=== PATIENT | male | born 1955 | race Caucasian/White ===

== ENCOUNTER 2017-07-23 15:53 | Inpatient (IN) ==
--- NOTE | 2017-07-23 16:07 | Emergency Department Note ---
Disposition Clinical Impression: Acute kidney injury, Cholecystitis Anemia Qualifiers: Anemia type: unspecified type Qualified Code(s): D64.9 - Anemia, unspecified [place] toxicity Qualifiers: Encounter type: initial encounter Injury intent: accidental or unintentional Qualified Code(s): T56.891A - Toxic effect of other metals, accidental ( unintentional), initial encounter Cholelithiasis Qualifiers: Cholelithiasis location: gallbladder Cholecystitis presence: with cholecystitis Cholecystitis acuity: acute Biliary obstruction: without biliary obstruction Qualified Code(s): K80.00 - Calculus of gallbladder with acute cholecystitis without obstruction Ascites Qualifiers: Ascites type: other type Qualified Code(s): R18.8 - Other ascites Disposition: Admitted As Inpatient Condition: Fair Time of Disposition: 20:27 General Adult HPI - General Chief complaint: ED Urogenital-Male Stated complaint: dialysis referral Time Seen by Provider: 07/23/17 15:59 Source: patient, EMS Nursing Notes Reviewed: Yes Vital Signs Reviewed: Yes - History of Present Illness HPI Narrative: Mr. Durand, a 62-year-old male, [facility] need [facility]. Patient appears confused and is not sure why he is here. States he has a history of cardiac problems but is otherwise unable to provide additional detail. He is alert to self, location, and here. He is not allergic to situation or month. Pain Scale: 0 - Related Data Home Medications Medication Instructions Recorded Confirmed Aspirin 81 mg PO DAILY 05/17/15 07/23/17 Doxepin [[place]] 25 mg PO BID 05/17/15 07/23/17 Albuterol Sulfate [Ventolin Hfa] 2 puff IH Q4H PRN 07/23/17 07/23/17 Atorvastatin Calcium [Lipitor] 20 mg PO HS 07/23/17 07/23/17 Buspirone HCl [Buspar] 10 mg PO BID 07/23/17 07/23/17 Carvedilol [Carvedilol] 12.5 mg PO BID 07/23/17 07/23/17 Citalopram Hydrobromide 40 mg PO QPM 07/23/17 07/23/17 [Citalopram HBr] Lansoprazole [Prevacid] 30 mg PO DAILY 07/23/17 07/23/17 [place] Carbonate [[place] 600 mg PO BID 07/23/17 07/23/17 Carbonate] Ropinirole HCl [Requip] 0.5 mg PO DAILY 07/23/17 07/23/17 Allergies Allergy/AdvReac Type Severity Reaction Status Date / Time No Known Allergies Allergy Verified 05/17/15 16:41 All systems ED: reviewed and negative except as stated. Review of Systems: As Per HPI Past Medical History - Past Medical History Medical history: Reports: asthma, COPD, hepatitis, myocardial infarction, peripheral artery disease Psychiatric history: Reports: anxiety, bipolar, depression, panic disorder, PTSD , schizophrenia - Social History Smoking Status: Current every day smoker Alcohol use: Reports: recent Drug use: Reports: other Physical Exam Vital Signs Reviewed General: Patient is alert, oriented, and in moderate distress-he is shaking, somnolent but otherwise stable and complains of no symptoms. HEENT: No facial asymmetry. Head is normocephalic and atraumatic. PERRLA, EOMI. mucosa moist. Trachea midline. Cardiovascular: Heart regular rate and rhythm without clicks, rubs, gallops, or murmurs. No JVD. PMI nondisplaced. Respiratory: Symmetric chest rise with good respiratory effort. Bilateral breath sounds are clear without wheezing, crackles, or rhonchi. Abdomen: Bowel sounds present normoactive . Abdomen is soft, distended, nontender. Unable to assess organomegaly secondary to patient's body habitus. Musculoskeletal: Spontaneously moving all extremities. Neuro: Cranial nerves II through XII without deficit. Sensation light touch intact. An: Warm, dry, intact. Psych: Patient's affect is appropriate for situation. - General General appearance: alert, in no apparent distress Course Course Narrative: On intake, patient is shaking with his arms crossed across his chest. Vital signs are stable. He has difficulty answering direct questions. He appears somnolent. He is maintaining his airway. We will continue to monitor. Per [facility] paperwork, patient is homeless and was at [facility]. He did not have room for them thus they [facility]. [facility] noted he was somnolent. [facility] lab work shows anemia with hemoglobin of 9, elevated bilirubin, elevated BUNs of 43, elevated creatinine of 3.37. At this point, they transferred the patient to this facility for dialysis. Patient is on lithium; could have lithium toxicity. Patient has acutely elevated creatinine. I discussed the patient with on-call general surgery, Dr. Brizuela, who agrees to see the patient as consultation. Given the patient has no white count, minimal elevation of bilirubin, and no elevation in a ALT or ALP, no indication at this time for antibiotics. I discussed the patient with the accepting hospitalist, Dr. Everett, who agrees to accept the patient with general surgery consultation. Abdomen/Pelvis CT 07/23/17 16:01 IMPRESSION: The gallbladder is distended, with some intraluminal stones identified. There is also some pericholecystic inflammatory change. Differential considerations include acute cholecystitis, though given the underlying intra-abdominal ascites, some of the periapical cholecystic fluid could be related to 3rd spacing. Intra-abdominal and pelvic ascites is identified, with some mesenteric edema noted as well. Changes may be related to 3rd spacing. No paraesophageal varices are identified. Splenomegaly is present. The liver does not appear shrunken or significantly nodular in appearance. Cirrhosis cannot be excluded. There is a small right pleural effusion, with bibasilar airspace disease and some bronchial thickening which may be related to bronchiolitis and bronchopneumonia. CT findings suggestive of anemia with low-attenuation within the cardiac chambers. D/ / Tho Yeager MD / Tho Yeager MD Interpreting Provider: Tho Yeager MD Head CT 07/23/17 16:01 IMPRESSION: No acute intracranial abnormality. D/ / Brandon Evans MD / Brandon Evans MD Interpreting Provider: Brandon Evans MD Chest X-Ray 07/23/17 16:02 IMPRESSION: Findings suggest congestive heart failure D/ / Brandon Evans MD / Brandon Evans MD Interpreting Provider: Brandon Evans MD Gallbladder Ultrasound 07/23/17 17:30 IMPRESSION: Cholelithiasis seen on CT is not definitely visualized on ultrasound which may be due to technical limitations. The gallbladder is distended and contains a small amount of sludge and has mild wall thickening which is nonspecific and may be due to the patient's edematous state. Mild acute cholecystitis is not entirely excluded. Clinical correlation recommended. No evidence of biliary obstruction. D/ / Diane Joseph MD / Diane Joseph MD Interpreting Provider: Diane Joseph MD Vital Signs Temperature 97.8 F 07/23/17 15:55 Pulse Rate 52 07/23/17 15:55 Respiratory Rate 18 07/23/17 15:55 Blood Pressure 120/62 07/23/17 15:55 O2 Sat by Pulse Oximetry 98 07/23/17 15:55 Temperature 97.8 F 07/23/17 15:55 Pulse Rate 51 07/23/17 19:19 Respiratory Rate 18 07/23/17 20:44 Blood Pressure 135/67 07/23/17 20:44 O2 Sat by Pulse Oximetry 100 07/23/17 19:19 Oxygen Delivery Oxygen Delivery Room Air Medical Decision Making - Medical Records Medical records reviewed: Yes I reviewed the patient's medical records. - Lab Data Lab results reviewed: Yes I reviewed the patient's lab results. Result diagrams: 07/23/17 17:20 07/23/17 19:01 Lab Results 07/23/17 07/23/17 07/23/17 Range/Units 17:20 17:20 17:20 WBC 5.1 (4.3-11.1) K/mcL RBC 2.64 L (4.19-5.50) M/mcL Hgb 8.5 L (12.9-16.9) g/dL Hct 27.2 L (37.5-50.1) % MCV 103.0 H (83.0-100.0) fL MCH 32.2 (28.0-33.3) pg MCHC 31.3 L (31.6-35.5) g/dL RDW 15.4 H (11.5-14.5) % Plt Count 62 L (140-400) K/mcL MPV 11.3 (9.4-12.4) fL Immature Gran % 0.4 (0-4) % Seg Neutrophils % 64.9 % Lymphocytes % 20.3 % Monocytes % 10.5 % Eosinophils % 3.1 % Basophils % 0.8 % Neutrophils # 3.3 (1.6-8.9) K/mcL Lymphocytes # 1.0 (0.6-4.6) K/mcL Monocytes # 0.5 (0.0-1.3) K/mcL Eosinophils # 0.2 (0.0-0.6) K/mcL Basophils # 0.0 (0.0-0.2) K/mcL Immature Plt Fraction 7.1 H (1.1-6.1) % Sodium (136-145) mEq/L Potassium (3.5-4.5) mEq/L Chloride (98-109) mEq/L Carbon Dioxide (19-29) mEq/L BUN (8-26) mg/dL Creatinine (0.72-1.25) mg/dL Est GFR ( Amer) (> 60) Est GFR (Non-Af Amer) (> 60) BUN/Creatinine Ratio (6-26) Glucose (70-99) mg/dL Calculated Osmolality (280-300) Lactic Acid 0.9 (0.5-2.2) mmol/L Calcium (8.6-10.8) mg/dL Total Bilirubin 1.4 H (0.2-1.2) mg/dL Direct Bilirubin 0.7 H (0.0-0.5) mg/dL Indirect Bilirubin 0.7 (0.0-1.2) mg/dL AST 48 H (5-34) Units/L ALT 25 (0-55) Units/L Alkaline Phosphatase 105 (38-126) Units/L Ammonia (18-72) mcmol/L Troponin I (0-0.03) ng/mL B-Natriuretic Peptide (0-100) pg/mL Serum Total Protein 6.9 (6.0-8.3) g/dL Albumin 2.7 L (3.5-5.0) g/dL Globulin 4.2 H (2.4-3.5) g/dL Albumin/Globulin Ratio 0.6 L (1.1-2.2) Lipase 81 H (8-78) Units/L Urine Color (Yellow) Urine Clarity (Clear) Urine pH (5.0-8.0) pH Units Ur Specific [place] (1.010-1.025) Urine Protein (Neg-Trace) mg/dL Urine Glucose (UA) (Normal) mg/dL Urine Ketones (Negative) mg/dL Urine Blood (Negative) Urine Nitrite (Negative) Urine Bilirubin (Negative) Urine Urobilinogen (Normal) mg/dL Ur Leukocyte Esterase (Negative) Urine Microscopic RBC (0-3) per hpf Urine Microscopic WBC (0-3) per hpf Ur Squamous Epith Cells (None-Few) per lpf Urine Bacteria (None-Few) per hpf Hyaline Casts (None-Few) per lpf [place] (0.6-1.2) mEq/L Hepatitis A IgM Ab (Nonreactive) Hep Bs Antigen (Nonreactive) Hep B Core IgM Ab (Nonreactive) Hepatitis C Ab Screen (Nonreactive) 07/23/17 07/23/17 07/23/17 Range/Units 17:20 17:20 17:20 WBC (4.3-11.1) K/mcL RBC (4.19-5.50) M/mcL Hgb (12.9-16.9) g/dL Hct (37.5-50.1) % MCV (83.0-100.0) fL MCH (28.0-33.3) pg MCHC (31.6-35.5) g/dL RDW (11.5-14.5) % Plt Count (140-400) K/mcL MPV (9.4-12.4) fL Immature Gran % (0-4) % Seg Neutrophils % % Lymphocytes % % Monocytes % % Eosinophils % % Basophils % % Neutrophils # (1.6-8.9) K/mcL Lymphocytes # (0.6-4.6) K/mcL Monocytes # (0.0-1.3) K/mcL Eosinophils # (0.0-0.6) K/mcL Basophils # (0.0-0.2) K/mcL Immature Plt Fraction (1.1-6.1) % Sodium (136-145) mEq/L Potassium (3.5-4.5) mEq/L Chloride (98-109) mEq/L Carbon Dioxide (19-29) mEq/L BUN (8-26) mg/dL Creatinine (0.72-1.25) mg/dL Est GFR ( Amer) (> 60) Est GFR (Non-Af Amer) (> 60) BUN/Creatinine Ratio (6-26) Glucose (70-99) mg/dL Calculated Osmolality (280-300) Lactic Acid (0.5-2.2) mmol/L Calcium (8.6-10.8) mg/dL Total Bilirubin (0.2-1.2) mg/dL Direct Bilirubin (0.0-0.5) mg/dL Indirect Bilirubin (0.0-1.2) mg/dL AST (5-34) Units/L ALT (0-55) Units/L Alkaline Phosphatase (38-126) Units/L Ammonia (18-72) mcmol/L Troponin I 0.01 (0-0.03) ng/mL B-Natriuretic Peptide 792 H (0-100) pg/mL Serum Total Protein (6.0-8.3) g/dL Albumin (3.5-5.0) g/dL Globulin (2.4-3.5) g/dL Albumin/Globulin Ratio (1.1-2.2) Lipase (8-78) Units/L Urine Color (Yellow) Urine Clarity (Clear) Urine pH (5.0-8.0) pH Units Ur Specific [place] (1.010-1.025) Urine Protein (Neg-Trace) mg/dL Urine Glucose (UA) (Normal) mg/dL Urine Ketones (Negative) mg/dL Urine Blood (Negative) Urine Nitrite (Negative) Urine Bilirubin (Negative) Urine Urobilinogen (Normal) mg/dL Ur Leukocyte Esterase (Negative) Urine Microscopic RBC (0-3) per hpf Urine Microscopic WBC (0-3) per hpf Ur Squamous Epith Cells (None-Few) per lpf Urine Bacteria (None-Few) per hpf Hyaline Casts (None-Few) per lpf [place] (0.6-1.2) mEq/L Hepatitis A IgM Ab Nonreactive (Nonreactive) Hep Bs Antigen Nonreactive (Nonreactive) Hep B Core IgM Ab Nonreactive (Nonreactive) Hepatitis C Ab Screen Reactive H (Nonreactive) 07/23/17 07/23/17 07/23/17 Range/Units 17:20 17:33 19:01 WBC (4.3-11.1) K/mcL RBC (4.19-5.50) M/mcL Hgb (12.9-16.9) g/dL Hct (37.5-50.1) % MCV (83.0-100.0) fL MCH (28.0-33.3) pg MCHC (31.6-35.5) g/dL RDW (11.5-14.5) % Plt Count (140-400) K/mcL MPV (9.4-12.4) fL Immature Gran % (0-4) % Seg Neutrophils % % Lymphocytes % % Monocytes % % Eosinophils % % Basophils % % Neutrophils # (1.6-8.9) K/mcL Lymphocytes # (0.6-4.6) K/mcL Monocytes # (0.0-1.3) K/mcL Eosinophils # (0.0-0.6) K/mcL Basophils # (0.0-0.2) K/mcL Immature Plt Fraction (1.1-6.1) % Sodium (136-145) mEq/L Potassium (3.5-4.5) mEq/L Chloride (98-109) mEq/L Carbon Dioxide (19-29) mEq/L BUN (8-26) mg/dL Creatinine (0.72-1.25) mg/dL Est GFR ( Amer) (> 60) Est GFR (Non-Af Amer) (> 60) BUN/Creatinine Ratio (6-26) Glucose (70-99) mg/dL Calculated Osmolality (280-300) Lactic Acid (0.5-2.2) mmol/L Calcium (8.6-10.8) mg/dL Total Bilirubin (0.2-1.2) mg/dL Direct Bilirubin (0.0-0.5) mg/dL Indirect Bilirubin (0.0-1.2) mg/dL AST (5-34) Units/L ALT (0-55) Units/L Alkaline Phosphatase (38-126) Units/L Ammonia 31 (18-72) mcmol/L Troponin I (0-0.03) ng/mL B-Natriuretic Peptide (0-100) pg/mL Serum Total Protein (6.0-8.3) g/dL Albumin (3.5-5.0) g/dL Globulin (2.4-3.5) g/dL Albumin/Globulin Ratio (1.1-2.2) Lipase (8-78) Units/L Urine Color Yellow (Yellow) Urine Clarity Clear (Clear) Urine pH 6.0 (5.0-8.0) pH Units Ur Specific [place] 1.017 (1.010-1.025) Urine Protein Trace (Neg-Trace) mg/dL Urine Glucose (UA) Normal (Normal) mg/dL Urine Ketones Negative (Negative) mg/dL Urine Blood Small H (Negative) Urine Nitrite Negative (Negative) Urine Bilirubin Negative (Negative) Urine Urobilinogen Normal (Normal) mg/dL Ur Leukocyte Esterase Negative (Negative) Urine Microscopic RBC 3-5 H (0-3) per hpf Urine Microscopic WBC 3-5 H (0-3) per hpf Ur Squamous Epith Cells Many H (None-Few) per lpf Urine Bacteria None Seen (None-Few) per hpf Hyaline Casts None Seen (None-Few) per lpf [place] 3.1 H* (0.6-1.2) mEq/L Hepatitis A IgM Ab (Nonreactive) Hep Bs Antigen (Nonreactive) Hep B Core IgM Ab (Nonreactive) Hepatitis C Ab Screen (Nonreactive) 07/23/17 Range/Units 19:01 WBC (4.3-11.1) K/mcL RBC (4.19-5.50) M/mcL Hgb (12.9-16.9) g/dL Hct (37.5-50.1) % MCV (83.0-100.0) fL MCH (28.0-33.3) pg MCHC (31.6-35.5) g/dL RDW (11.5-14.5) % Plt Count (140-400) K/mcL MPV (9.4-12.4) fL Immature Gran % (0-4) % Seg Neutrophils % % Lymphocytes % % Monocytes % % Eosinophils % % Basophils % % Neutrophils # (1.6-8.9) K/mcL Lymphocytes # (0.6-4.6) K/mcL Monocytes # (0.0-1.3) K/mcL Eosinophils # (0.0-0.6) K/mcL Basophils # (0.0-0.2) K/mcL Immature Plt Fraction (1.1-6.1) % Sodium 133 L (136-145) mEq/L Potassium 4.5 (3.5-4.5) mEq/L Chloride 111 H (98-109) mEq/L Carbon Dioxide 18 L (19-29) mEq/L BUN 43 H (8-26) mg/dL Creatinine 3.27 H (0.72-1.25) mg/dL Est GFR ( Amer) 24 L (> 60) Est GFR (Non-Af Amer) 19 L (> 60) BUN/Creatinine Ratio 13 (6-26) Glucose 79 (70-99) mg/dL Calculated Osmolality 286 (280-300) Lactic Acid (0.5-2.2) mmol/L Calcium 9.1 (8.6-10.8) mg/dL Total Bilirubin (0.2-1.2) mg/dL Direct Bilirubin (0.0-0.5) mg/dL Indirect Bilirubin (0.0-1.2) mg/dL AST (5-34) Units/L ALT (0-55) Units/L Alkaline Phosphatase (38-126) Units/L Ammonia (18-72) mcmol/L Troponin I (0-0.03) ng/mL B-Natriuretic Peptide (0-100) pg/mL Serum Total Protein (6.0-8.3) g/dL Albumin (3.5-5.0) g/dL Globulin (2.4-3.5) g/dL Albumin/Globulin Ratio (1.1-2.2) Lipase (8-78) Units/L Urine Color (Yellow) Urine Clarity (Clear) Urine pH (5.0-8.0) pH Units Ur Specific [place] (1.010-1.025) Urine Protein (Neg-Trace) mg/dL Urine Glucose (UA) (Normal) mg/dL Urine Ketones (Negative) mg/dL Urine Blood (Negative) Urine Nitrite (Negative) Urine Bilirubin (Negative) Urine Urobilinogen (Normal) mg/dL Ur Leukocyte Esterase (Negative) Urine Microscopic RBC (0-3) per hpf Urine Microscopic WBC (0-3) per hpf Ur Squamous Epith Cells (None-Few) per lpf Urine Bacteria (None-Few) per hpf Hyaline Casts (None-Few) per lpf [place] (0.6-1.2) mEq/L Hepatitis A IgM Ab (Nonreactive) Hep Bs Antigen (Nonreactive) Hep B Core IgM Ab (Nonreactive) Hepatitis C Ab Screen (Nonreactive) - EKG Data EKG #1 EKG attestation: Yes I reviewed and interpreted this EKG. EKG results narrative: EKG dated 07/28/1716: 10 interpreted as sinus bradycardia with a rate of 50. Prolonged SD at 221. Sinus bradycardia with first-degree AV block. QRS 28, QT/QTC 49/462. Diffuse T-wave flattening present compared to EKG. Compared to previous EKG dated 02/09/2014 showing no acute ischemic changes.
--- NOTE | 2017-07-23 16:22 | Emergency Department Note ---
Disposition Clinical Impression: Acute kidney injury, Anemia, [place] toxicity, Cholelithiasis, Cholecystitis, Ascites Disposition: Admitted As Inpatient Condition: Fair General Adult HPI - General Chief complaint: ED General Medical Stated complaint: dialysis referral Time Seen by Provider: 07/23/17 15:59 Source: patient, EMS - History of Present Illness Pain Scale: 0 - Related Data Home Medications Medication Instructions Recorded Confirmed Aspirin 81 mg PO DAILY 05/17/15 07/23/17 Doxepin [Sinequan] 25 mg PO BID 05/17/15 07/23/17 Albuterol Sulfate [Ventolin Hfa] 2 puff IH Q4H PRN 07/23/17 07/23/17 Atorvastatin Calcium [Lipitor] 20 mg PO HS 07/23/17 07/23/17 Buspirone HCl [Buspar] 10 mg PO BID 07/23/17 07/23/17 Carvedilol [Carvedilol] 12.5 mg PO BID 07/23/17 07/23/17 Citalopram Hydrobromide 40 mg PO QPM 07/23/17 07/23/17 [Citalopram HBr] Lansoprazole [Prevacid] 30 mg PO DAILY 07/23/17 07/23/17 [place] Carbonate [[place] 600 mg PO BID 07/23/17 07/23/17 Carbonate] Ropinirole HCl [Requip] 0.5 mg PO DAILY 07/23/17 07/23/17 Allergies Allergy/AdvReac Type Severity Reaction Status Date / Time No Known Allergies Allergy Verified 05/17/15 16:41 Past Medical History - Past Medical History Medical history: Reports: asthma, COPD, hepatitis, myocardial infarction, peripheral artery disease Psychiatric history: Reports: anxiety, bipolar, depression, panic disorder, PTSD , schizophrenia - Social History Smoking Status: Current every day smoker Alcohol use: Reports: recent Drug use: Reports: other Physical Exam - General General appearance: alert, in no apparent distress Course Vital Signs Temperature 97.8 F 07/23/17 15:55 Pulse Rate 52 07/23/17 15:55 Respiratory Rate 18 07/23/17 15:55 Blood Pressure 120/62 07/23/17 15:55 O2 Sat by Pulse Oximetry 98 07/23/17 15:55 Temperature 97.8 F 07/23/17 15:55 Pulse Rate 51 07/23/17 19:19 Respiratory Rate 18 07/23/17 20:44 Blood Pressure 135/67 07/23/17 20:44 O2 Sat by Pulse Oximetry 100 07/23/17 19:19 Oxygen Delivery Oxygen Delivery Room Air Medical Decision Making - Lab Data Result diagrams: 07/23/17 17:20 07/23/17 19:01 Lab Results 07/23/17 07/23/17 07/23/17 Range/Units 17:20 17:20 17:20 WBC 5.1 (4.3-11.1) K/mcL RBC 2.64 L (4.19-5.50) M/mcL Hgb 8.5 L (12.9-16.9) g/dL Hct 27.2 L (37.5-50.1) % MCV 103.0 H (83.0-100.0) fL MCH 32.2 (28.0-33.3) pg MCHC 31.3 L (31.6-35.5) g/dL RDW 15.4 H (11.5-14.5) % Plt Count 62 L (140-400) K/mcL MPV 11.3 (9.4-12.4) fL Immature Gran % 0.4 (0-4) % Seg Neutrophils % 64.9 % Lymphocytes % 20.3 % Monocytes % 10.5 % Eosinophils % 3.1 % Basophils % 0.8 % Neutrophils # 3.3 (1.6-8.9) K/mcL Lymphocytes # 1.0 (0.6-4.6) K/mcL Monocytes # 0.5 (0.0-1.3) K/mcL Eosinophils # 0.2 (0.0-0.6) K/mcL Basophils # 0.0 (0.0-0.2) K/mcL Immature Plt Fraction 7.1 H (1.1-6.1) % Sodium (136-145) mEq/L Potassium (3.5-4.5) mEq/L Chloride (98-109) mEq/L Carbon Dioxide (19-29) mEq/L BUN (8-26) mg/dL Creatinine (0.72-1.25) mg/dL Est GFR ( Amer) (> 60) Est GFR (Non-Af Amer) (> 60) BUN/Creatinine Ratio (6-26) Glucose (70-99) mg/dL Calculated Osmolality (280-300) Lactic Acid 0.9 (0.5-2.2) mmol/L Calcium (8.6-10.8) mg/dL Total Bilirubin 1.4 H (0.2-1.2) mg/dL Direct Bilirubin 0.7 H (0.0-0.5) mg/dL Indirect Bilirubin 0.7 (0.0-1.2) mg/dL AST 48 H (5-34) Units/L ALT 25 (0-55) Units/L Alkaline Phosphatase 105 (38-126) Units/L Ammonia (18-72) mcmol/L Troponin I (0-0.03) ng/mL B-Natriuretic Peptide (0-100) pg/mL Serum Total Protein 6.9 (6.0-8.3) g/dL Albumin 2.7 L (3.5-5.0) g/dL Globulin 4.2 H (2.4-3.5) g/dL Albumin/Globulin Ratio 0.6 L (1.1-2.2) Lipase 81 H (8-78) Units/L Urine Color (Yellow) Urine Clarity (Clear) Urine pH (5.0-8.0) pH Units Ur Specific [place] (1.010-1.025) Urine Protein (Neg-Trace) mg/dL Urine Glucose (UA) (Normal) mg/dL Urine Ketones (Negative) mg/dL Urine Blood (Negative) Urine Nitrite (Negative) Urine Bilirubin (Negative) Urine Urobilinogen (Normal) mg/dL Ur Leukocyte Esterase (Negative) Urine Microscopic RBC (0-3) per hpf Urine Microscopic WBC (0-3) per hpf Ur Squamous Epith Cells (None-Few) per lpf Urine Bacteria (None-Few) per hpf Hyaline Casts (None-Few) per lpf [place] (0.6-1.2) mEq/L Hepatitis A IgM Ab (Nonreactive) Hep Bs Antigen (Nonreactive) Hep B Core IgM Ab (Nonreactive) Hepatitis C Ab Screen (Nonreactive) 07/23/17 07/23/17 07/23/17 Range/Units 17:20 17:20 17:20 WBC (4.3-11.1) K/mcL RBC (4.19-5.50) M/mcL Hgb (12.9-16.9) g/dL Hct (37.5-50.1) % MCV (83.0-100.0) fL MCH (28.0-33.3) pg MCHC (31.6-35.5) g/dL RDW (11.5-14.5) % Plt Count (140-400) K/mcL MPV (9.4-12.4) fL Immature Gran % (0-4) % Seg Neutrophils % % Lymphocytes % % Monocytes % % Eosinophils % % Basophils % % Neutrophils # (1.6-8.9) K/mcL Lymphocytes # (0.6-4.6) K/mcL Monocytes # (0.0-1.3) K/mcL Eosinophils # (0.0-0.6) K/mcL Basophils # (0.0-0.2) K/mcL Immature Plt Fraction (1.1-6.1) % Sodium (136-145) mEq/L Potassium (3.5-4.5) mEq/L Chloride (98-109) mEq/L Carbon Dioxide (19-29) mEq/L BUN (8-26) mg/dL Creatinine (0.72-1.25) mg/dL Est GFR ( Amer) (> 60) Est GFR (Non-Af Amer) (> 60) BUN/Creatinine Ratio (6-26) Glucose (70-99) mg/dL Calculated Osmolality (280-300) Lactic Acid (0.5-2.2) mmol/L Calcium (8.6-10.8) mg/dL Total Bilirubin (0.2-1.2) mg/dL Direct Bilirubin (0.0-0.5) mg/dL Indirect Bilirubin (0.0-1.2) mg/dL AST (5-34) Units/L ALT (0-55) Units/L Alkaline Phosphatase (38-126) Units/L Ammonia (18-72) mcmol/L Troponin I 0.01 (0-0.03) ng/mL B-Natriuretic Peptide 792 H (0-100) pg/mL Serum Total Protein (6.0-8.3) g/dL Albumin (3.5-5.0) g/dL Globulin (2.4-3.5) g/dL Albumin/Globulin Ratio (1.1-2.2) Lipase (8-78) Units/L Urine Color (Yellow) Urine Clarity (Clear) Urine pH (5.0-8.0) pH Units Ur Specific [place] (1.010-1.025) Urine Protein (Neg-Trace) mg/dL Urine Glucose (UA) (Normal) mg/dL Urine Ketones (Negative) mg/dL Urine Blood (Negative) Urine Nitrite (Negative) Urine Bilirubin (Negative) Urine Urobilinogen (Normal) mg/dL Ur Leukocyte Esterase (Negative) Urine Microscopic RBC (0-3) per hpf Urine Microscopic WBC (0-3) per hpf Ur Squamous Epith Cells (None-Few) per lpf Urine Bacteria (None-Few) per hpf Hyaline Casts (None-Few) per lpf [place] (0.6-1.2) mEq/L Hepatitis A IgM Ab Nonreactive (Nonreactive) Hep Bs Antigen Nonreactive (Nonreactive) Hep B Core IgM Ab Nonreactive (Nonreactive) Hepatitis C Ab Screen Reactive H (Nonreactive) 07/23/17 07/23/17 07/23/17 Range/Units 17:20 17:33 19:01 WBC (4.3-11.1) K/mcL RBC (4.19-5.50) M/mcL Hgb (12.9-16.9) g/dL Hct (37.5-50.1) % MCV (83.0-100.0) fL MCH (28.0-33.3) pg MCHC (31.6-35.5) g/dL RDW (11.5-14.5) % Plt Count (140-400) K/mcL MPV (9.4-12.4) fL Immature Gran % (0-4) % Seg Neutrophils % % Lymphocytes % % Monocytes % % Eosinophils % % Basophils % % Neutrophils # (1.6-8.9) K/mcL Lymphocytes # (0.6-4.6) K/mcL Monocytes # (0.0-1.3) K/mcL Eosinophils # (0.0-0.6) K/mcL Basophils # (0.0-0.2) K/mcL Immature Plt Fraction (1.1-6.1) % Sodium (136-145) mEq/L Potassium (3.5-4.5) mEq/L Chloride (98-109) mEq/L Carbon Dioxide (19-29) mEq/L BUN (8-26) mg/dL Creatinine (0.72-1.25) mg/dL Est GFR ( Amer) (> 60) Est GFR (Non-Af Amer) (> 60) BUN/Creatinine Ratio (6-26) Glucose (70-99) mg/dL Calculated Osmolality (280-300) Lactic Acid (0.5-2.2) mmol/L Calcium (8.6-10.8) mg/dL Total Bilirubin (0.2-1.2) mg/dL Direct Bilirubin (0.0-0.5) mg/dL Indirect Bilirubin (0.0-1.2) mg/dL AST (5-34) Units/L ALT (0-55) Units/L Alkaline Phosphatase (38-126) Units/L Ammonia 31 (18-72) mcmol/L Troponin I (0-0.03) ng/mL B-Natriuretic Peptide (0-100) pg/mL Serum Total Protein (6.0-8.3) g/dL Albumin (3.5-5.0) g/dL Globulin (2.4-3.5) g/dL Albumin/Globulin Ratio (1.1-2.2) Lipase (8-78) Units/L Urine Color Yellow (Yellow) Urine Clarity Clear (Clear) Urine pH 6.0 (5.0-8.0) pH Units Ur Specific [place] 1.017 (1.010-1.025) Urine Protein Trace (Neg-Trace) mg/dL Urine Glucose (UA) Normal (Normal) mg/dL Urine Ketones Negative (Negative) mg/dL Urine Blood Small H (Negative) Urine Nitrite Negative (Negative) Urine Bilirubin Negative (Negative) Urine Urobilinogen Normal (Normal) mg/dL Ur Leukocyte Esterase Negative (Negative) Urine Microscopic RBC 3-5 H (0-3) per hpf Urine Microscopic WBC 3-5 H (0-3) per hpf Ur Squamous Epith Cells Many H (None-Few) per lpf Urine Bacteria None Seen (None-Few) per hpf Hyaline Casts None Seen (None-Few) per lpf [place] 3.1 H* (0.6-1.2) mEq/L Hepatitis A IgM Ab (Nonreactive) Hep Bs Antigen (Nonreactive) Hep B Core IgM Ab (Nonreactive) Hepatitis C Ab Screen (Nonreactive) 07/23/17 Range/Units 19:01 WBC (4.3-11.1) K/mcL RBC (4.19-5.50) M/mcL Hgb (12.9-16.9) g/dL Hct (37.5-50.1) % MCV (83.0-100.0) fL MCH (28.0-33.3) pg MCHC (31.6-35.5) g/dL RDW (11.5-14.5) % Plt Count (140-400) K/mcL MPV (9.4-12.4) fL Immature Gran % (0-4) % Seg Neutrophils % % Lymphocytes % % Monocytes % % Eosinophils % % Basophils % % Neutrophils # (1.6-8.9) K/mcL Lymphocytes # (0.6-4.6) K/mcL Monocytes # (0.0-1.3) K/mcL Eosinophils # (0.0-0.6) K/mcL Basophils # (0.0-0.2) K/mcL Immature Plt Fraction (1.1-6.1) % Sodium 133 L (136-145) mEq/L Potassium 4.5 (3.5-4.5) mEq/L Chloride 111 H (98-109) mEq/L Carbon Dioxide 18 L (19-29) mEq/L BUN 43 H (8-26) mg/dL Creatinine 3.27 H (0.72-1.25) mg/dL Est GFR ( Amer) 24 L (> 60) Est GFR (Non-Af Amer) 19 L (> 60) BUN/Creatinine Ratio 13 (6-26) Glucose 79 (70-99) mg/dL Calculated Osmolality 286 (280-300) Lactic Acid (0.5-2.2) mmol/L Calcium 9.1 (8.6-10.8) mg/dL Total Bilirubin (0.2-1.2) mg/dL Direct Bilirubin (0.0-0.5) mg/dL Indirect Bilirubin (0.0-1.2) mg/dL AST (5-34) Units/L ALT (0-55) Units/L Alkaline Phosphatase (38-126) Units/L Ammonia (18-72) mcmol/L Troponin I (0-0.03) ng/mL B-Natriuretic Peptide (0-100) pg/mL Serum Total Protein (6.0-8.3) g/dL Albumin (3.5-5.0) g/dL Globulin (2.4-3.5) g/dL Albumin/Globulin Ratio (1.1-2.2) Lipase (8-78) Units/L Urine Color (Yellow) Urine Clarity (Clear) Urine pH (5.0-8.0) pH Units Ur Specific [place] (1.010-1.025) Urine Protein (Neg-Trace) mg/dL Urine Glucose (UA) (Normal) mg/dL Urine Ketones (Negative) mg/dL Urine Blood (Negative) Urine Nitrite (Negative) Urine Bilirubin (Negative) Urine Urobilinogen (Normal) mg/dL Ur Leukocyte Esterase (Negative) Urine Microscopic RBC (0-3) per hpf Urine Microscopic WBC (0-3) per hpf Ur Squamous Epith Cells (None-Few) per lpf Urine Bacteria (None-Few) per hpf Hyaline Casts (None-Few) per lpf [place] (0.6-1.2) mEq/L Hepatitis A IgM Ab (Nonreactive) Hep Bs Antigen (Nonreactive) Hep B Core IgM Ab (Nonreactive) Hepatitis C Ab Screen (Nonreactive) Attestation Statement - Attestation Attestation: I examined this patient and my medical decision-making was reviewed with the Resident Physician. I agree with the documented findings, disposition and treatment plan as described except to the extent set forth below. [id number] time provided Patient arrives as a transfer from the [facility]. He was sent here due to an elevated creatinine. The patient is a poor historian on exam. He does have some abdominal distention. Home medication list reviewed by me 19:12: I did review the transcribed report of both CT abdomen and pelvis and gallbladder ultrasound. I examined the patient and he does have some right upper quadrant discomfort with palpation. No peritoneal findings. We will discuss this case with the on-call surgeon and arrange consultation
[2017-07-23 17:39] LABS: Basophils % 0.8 %; Eosinophils # 0.2 K/mcL (0.0-0.6); Eosinophils % 3.1 %; Hematocrit 27.2 % (37.5-50.1); Hemoglobin 8.5 g/dL (12.9-16.9); Immature Granulocytes % 0.4 % (0-4); Immature Platelets 7.1 % (1.1-6.1); Lymphocytes % 20.3 %; Mean Corpuscular HGB Conc 31.3 g/dL (31.6-35.5); Mean Corpuscular Hemoglobin 32.2 pg (28.0-33.3); Mean Platelet Volume 11.3 fL (9.4-12.4); Monocytes % 10.5 %; Red Blood Count 2.64 M/mcL (4.19-5.50); Red Cell Distribution Width 15.4 % (11.5-14.5); Segmented Neutrophils % 64.9 %
[2017-07-23 17:40] LABS: Monocytes # 0.5 K/mcL (0.0-1.3); Neutrophils # 3.3 K/mcL (1.6-8.9)
[2017-07-23 17:42] LABS: Platelet Count 62 K/mcL (140-400)
[2017-07-23 17:55] LABS: Albumin 2.7 g/dL (3.5-5.0); Albumin/Globulin Ratio 0.6 (1.1-2.2); Bilirubin,Direct 0.7 mg/dL (0.0-0.5); Bilirubin,Indirect 0.7 mg/dL (0.0-1.2); Bilirubin,Total 1.4 mg/dL (0.2-1.2); Globulin 4.2 g/dL (2.4-3.5); Total Protein 6.9 g/dL (6.0-8.3)
[2017-07-23 18:27] LABS: Bilirubin,Urine Negative (Negative); Blood,Urine Small (Negative); Clarity,Urine Clear (Clear); Color,Urine Yellow (Yellow); Glucose,Urine (UA) Normal (Normal); Ketones,Urine Negative (Negative); Leukocyte Esterase,Urine Negative (Negative); Nitrite,Urine Negative (Negative); Protein,Urine Trace mg/dL (Neg-Trace); Specific Gravity,Urine 1.017 (1.010-1.025); Urobilinogen,Urine Normal (Normal)
[2017-07-23 18:30] LABS: Bacteria,Urine None Seen per hpf (None-Few); Hyaline Casts,Urine None Seen per lpf (None-Few); Squamous Epithelial Cell,Urine Many per lpf (None-Few)
[2017-07-23 19:00] LABS: Hepatitis A Antibody IgM Nonreactive (Nonreactive); Hepatitis B Core IgM Nonreactive (Nonreactive); Hepatitis B Surface Antigen Nonreactive (Nonreactive)
[2017-07-23 19:03] LABS: Hepatitis C Virus Antibody Reactive (Nonreactive)
[2017-07-23 19:20] LABS: Calcium 9.1 mg/dL (8.6-10.8); Potassium 4.5 mEq/L (3.5-4.5)
[2017-07-23] MEDS ORDERED: Furosemide 40 MG/4 ML VIAL IVP ONE (20:28)
[2017-07-23] MEDS ORDERED: Naloxone 0.4 MG/ML INJ IVP PRN (20:30)
--- NOTE | 2017-07-23 20:35 | Internal Med History&Physical ---
Date of Encounter: 07/23/17 Time of Encounter: 22:12 Assessment and Plan (1) Pulmonary edema Current visit: Yes Status: Acute Patient is sitting comfortably without hypoxia CXR shows pulm edema Secondary to fluid overload from possible cirrhosis, KUSUM and CHF Supplemental O2 prn Lasix IV 60mg once and 40mg BID from a.m No emergent indication for hemodialysis at this time Qualifiers: Chronicity: acute Qualified Code(s): J81.0 - Acute pulmonary edema (2) CHF (congestive heart failure) Current visit: Yes Status: Acute Patient denies known prior hx of CHF Patient presents with SOB, leg swelling, anasarca, elevated BNP Continue lasix 40mg BID IV One time dose of 60mg lasix now Obtain ECHO 1.5 L fluid restriction. Strict intake and output No urgent indication for cardiology eval at this time, follow ECHO and consult prn Qualifiers: Congestive heart failure type: unspecified congestive heart failure type Congestive heart failure chronicity: acute Qualified Code(s): I50.9 - Heart failure, unspecified (3) Acute kidney injury Current visit: Yes Status: Acute Patient with KUSUM Possibly cardiorenal, 3rd spacing or and hypoperfusion K is acceptable CO2 is 18 Follow Chem with lasix dosing Strict I/O Obtain renal USS No evidence of stones on CT scan Nephrology has been consulted (4) Anemia Current visit: Yes Status: Chronic Possibly acute on chronic Patient reports black stools Obtain FOBT Anemia work up with a.m labs, type and screen Qualifiers: Anemia type: unspecified type Qualified Code(s): D64.9 - Anemia, unspecified (5) Ascites Current visit: Yes Status: Acute Possibly due to cirrhosis , as patient reports heavy alcohol intake in the past , and is a known Hep C Consult IR for diagnostic and therapeutic paracentensis No suspicion of SBP for now No abdominal pain and no tenderness Qualifiers: Ascites type: due to alcoholic cirrhosis Qualified Code(s): K70.31 - Alcoholic cirrhosis of liver with ascites (6) Cholecystitis Current visit: Yes Status: Suspected Suspected, unlikely Continue to monitor Surgery has been consulted by ER, patient is pain free No indication for antibiotics at this time (7) [place] toxicity Current visit: Yes Status: Acute [place] on admission 3.1 Hold lithium Monitor daily Psych eval non-emergently for alternatives if patient has mood imbalances. Mood is stable at this time Qualifiers: Encounter type: initial encounter Injury intent: accidental or unintentional Qualified Code(s): T56.891A - Toxic effect of other metals, accidental (unintentional), initial encounter Internal Medicine - H&P: HPI Chief complaint: Shortness of breath Admitted From: Hospital to Hospital Transfer Plans for Post Hospital Care: Home History of present illness: Mr. Durand is a 62 year old male with PMH of depression/anxiety, Homeless. Prior alcohol abuse quit 04/2017. [place] [facility] Presented as a referral from the [place] for "evaluation for HD" patient is seen and evaluated at bedside in the ER He reports his symptoms date back to three weeks ago when he developed progressive shortness of breath, which progressed from on exertion to at rest. He also reports decreasing exercise tolerance. This was followed by leg swelling and pain in both legs. He reports a dry cough without fever or chills, no hemoptysis. He lives in a long term but denies sick contacts. No chest pain He also reports associated early satiety , abdominal bloating, and poor appetite He has no abdominal pain. No change in bowel habits. He states that he has noticed his stools are getting darker, denies hematemesis , hematuria and he reports his urine output has also decreased, no diarrhea or constipation. Patient denies illicit drug use, and seemed slightly slower in mentation, but denies any confusion of neurologic symtpoms Other ROS is not contributory PMH as in chart. Work up in the ER revaled a lithium level of 3.1. Hyponatremia with Na of 133, K is 4.5m BUN/Cr elevated. Cr 3.27 (baseline is 1.3). Elevated bilirubin levels. BNP 792. Hepatitis C Ab positive. Imaging: CXR: Pulm edema and cardiomegaly, evidence of CHF. Abdomen CT: mesenteric edema, pelvic and abdominal ascites, splenomegaly. no evidence of liver cirrhosis. Possibly gall stones Gall bladder USS: Acalculous, suspected cholecystitis due to presence of sludge , no stones visible. EKG: sinus bradycardia, 1st degreee AV block, no St segment changes Past Med Surg Social Fam HX - Past Medical History Medical history: asthma, COPD, hepatitis, hypertension, myocardial infarction, peripheral artery disease Psychiatric history: anxiety, bipolar, depression, panic disorder, PTSD, schizophrenia - Social History Smoking Status: Current every day smoker Alcohol use: recent Drug use: other Internal Medicine - H&P: Meds Aspirin 81 mg PO DAILY 05/17/15 [History] Doxepin [[place]] 25 mg PO BID 05/17/15 [History] Albuterol Sulfate [Ventolin Hfa] 2 puff IH Q4H PRN 07/23/17 [History] Atorvastatin Calcium [Lipitor] 20 mg PO HS 07/23/17 [History] Buspirone HCl [Buspar] 10 mg PO BID 07/23/17 [History] Carvedilol [Carvedilol] 12.5 mg PO BID 07/23/17 [History] Citalopram Hydrobromide [Citalopram HBr] 40 mg PO QPM 07/23/17 [History] Lansoprazole [Prevacid] 30 mg PO DAILY 07/23/17 [History] [place] Carbonate [[place] Carbonate] 600 mg PO BID 07/23/17 [History] Ropinirole HCl [Requip] 0.5 mg PO DAILY 07/23/17 [History] 3 Allergy/AdvReac Type Severity Reaction Status Date / Time No Known Allergies Allergy Verified 05/17/15 16:41 All Systems PM: A 10-system review of systems was performed and is negative for pertinent findings except as documented above in the HPI. - Constitutional Constitutional: as per HPI - EENT Eyes: as per HPI Ears: as per HPI Nose, mouth and throat: as per HPI - Cardiovascular Cardiovascular ROS IM: as per HPI - Respiratory Respiratory: as per HPI - Gastrointestinal Gastrointestinal: as per HPI - Musculoskeletal Musculoskeletal ROS IM: as per HPI - Integumentary Integumentary IM: as per HPI - Neurological Neurological ROS: as per HPI - Hematologic/Lymphatic Hematologic/Lymphatic: as per HPI - Constitutional Vitals: Temp Pulse Resp BP Pulse Ox 97.8 F 51 16 127/65 100 07/23/17 15:55 07/23/17 19:19 07/23/17 19:19 07/23/17 19:19 07/23/17 19:19 General appearance: Present: disheveled, A&O X 3, pleasant, no acute distress, obese - Head Head exam: Present: atraumatic, normocephalic - Eye Eye exam: Present: PERRL, conjuntiva pink, sclera anicteric Pupils: Present: PERRL - ENT ENT exam: Present: mucous membranes moist - Neck Additional comments: no JVD - Respiratory Additional comments: bibasal crackles, no rhonchi. - Cardiovascular Cardiovascular exam: Present: RRR, +S1, +S2. Absent: diastolic murmur, gallop, rubs, systolic murmur - GI/Abdominal Additional comments: slightly distended, not tender, no guarding, no rebound. Shifting dulness ++. No palpably enlarged organs, - Extremities Exam Extremities exam: Present: pedal edema (bilateral 2+ piting edema to the knees . ) - Neurological Exam Neurological exam: Present: alert, CN II-XII intact, oriented X3, no focal deficits. Absent: pronater drift, facial droop, speech deficit - Skin Skin exam: Present: dry Internal Med - H&P Results - Labs CBC & Chem 7: 07/23/17 17:20 07/23/17 19:01
[2017-07-23] MEDS: *HR* Heparin 5,000 UNIT/ML VIAL SQ SCH (23:29)
[2017-07-24 07:02] LABS: Basophils % 0.8 %; Hematocrit 27.8 % (37.5-50.1); Mean Corpuscular Volume 104.9 fL (83.0-100.0); Red Blood Count 2.65 M/mcL (4.19-5.50)
[2017-07-24 07:04] LABS: Basophils # 0.1 K/mcL (0.0-0.2); Eosinophils # 0.2 K/mcL (0.0-0.6); Eosinophils % 2.6 %; Hemoglobin 8.4 g/dL (12.9-16.9); Immature Granulocytes % 0.2 % (0-4); Immature Platelets 7.2 % (1.1-6.1); Lymphocytes % 15.2 %; Mean Corpuscular HGB Conc 30.2 g/dL (31.6-35.5); Mean Corpuscular Hemoglobin 31.7 pg (28.0-33.3); Mean Platelet Volume 11.8 fL (9.4-12.4); Monocytes # 0.7 K/mcL (0.0-1.3); Monocytes % 11.2 %; Neutrophils # 4.4 K/mcL (1.6-8.9); Red Cell Distribution Width 15.5 % (11.5-14.5)
[2017-07-24 07:07] LABS: Platelet Count 69 K/mcL (140-400)
[2017-07-24 07:12] LABS: Calcium 8.8 mg/dL (8.6-10.8); Potassium 4.3 mEq/L (3.5-4.5)
--- NOTE | 2017-07-24 07:52 | General Surgery Consult Note ---
Date of Encounter: 07/24/17 Time of Encounter: 15:00 Assessment and Plan (1) Cholelithiasis Current Visit: Yes Status: Acute I personally reviewed the CAT scan, ultrasound images. Correlating with his physical examination, I do not believe the patient has acute cholecystitis. We will be glad to follow along with you. Certainly his acute change in medical condition will need to be treated primarily. Qualifiers: Cholelithiasis location: gallbladder Cholecystitis presence: with cholecystitis Cholecystitis acuity: acute Biliary obstruction: without biliary obstruction Qualified Code(s): K80.00 - Calculus of gallbladder with acute cholecystitis without obstruction History of Present Illness Consult date: 07/24/17 Reason for consult: other (Acute mental status changes) History of present illness: The patient is a 62-year-old male who was admitted to the hospitalist service with acute mental status changes and acute kidney injury. During evaluation in the emergency room a CAT scan was obtained that demonstrated a dilated gallbladder and a suggestion of cholelithiasis. The patient has congestive heart failure and ascites as well as diffuse edema. This makes the diagnosis of pericolic cystic fluid quite difficult. I personally reviewed the CAT scan images. The patient has extensive pleural effusion and right lower lobe atelectasis with some air bronchograms. He also has ascites around the liver. The gallbladder is distended and I can see the radiolucent area in the neck of the gallbladder interpreted as gallstones. There does not appear to be biliary dilatation. Ultrasound of the gallbladder was ordered for confirmation. I personally reviewed the ultrasound gallbladder. The gallbladder somewhat distended however cholelithiasis could not be confirmed. Edema seemed to be more diffuse rather than localized around the gallbladder. My interpretation of these sets of images is that findings are not consistent with acute cholecystitis. I saw the patient this morning on rounds. He was able to answer a few questions but then drifted in and out of consciousness. He was able to tell me that he is not having any abdominal pain. The patient appears to suffer from congestive heart failure and acute kidney injury. I would not recommend proceeding with any surgery at this time. I will be glad to follow along with you. Past Med Surg Social Fam HX - Past Medical History Medical history: asthma, CHF, COPD, hepatitis, hypertension, myocardial infarction, peripheral artery disease, other (Ascites) Psychiatric history: anxiety, bipolar, depression, panic disorder, PTSD, schizophrenia - Social History Smoking Status: Current every day smoker Packs per day: 0.25 Alcohol use: recent Drug use: other Medications and Allergies Aspirin 81 mg PO DAILY 05/17/15 [History] Doxepin [Sinequan] 25 mg PO BID 05/17/15 [History] Albuterol Sulfate [Ventolin Hfa] 2 puff IH Q4H PRN 07/23/17 [History] Atorvastatin Calcium [Lipitor] 20 mg PO HS 07/23/17 [History] Buspirone HCl [Buspar] 10 mg PO BID 07/23/17 [History] Carvedilol [Carvedilol] 12.5 mg PO BID 07/23/17 [History] Citalopram Hydrobromide [Citalopram HBr] 40 mg PO QPM 07/23/17 [History] Lansoprazole [Prevacid] 30 mg PO DAILY 07/23/17 [History] Turin Carbonate [Turin Carbonate] 600 mg PO BID 07/23/17 [History] Ropinirole HCl [Requip] 0.5 mg PO DAILY 07/23/17 [History] 3 Allergy/AdvReac Type Severity Reaction Status Date / Time No Known Allergies Allergy Verified 05/17/15 16:41 Review of Systems All systems PM: A 10-system review of systems was performed and is negative for pertinent findings except as documented above in the HPI. General Surgery Exam Initial Vital Signs Temp Pulse Resp BP Pulse Ox 97.8 F 52 18 120/62 98 07/23/17 15:55 07/23/17 15:55 07/23/17 15:55 07/23/17 15:55 07/23/17 15:55 - General physical appearance well developed, well nourished, other (Diffusely edematous. He is somnolent and drifting in and out of consciousness. He is difficult to arouse.) - Neck no masses, no bruits, trachea midline, no lymphadectomy, no venous distension - Respiratory crackles: bilateral, wheezing: bilateral, rales: bilateral - Cardiovascular Cardiovascular exam: Present: RRR, no murmurs/rubs/gallops - Abdomen Abdomen general surgery: Present: bowel sounds present, soft, non tender - Neurologic Present: CN 2-12 grossly intact, confused, disoriented - Psychiatric Psychiatric general surgery: Present: other (The patient is oriented to self but disoriented to place and time.Drifting in and out of consciousness. Difficult to arouse.) Exam Initial Vital Signs Temp Pulse Resp BP Pulse Ox 97.8 F 52 18 120/62 98 07/23/17 15:55 07/23/17 15:55 07/23/17 15:55 07/23/17 15:55 07/23/17 15:55 Results - Labs 07/24/17 06:45 07/24/17 06:45 Abnormal lab results RBC 2.65 M/mcL (4.19-5.50) L 07/24/17 06:45 Hgb 8.4 g/dL (12.9-16.9) L 07/24/17 06:45 Hct 27.8 % (37.5-50.1) L 07/24/17 06:45 MCV 104.9 fL (83.0-100.0) H 07/24/17 06:45 MCHC 30.2 g/dL (31.6-35.5) L 07/24/17 06:45 RDW 15.5 % (11.5-14.5) H 07/24/17 06:45 Plt Count 69 K/mcL (140-400) L 07/24/17 06:45 Immature Plt Fraction 7.2 % (1.1-6.1) H 07/24/17 06:45 Sodium 134 mEq/L (136-145) L 07/24/17 06:45 Chloride 110 mEq/L (98-109) H 07/24/17 06:45 Carbon Dioxide 18 mEq/L (19-29) L 07/24/17 06:45 BUN 48 mg/dL (8-26) H 07/24/17 06:45 Creatinine 3.62 mg/dL (0.72-1.25) H 07/24/17 06:45 Est GFR ( Amer) 21 (> 60) L 07/24/17 06:45 Est GFR (Non-Af Amer) 17 (> 60) L 07/24/17 06:45 Glucose 106 mg/dL (70-99) H 07/24/17 06:45 Total Bilirubin 1.4 mg/dL (0.2-1.2) H 07/23/17 17:20 Direct Bilirubin 0.7 mg/dL (0.0-0.5) H 07/23/17 17:20 AST 48 Units/L (5-34) H 07/23/17 17:20 B-Natriuretic Peptide 792 pg/mL (0-100) H 07/23/17 17:20 Albumin 2.7 g/dL (3.5-5.0) L 07/23/17 17:20 Globulin 4.2 g/dL (2.4-3.5) H 07/23/17 17:20 Albumin/Globulin Ratio 0.6 (1.1-2.2) L 07/23/17 17:20 Lipase 81 Units/L (8-78) H 07/23/17 17:20 Urine Blood Small (Negative) H 07/23/17 17:33 Urine Microscopic RBC 3-5 per hpf (0-3) H 07/23/17 17:33 Urine Microscopic WBC 3-5 per hpf (0-3) H 07/23/17 17:33 Ur Squamous Epith Cells Many per lpf (None-Few) H 07/23/17 17:33 [place]in 3.0 mEq/L (0.6-1.2) H* 07/24/17 06:45 Hepatitis C Ab Screen Reactive (Nonreactive) H 07/23/17 17:20 Diabetes panel 07/24/17 Range/Units 06:45 Sodium 134 L (136-145) mEq/L Potassium 4.3 (3.5-4.5) mEq/L Chloride 110 H (98-109) mEq/L Carbon Dioxide 18 L (19-29) mEq/L BUN 48 H (8-26) mg/dL Creatinine 3.62 H (0.72-1.25) mg/dL Glucose 106 H (70-99) mg/dL Calcium 8.8 (8.6-10.8) mg/dL Calcium panel 07/24/17 Range/Units 06:45 Calcium 8.8 (8.6-10.8) mg/dL Pituitary panel 07/24/17 Range/Units 06:45 Sodium 134 L (136-145) mEq/L Potassium 4.3 (3.5-4.5) mEq/L Chloride 110 H (98-109) mEq/L Carbon Dioxide 18 L (19-29) mEq/L BUN 48 H (8-26) mg/dL Creatinine 3.62 H (0.72-1.25) mg/dL Glucose 106 H (70-99) mg/dL Calcium 8.8 (8.6-10.8) mg/dL Adrenal panel 07/24/17 Range/Units 06:45 Sodium 134 L (136-145) mEq/L Potassium 4.3 (3.5-4.5) mEq/L Chloride 110 H (98-109) mEq/L Carbon Dioxide 18 L (19-29) mEq/L BUN 48 H (8-26) mg/dL Creatinine 3.62 H (0.72-1.25) mg/dL Glucose 106 H (70-99) mg/dL Calcium 8.8 (8.6-10.8) mg/dL All other labs normal. - Imaging CT scan - abdomen: image reviewed (I personally reviewed the CAT scan of the abdomen. The gallbladder is distended but he has significant right pleural effusion, right atelectasis with air bronchograms, ascites around the liver, and diffuse edema. I can see the radiolucent area of the neck of the gallbladder interpreted this cholelithiasis) US - abdomen: image reviewed (I personally reviewed the images. Findings are consistent with diffuse edema, not localized the gallbladder. Cholelithiasis is not confirmed) Consult Discharge Plan - Plan Referrals: Jared Connelly MD [Primary Care Provider] -
[2017-07-24] MEDS ORDERED: Albuterol 2.5 MG/3 ML NEBULIZER IH PRN (08:14)
[2017-07-24 08:35] LABS: INR 1.4; Prothrombin Time 14.9 Seconds (9.4-12.1)
[2017-07-24] MEDS: rOPINIRole 1 MG TABLET PO SCH (09:05)
[2017-07-24] MEDS: Aspirin 81 MG TAB.CHEW PO SCH (09:05)
--- NOTE | 2017-07-24 09:22 | Internal Med Progress Note ---
Date of Encounter: 07/24/17 Time of Encounter: 09:08 - Assessment and plan (1) Acute metabolic encephalopathy Current Visit: Yes Status: Acute Assessment and plan: Mostly due to his lithium toxicity as well as chronic underline psychiatric problem Cont close monitoring 1 on 1 sitter Fall precautions (2) Alvo toxicity Current Visit: Yes Status: Acute Assessment and plan: Acute vs Chronic Not clear how long he is been on lithium..pt did mention he gets his medication from PCP, so will obtain records from PCP office Looks more like chronic toxicity. since his levels are still same @ 3.0 With his AMS, he may get benefit with HD Nephro is on board cont close monitoring his Alvo and Cr levels Qualifiers: Encounter type: initial encounter Injury intent: accidental or unintentional Qualified Code(s): T56.891A - Toxic effect of other metals, accidental (unintentional), initial encounter (3) Acute kidney injury Current Visit: Yes Status: Acute Assessment and plan: Worsening Cr Subramanian + Seems to be oliguric No documented out put Strict I & O (4) Cholelithiasis Current Visit: Yes Status: Chronic Assessment and plan: With out cholecystitis no abd pain No need of surgery Qualifiers: Cholelithiasis location: gallbladder Cholecystitis presence: with cholecystitis Cholecystitis acuity: acute Biliary obstruction: without biliary obstruction Qualified Code(s): K80.00 - Calculus of gallbladder with acute cholecystitis without obstruction (5) CHF (congestive heart failure) Current Visit: Yes Status: Acute Assessment and plan: Unclear Systolic vs Diastolic Cont IV Lasix May need HD.. If he still oliguric and Cr get worse resumed home med Coreg Hold ACEI Qualifiers: Congestive heart failure type: unspecified congestive heart failure type Congestive heart failure chronicity: acute Qualified Code(s): I50.9 - Heart failure, unspecified (6) Pulmonary edema cardiac cause Current Visit: Yes Status: Acute Assessment and plan: on Lasix Due to CHF May need HD (7) Acute respiratory failure with hypoxia Current Visit: Yes Status: Acute Assessment and plan: Due to pulm edema cont O2 and bronchodilators - Subjective Interval history: This is a 62 y/o M with known CHF, HTN, Known Hep C, and Schizophrenia / Bipolar on chronic lithium therapy was presented to ER with progressively worsening SOB and confusion. He seems to be in acute CHF exacerbation with pulmonary edema as well as in chronic lithium toxicity. Pt is alert, awake and oriented to self and place only. Looks confused and depressed. Slightly somnolent too. - Constitutional Vitals: Temp Pulse Resp BP Pulse Ox 97.8 F 54 16 102/57 90 07/24/17 07:24 07/24/17 07:24 07/24/17 07:24 07/24/17 07:24 07/24/17 07:24 General appearance: Present: A&O X 1, disheveled, no acute distress, obese - Head Head exam: Present: atraumatic, normal inspection - Respiratory Respiratory exam: Present: decreased breath sounds, rales (mild), wheezes (mild) . Absent: respiratory distress, rhonchi - Cardiovascular Cardiovascular exam: Present: RRR, +S1, +S2. Absent: systolic murmur - GI/Abdominal GI/Abdominal exam: Present: normal bowel sounds, soft. Absent: rebound, rigid, tenderness - Extremities Exam Extremities exam: Present: pedal edema (1+). Absent: calf tenderness, tenderness - Back Exam Back exam: Absent: CVA tenderness (L), CVA tenderness (R) - Neurological Exam Neurological exam: Present: altered - Psychiatric Psychiatric exam: Present: depressed. Absent: manic, suicidal ideation Internal Medicine: Result - Labs CBC & Chem 7: 07/24/17 06:45 07/24/17 06:45 Labs: Short CBC 07/24/17 Range/Units 06:45 WBC 6.3 (4.3-11.1) K/mcL Hgb 8.4 L (12.9-16.9) g/dL Hct 27.8 L (37.5-50.1) % Plt Count 69 L (140-400) K/mcL Neutrophils # 4.4 (1.6-8.9) K/mcL BMP 07/24/17 06:45 Sodium 134 L Potassium 4.3 Chloride 110 H Carbon Dioxide 18 L BUN 48 H Creatinine 3.62 H Glucose 106 H Calcium 8.8 - ABG Interpretation ABG results: PT/INR, D-dimer PT 14.9 Seconds (9.4-12.1) H 07/24/17 07:57 Consult Discharge Plan - Plan Referrals: Jared Connelly MD [Primary Care Provider] -
[2017-07-24] MEDS ORDERED: 0.9 % Sodium Chloride 250 ML IVC PRN (09:49)
[2017-07-24] MEDS: Pantoprazole 40 MG VIAL IVP SCH (10:40)
[2017-07-24] MEDS: Furosemide 40 MG/4 ML VIAL IVP SCH ×2 (10:40→18:44)
[2017-07-24] MEDS: *HR* Heparin 5,000 UNIT/ML VIAL SQ SCH ×3 (10:41→23:48)
[2017-07-24 10:51] LABS: Folate 11.8 ng/mL (7.0-31.4)
[2017-07-24] MEDS: Ipratropium/Albuterol Neb 3 ML IH SCH ×4 (11:00→23:28)
--- NOTE | 2017-07-24 11:48 | Nephrology Consult Note ---
Date of Encounter: 07/24/17 Time of Encounter: 11:45 Assessment and Plan (1) Acute kidney injury Current Visit: Yes Status: Acute Cr today is 3.62, worsened from yesterday. baseline kidney function: normal. Etiology likely secondary to lithium toxicity. Also consider ATN, hepatitis secondary to Hep C, ingestion of toxins/drugs, cardiorenal syndrome. Hep C positive Plan: CPK, lithium level check q4H, pending. check ammonia levels tomorrow morning. temporary dialysis catheter placement today with HD afterwards. will continue to monitor kidney funciton. follow renal protective strategy, avoid nephrotoxins. (2) Satsuma toxicity Current Visit: Yes Status: Acute as above Qualifiers: Encounter type: initial encounter Injury intent: accidental or unintentional Qualified Code(s): T56.891A - Toxic effect of other metals, accidental (unintentional), initial encounter (3) Encephalopathy Current Visit: Yes Status: Acute hard to tell if this is due to uremic symptoms vs underlying schizophrenia, as patient is a very poor historian and his baseline is unknown. continue to monitor. (4) Cholelithiasis Current Visit: Yes Status: Chronic per primary and surgery Qualifiers: Cholelithiasis location: gallbladder Cholecystitis presence: with cholecystitis Cholecystitis acuity: acute Biliary obstruction: without biliary obstruction Qualified Code(s): K80.00 - Calculus of gallbladder with acute cholecystitis without obstruction (5) CHF (congestive heart failure) Current Visit: Yes Status: Acute per primary Qualifiers: Congestive heart failure type: unspecified congestive heart failure type Congestive heart failure chronicity: acute Qualified Code(s): I50.9 - Heart failure, unspecified (6) Acute respiratory failure with hypoxia Current Visit: Yes Status: Acute per primary History of Present Illness - Reason for Consult Consult date: 07/24/17 Acute Kidney Injury Requesting physician: Oscar Degroot - Chief Complaint shorntess of breath - History of Present Illness 62M with PMHx of depression, anxiety, alcohol abuse, homelessness, hep C. [facility]. patient [facility] for shortness of breath x3 weeks, decreased exercise tolerance. patient is on lithium and his lithium levels were elevated. he presented with elevated Cr, and nephrology was consulted for evaluation for possible need for dialysis. Past Med Surg Social Fam HX - Past Medical History Medical history: asthma, CHF, COPD, hepatitis, hypertension, myocardial infarction, peripheral artery disease, other (Ascites) Psychiatric history: anxiety, bipolar, depression, panic disorder, PTSD, schizophrenia - Social History Smoking Status: Current every day smoker Packs per day: 0.25 Alcohol use: recent Drug use: other Medications and Allergies Aspirin 81 mg PO DAILY 05/17/15 [History] Doxepin [Sinequan] 25 mg PO BID 05/17/15 [History] Albuterol Sulfate [Ventolin Hfa] 2 puff IH Q4H PRN 07/23/17 [History] Atorvastatin Calcium [Lipitor] 20 mg PO HS 07/23/17 [History] Buspirone HCl [Buspar] 10 mg PO BID 07/23/17 [History] Carvedilol [Carvedilol] 12.5 mg PO BID 07/23/17 [History] Citalopram Hydrobromide [Citalopram HBr] 40 mg PO QPM 07/23/17 [History] Lansoprazole [Prevacid] 30 mg PO DAILY 07/23/17 [History] Satsuma Carbonate [Satsuma Carbonate] 600 mg PO BID 07/23/17 [History] Ropinirole HCl [Requip] 0.5 mg PO DAILY 07/23/17 [History] 3 Allergy/AdvReac Type Severity Reaction Status Date / Time No Known Allergies Allergy Verified 05/17/15 16:41 Review of Systems ROS unobtainable: due to mental status Exam - Vital Signs Vital signs: Initial Vital Signs Temp Pulse Resp BP Pulse Ox 97.8 F 52 18 120/62 98 07/23/17 15:55 07/23/17 15:55 07/23/17 15:55 07/23/17 15:55 07/23/17 15:55 Vital Signs - Last 8 Hours Temp Pulse Resp BP Pulse Ox 07/24/17 11:26 98.1 F 54 18 130/62 96 07/24/17 11:00 18 97 07/24/17 07:24 97.8 F 54 16 102/57 90 Intake and Output 07/23/17 07/24/17 07/24/17 23:59 07:59 15:59 Intake Total 480 / 480 0 / 0 Balance 480 / 480 0 / 0 Intake: Oral 480 / 480 0 / 0 Other: Meal npo Percent of Meal Consumed 0% Weight 95.9 kg Blood Glucose* 82 117 111 Patient Weight 07/24/17 23:59 Weight 95.9 kg - General Appearance General appearance: well-developed, well-nourished, appears started age, obese Exam: poor historian, alert and oriented x3, but unable to answer questions properly. Neck: JVD Respiratory: clear Cardiology: no murmurs, no rub, no gallops, regular rate, regular rhythm, normal S1, normal S2 Additional Comments: very mild pitting edema on bilateral lower extremities. Gastrointestinal: normoactive bowel sounds Additional Comments: distended, fluid wave noted, positive bowel sounds, non tender. Integumentary: no rash, warm and dry Additional Comments: poor historian, unable to answer questions properly. Musculoskeletal: no deformities, no erythema, no cyanosis Psychiatric: mood/affect appropriate Results - Lab Results 07/24/17 06:45 07/24/17 06:45 Most recent lab results Calcium 8.8 mg/dL (8.6-10.8) 07/24/17 06:45 Consult Discharge Plan - Plan Referrals: Jared Connelly MD [Primary Care Provider] -
--- NOTE | 2017-07-24 13:06 | General Surgery Progress Note ---
<Shyla Briscoe - Last Filed: 07/24/17 13:50> Date of Encounter: 07/24/17 Time of Encounter: 12:00 - Assessment and Plan (1) Cholelithiasis Current Visit: Yes Status: Chronic Cholelithiasis without evidence of cholecystitis. He is drowsy today and is noted to have a sitter at bedside for safety. His abdominal exam is benign despite the inability to obtain subjective information. There is no urgent surgical intervention indicated. Surgery will sign off at this time. Thank you for allowing us to participate and Mr. Durand's care. Please become salt if question their needs and rights. Qualifiers: Cholelithiasis location: gallbladder Cholecystitis presence: with cholecystitis Cholecystitis acuity: acute Biliary obstruction: without biliary obstruction Qualified Code(s): K80.00 - Calculus of gallbladder with acute cholecystitis without obstruction Subjective Narrative: Unable to obtain subjective information. Consider at bedside. Objective Vital Signs - Last 8 Hours Temp Pulse Resp BP Pulse Ox 07/24/17 11:26 98.1 F 54 18 130/62 96 07/24/17 11:00 18 97 07/24/17 07:24 97.8 F 54 16 102/57 90 Intake and Output 07/23/17 07/24/17 07/24/17 23:59 07:59 15:59 Intake Total 480 / 480 0 / 0 Balance 480 / 480 0 / 0 Intake: Oral 480 / 480 0 / 0 Other: Meal npo Percent of Meal Consumed 0% Weight 95.9 kg Blood Glucose* 82 117 111 Patient Weight 07/24/17 23:59 Weight 95.9 kg - General physical appearance other (Drowsy.) - ENT atraumatic, normocephalic - Neck Neck exam: trachea midline, no venous distension - Respiratory normal respiratory effort, clear to auscultation - Cardiovascular Cardiovascular exam: Present: RRR, distant heart sounds - Abdomen Abdomen: Present: bowel sounds present, soft, non tender Hernia: none - Neurologic normal coordination, normal sensation - Musculoskeletal normal posture - Psychiatric other (Drowsy. Sitter bedside) - Labs 07/24/17 06:45 07/24/17 06:45 Diabetes panel 07/24/17 Range/Units 06:45 Sodium 134 L (136-145) mEq/L Potassium 4.3 (3.5-4.5) mEq/L Chloride 110 H (98-109) mEq/L Carbon Dioxide 18 L (19-29) mEq/L BUN 48 H (8-26) mg/dL Creatinine 3.62 H (0.72-1.25) mg/dL Glucose 106 H (70-99) mg/dL Calcium 8.8 (8.6-10.8) mg/dL Calcium panel 07/24/17 Range/Units 06:45 Calcium 8.8 (8.6-10.8) mg/dL Pituitary panel 07/24/17 Range/Units 06:45 Sodium 134 L (136-145) mEq/L Potassium 4.3 (3.5-4.5) mEq/L Chloride 110 H (98-109) mEq/L Carbon Dioxide 18 L (19-29) mEq/L BUN 48 H (8-26) mg/dL Creatinine 3.62 H (0.72-1.25) mg/dL Glucose 106 H (70-99) mg/dL Calcium 8.8 (8.6-10.8) mg/dL Adrenal panel 07/24/17 Range/Units 06:45 Sodium 134 L (136-145) mEq/L Potassium 4.3 (3.5-4.5) mEq/L Chloride 110 H (98-109) mEq/L Carbon Dioxide 18 L (19-29) mEq/L BUN 48 H (8-26) mg/dL Creatinine 3.62 H (0.72-1.25) mg/dL Glucose 106 H (70-99) mg/dL Calcium 8.8 (8.6-10.8) mg/dL Consult Discharge Plan - Plan Referrals: Jared Connelly MD [Primary Care Provider] - (waiting on d/c plans) <Joe Chapman - Last Filed: 07/25/17 11:16> Date of Encounter: 07/24/17 - Assessment and Plan (1) Cholelithiasis Current Visit: Yes Status: Chronic Qualifiers: Cholelithiasis location: gallbladder Cholecystitis presence: with cholecystitis Cholecystitis acuity: acute Biliary obstruction: without biliary obstruction Qualified Code(s): K80.00 - Calculus of gallbladder with acute cholecystitis without obstruction Objective Vital Signs - Last 8 Hours Temp Pulse Resp BP Pulse Ox 07/25/17 10:30 99.8 F H 20 104/46 07/25/17 07:40 98.6 F 54 18 116/43 93 07/25/17 03:36 24 91 Intake and Output 07/24/17 07/25/17 07/25/17 23:59 07:59 15:59 Intake Total 600 / 600 Output Total 2600 / 2600 600 / 600 Balance -2600 / -2600 -600 / -600 600 / 600 Intake: Intake, Rinseback and Flushes 600 / 600 Output: Urine 0 / 0 300 / 300 Urethral (Subramanian) 300 / 300 Total Dialysis (HD) Output 2600 / 2600 Catheter 300 / 300 Other: Weight 95.6 kg Blood Glucose* 91 103 Hemodialysis Net Fluid Removed 2000 0 (mL) Patient Weight 07/25/17 23:59 Weight 95.6 kg - Labs 07/25/17 04:15 07/25/17 04:15 Diabetes panel 07/25/17 Range/Units 04:15 Sodium 135 L (136-145) mEq/L Potassium 3.8 (3.5-4.5) mEq/L Chloride 108 (98-109) mEq/L Carbon Dioxide 25 (19-29) mEq/L BUN 42 H (8-26) mg/dL Creatinine 3.25 H (0.72-1.25) mg/dL Glucose 89 (70-99) mg/dL Calcium 8.7 (8.6-10.8) mg/dL AST 44 H (5-34) Units/L ALT 22 (0-55) Units/L Alkaline Phosphatase 107 (38-126) Units/L Albumin 2.6 L (3.5-5.0) g/dL Calcium panel 07/25/17 Range/Units 04:15 Calcium 8.7 (8.6-10.8) mg/dL Albumin 2.6 L (3.5-5.0) g/dL Pituitary panel 07/25/17 Range/Units 04:15 Sodium 135 L (136-145) mEq/L Potassium 3.8 (3.5-4.5) mEq/L Chloride 108 (98-109) mEq/L Carbon Dioxide 25 (19-29) mEq/L BUN 42 H (8-26) mg/dL Creatinine 3.25 H (0.72-1.25) mg/dL Glucose 89 (70-99) mg/dL Calcium 8.7 (8.6-10.8) mg/dL Adrenal panel 07/25/17 Range/Units 04:15 Sodium 135 L (136-145) mEq/L Potassium 3.8 (3.5-4.5) mEq/L Chloride 108 (98-109) mEq/L Carbon Dioxide 25 (19-29) mEq/L BUN 42 H (8-26) mg/dL Creatinine 3.25 H (0.72-1.25) mg/dL Glucose 89 (70-99) mg/dL Calcium 8.7 (8.6-10.8) mg/dL Total Bilirubin 1.9 H (0.2-1.2) mg/dL AST 44 H (5-34) Units/L ALT 22 (0-55) Units/L Alkaline Phosphatase 107 (38-126) Units/L Albumin 2.6 L (3.5-5.0) g/dL - Attending Attestation I have personally performed a face to face evaluation on this patient. I have reviewed and agree with the care plan. History and Exam by me shows: The patient was seen and evaluated. His abdomen remains nontender. I do not believe that he has acute cholecystitis. He continues to have significant mental status changes. Joe Chapman MD FACS
--- NOTE | 2017-07-24 17:55 | Electrocardiograph Report ---
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
[2017-07-25] MEDS: Ipratropium/Albuterol Neb 3 ML IH SCH ×6 (03:36→23:29)
[2017-07-25 04:30] LABS: Hematocrit 25.9 % (37.5-50.1); Hemoglobin 8.1 g/dL (12.9-16.9); Immature Granulocytes % 0.4 % (0-4); Mean Corpuscular HGB Conc 31.3 g/dL (31.6-35.5)
[2017-07-25 04:32] LABS: Basophils # 0.1 K/mcL (0.0-0.2); Basophils % 0.9 %; Eosinophils # 0.2 K/mcL (0.0-0.6); Eosinophils % 3.4 %; Immature Platelets 8.6 % (1.1-6.1); Lymphocytes # 1.3 K/mcL (0.6-4.6); Lymphocytes % 23.2 %; Mean Corpuscular Hemoglobin 32.1 pg (28.0-33.3); Mean Corpuscular Volume 102.8 fL (83.0-100.0); Mean Platelet Volume 11.9 fL (9.4-12.4); Monocytes # 0.8 K/mcL (0.0-1.3); Monocytes % 14.1 %; Neutrophils # 3.2 K/mcL (1.6-8.9); Red Blood Count 2.52 M/mcL (4.19-5.50); Red Cell Distribution Width 15.4 % (11.5-14.5)
[2017-07-25 04:44] LABS: Albumin 2.6 g/dL (3.5-5.0); Albumin/Globulin Ratio 0.7 (1.1-2.2); Bilirubin,Total 1.9 mg/dL (0.2-1.2); Calcium 8.7 mg/dL (8.6-10.8); Magnesium 1.7 mg/dL (1.6-2.6); Potassium 3.8 mEq/L (3.5-4.5); Total Protein 6.6 g/dL (6.0-8.3)
[2017-07-25 04:45] LABS: Platelet Count 61 K/mcL (140-400)
[2017-07-25] MEDS: rOPINIRole 1 MG TABLET PO SCH (08:53)
[2017-07-25] MEDS: Aspirin 81 MG TAB.CHEW PO SCH (08:53)
[2017-07-25] MEDS: Pantoprazole 40 MG VIAL IVP SCH (08:57)
[2017-07-25] MEDS: Furosemide 40 MG/4 ML VIAL IVP SCH (08:58)
[2017-07-25] MEDS: *HR* Heparin 5,000 UNIT/ML VIAL SQ SCH ×2 (08:58→19:17)
--- NOTE | 2017-07-25 09:07 | Nephrology Progress Note ---
Date of Encounter: 07/25/17 Time of Encounter: 09:05 - Assessment and Plan (1) Acute kidney injury Current Visit: Yes Status: Acute Cr today is 3.25, baseline kidney function: normal. Etiology likely secondary to lithium toxicity. Also consider ATN, hepatitis secondary to Hep C, ingestion of toxins/drugs, cardiorenal syndrome. Hep C positive CPK 35 lithium levels have remained 2.1-2.4 Ammonia: 59 Plan: hemodialysis today. re check lithium level tomorrow morning. gentle hydration with normal saline 75cc/hr for total of 1L to replete intravascular volume. will continue to monitor kidney funciton. follow renal protective strategy, avoid nephrotoxins. (2) [place] toxicity Current Visit: Yes Status: Acute as above Qualifiers: Encounter type: initial encounter Injury intent: accidental or unintentional Qualified Code(s): T56.891A - Toxic effect of other metals, accidental (unintentional), initial encounter (3) Anemia Current Visit: Yes Status: Acute iron panel, B12, folate reviewed. stool guiac pending Qualifiers: Anemia type: unspecified type Qualified Code(s): D64.9 - Anemia, unspecified (4) Encephalopathy Current Visit: Yes Status: Acute hard to tell if this is due to uremic symptoms vs underlying schizophrenia, as patient is a very poor historian and his baseline is unknown. continue to monitor. (5) Cholelithiasis Current Visit: Yes Status: Chronic per primary and surgery Qualifiers: Cholelithiasis location: gallbladder Cholecystitis presence: with cholecystitis Cholecystitis acuity: acute Biliary obstruction: without biliary obstruction Qualified Code(s): K80.00 - Calculus of gallbladder with acute cholecystitis without obstruction (6) CHF (congestive heart failure) Current Visit: Yes Status: Acute per primary Qualifiers: Congestive heart failure type: unspecified congestive heart failure type Congestive heart failure chronicity: acute Qualified Code(s): I50.9 - Heart failure, unspecified (7) Acute respiratory failure with hypoxia Current Visit: Yes Status: Acute per primary Subjective Principal diagnosis: KUSUM Interval history: 62M evaluated at bedside. he remains extremely somnolent and answers some questions. he is alert and oriented x3 but does not answer all questions properly. Objective - Vital Signs Vital signs: Vital Signs Temp Pulse Resp BP Pulse Ox 07/25/17 03:36 24 91 07/24/17 23:33 95 07/24/17 23:28 18 94 07/24/17 19:51 20 95 07/24/17 19:16 98.0 F 54 18 127/71 97 07/24/17 16:45 97.2 F L 18 112/52 07/24/17 16:15 103/49 07/24/17 16:00 117/58 07/24/17 15:45 112/52 07/24/17 15:30 104/48 07/24/17 15:15 104/49 07/24/17 15:00 106/49 07/24/17 14:45 128/52 07/24/17 14:30 115/58 07/24/17 14:15 98.4 F 18 117/57 07/24/17 11:26 98.1 F 54 18 130/62 96 07/24/17 11:00 18 97 Intake and Output 07/24/17 07/25/17 07/25/17 23:59 07:59 15:59 Output Total 2600 / 2600 600 / 600 Balance -2600 / -2600 -600 / -600 Output: Urine 0 / 0 300 / 300 Urethral (Subramanian) 300 / 300 Total Dialysis (HD) Output 2600 / 2600 Catheter 300 / 300 Other: Weight 95.6 kg Blood Glucose* 91 Hemodialysis Net Fluid Removed 2000 (mL) Patient Weight 07/25/17 23:59 Weight 95.6 kg - General Appearance General appearance: Present: well-developed, well-nourished, appears started age , obese Neck: Present: no JVD Respiratory: Present: wheezing Cardiology: Present: no murmurs, no rub, no gallops, regular rate, regular rhythm, normal S1, normal S2 Additional Comments: mild +1 bilateral pitting edema. Dialysis Vascular Access: Venous Catheter Gastrointestinal: Present: normoactive bowel sounds, no tenderness, no guarding , no organomegaly Additional Comments: abdomen distended with fluid wave. Integumentary: Present: no rash, warm and dry Additional Comments: asterexis present. Neurologic: Present: alert and oriented x3 Musculoskeletal: Present: no deformities, no erythema, no cyanosis, no clubbing - Lab 07/25/17 04:15 07/25/17 04:15 Most recent lab results Calcium 8.7 mg/dL (8.6-10.8) 07/25/17 04:15 Magnesium 1.7 mg/dL (1.6-2.6) 07/25/17 04:15 Consult Discharge Plan - Plan Referrals: Jared Connelly MD [Primary Care Provider] - (waiting on d/c plans)
[2017-07-25] MEDS ORDERED: *HR* Heparin 10,000 UNIT/10 ML VIAL IV PRN (09:29)
[2017-07-25] MEDS ORDERED: 0.9 % Sodium Chloride 250 ML IVC PRN (09:29)
[2017-07-25] MEDS ORDERED: 0.9 % Sodium Chloride 1,000 ML IVC SCH (09:45)
[2017-07-25] MEDS ORDERED: 0.9 % Sodium Chloride 1,000 ML ONE (11:20)
--- NOTE | 2017-07-25 15:31 | Internal Med Progress Note ---
Date of Encounter: 07/25/17 Time of Encounter: 15:29 - Assessment and plan (1) Acute metabolic encephalopathy Current Visit: Yes Status: Acute Assessment and plan: Mostly due to his lithium toxicity as well as chronic underline psychiatric problem Cont close monitoring Fall precautions Ammonium levels are normal (2) [place] toxicity Current Visit: Yes Status: Acute Assessment and plan: Acute vs Chronic Not clear how long he is been on lithium..pt did mention he gets his medication from PCP As per pharmacist he gets his [place] 600mg BID from PCP Dr. Connelly, had his last refill on 07/03/17 Looks more like chronic toxicity He did go for Urgent HD y/d and today His [place] levels are coming down slowly.. this morning level - 2.4 cont close monitoring his [place] and Cr levels Qualifiers: Encounter type: initial encounter Injury intent: accidental or unintentional Qualified Code(s): T56.891A - Toxic effect of other metals, accidental (unintentional), initial encounter (3) Acute kidney injury Current Visit: Yes Status: Acute Assessment and plan: Cr started trending down Non oliguric so far maintaining good urine out put Subramanian + Strict I & O (4) Cholelithiasis Current Visit: Yes Status: Chronic Assessment and plan: With out cholecystitis no abd pain No need of surgery Qualifiers: Cholelithiasis location: gallbladder Cholecystitis presence: with cholecystitis Cholecystitis acuity: acute Biliary obstruction: without biliary obstruction Qualified Code(s): K80.00 - Calculus of gallbladder with acute cholecystitis without obstruction (5) CHF (congestive heart failure) Current Visit: Yes Status: Acute Assessment and plan: His 2 D Echo showed LVEF 70%, Normal Rt and Lt ventricle Not sure his volume overload due to 3rd spacing from his hypoalbuminemia Held Lasix for now.. since he looks intra vascular volume depleted started on gentle hydration by Nephro Held Coreg and ACEI due to his low BP Qualifiers: Congestive heart failure type: unspecified congestive heart failure type Congestive heart failure chronicity: acute Qualified Code(s): I50.9 - Heart failure, unspecified (6) Pulmonary edema cardiac cause Current Visit: Yes Status: Acute Assessment and plan: improving on HD (7) Acute respiratory failure with hypoxia Current Visit: Yes Status: Acute Assessment and plan: Due to pulm edema cont O2 and bronchodilators (8) Alcohol dependence Current Visit: Yes Status: Acute Assessment and plan: does have h/o chronic alcohol dependence will cont monitoring for DT's and withdrawal symptoms Qualifiers: Substance use status: uncomplicated Qualified Code(s): F10.20 - Alcohol dependence, uncomplicated - Subjective Interval history: This is a 62 y/o M with known CHF, HTN, Known Hep C, and Schizophrenia / Bipolar on chronic lithium therapy was presented to ER with progressively worsening SOB and confusion. He seems to be in acute CHF exacerbation with pulmonary edema as well as in chronic lithium toxicity. Pt is oriented to self and place only. Looks confused and depressed. He is still somnolent. Just came back from another HD today. - Constitutional Vitals: Temp Pulse Resp BP Pulse Ox 99.4 F 54 18 110/56 93 07/25/17 13:12 07/25/17 07:40 07/25/17 13:12 07/25/17 13:12 07/25/17 07:40 General appearance: Present: A&O X 1, disheveled, no acute distress, obese - Head Head exam: Present: atraumatic, normal inspection - Neck Neck exam general surgery: Present: supple - Respiratory Respiratory exam: Present: decreased breath sounds, wheezes (mild). Absent: rales, respiratory distress, rhonchi - Cardiovascular Cardiovascular exam: Present: RRR, +S1, +S2. Absent: systolic murmur - GI/Abdominal GI/Abdominal exam: Present: distended, normal bowel sounds, soft. Absent: rebound, rigid, tenderness - Extremities Exam Extremities exam: Present: pedal edema (1+). Absent: calf tenderness, tenderness - Neurological Exam Neurological exam: Present: altered Additional comments: somnolent - Psychiatric Psychiatric exam: Present: depressed Additional comments: somnolent Internal Medicine: Result - Labs CBC & Chem 7: 07/25/17 04:15 07/25/17 04:15 Labs: Short CBC 07/25/17 Range/Units 04:15 WBC 5.5 (4.3-11.1) K/mcL Hgb 8.1 L (12.9-16.9) g/dL Hct 25.9 L (37.5-50.1) % Plt Count 61 L (140-400) K/mcL Neutrophils # 3.2 (1.6-8.9) K/mcL BMP 07/25/17 04:15 Sodium 135 L Potassium 3.8 Chloride 108 Carbon Dioxide 25 BUN 42 H Creatinine 3.25 H Glucose 89 Calcium 8.7 Liver Function 07/25/17 Range/Units 04:15 Total Bilirubin 1.9 H (0.2-1.2) mg/dL AST 44 H (5-34) Units/L ALT 22 (0-55) Units/L Alkaline Phosphatase 107 (38-126) Units/L Albumin 2.6 L (3.5-5.0) g/dL - ABG Interpretation ABG results: PT/INR, D-dimer PT 14.9 Seconds (9.4-12.1) H 07/24/17 07:57 Consult Discharge Plan - Plan Referrals: Jared Connelly MD [Primary Care Provider] - (waiting on d/c plans)
[2017-07-25 20:56] LABS: Calcium 8.9 mg/dL (8.6-10.8)
[2017-07-26] MEDS: *HR* Heparin 5,000 UNIT/ML VIAL SQ SCH ×3 (00:20→18:33)
[2017-07-26 03:26] LABS: Calcium 8.7 mg/dL (8.6-10.8); Potassium 3.9 mEq/L (3.5-4.5)
[2017-07-26] MEDS: Ipratropium/Albuterol Neb 3 ML IH SCH ×6 (04:25→23:15)
--- NOTE | 2017-07-26 07:07 | Nephrology Progress Note ---
Date of Encounter: 07/26/17 Time of Encounter: 07:05 - Assessment and Plan (1) Acute kidney injury Current Visit: Yes Status: Acute Patient with acute kidney injury that is likely multifactorial. Likely lithium toxicity and I suspect some level of volume depletion. He has oliguria that seems to be improving. I will give additional fluids today. He has been dialysis dependent. I will hold on dialysis today and monitor for further improvement. (2) Anemia Current Visit: Yes Status: Acute Iron stores, vitamin B12, and folate levels are within normal limits. Qualifiers: Anemia type: unspecified type Qualified Code(s): D64.9 - Anemia, unspecified (3) [place] toxicity Current Visit: Yes Status: Acute Responded to dialysis. Monitor lithium levels. Decision to resume lithium per the primary team. Qualifiers: Encounter type: initial encounter Injury intent: accidental or unintentional Qualified Code(s): T56.891A - Toxic effect of other metals, accidental (unintentional), initial encounter (4) Encephalopathy Current Visit: Yes Status: Acute Seems to be improving. Subjective Principal diagnosis: KUSUM Interval history: Patient seen. Initially he was asleep, but easily awakened. No complaint. He denies dyspnea. He is more appropriate than yesterday. Objective - Vital Signs Vital signs: Vital Signs Temp Pulse Resp BP Pulse Ox 07/26/17 04:40 98.6 F 54 16 120/69 95 07/26/17 04:25 18 92 07/26/17 01:06 99.9 F H 54 18 112/57 95 07/25/17 20:38 95 07/25/17 20:20 16 94 07/25/17 15:52 98.5 F 54 18 138/62 95 07/25/17 15:31 18 92 07/25/17 13:12 99.4 F 18 110/56 07/25/17 13:00 104/54 07/25/17 12:45 101/47 07/25/17 12:30 106/55 07/25/17 12:15 109/54 07/25/17 12:00 116/50 07/25/17 11:45 109/46 07/25/17 11:30 106/55 07/25/17 11:15 111/50 07/25/17 11:00 121/57 07/25/17 10:45 105/47 07/25/17 10:30 99.8 F H 20 104/46 07/25/17 08:19 16 90 07/25/17 07:40 98.6 F 54 18 116/43 93 Intake and Output 07/25/17 07/25/17 07/26/17 15:59 23:59 07:59 Intake Total 600 / 600 1800 / 1800 Output Total 1600 / 1600 200 / 200 Balance -1000 / -1000 1600 / 1600 Intake: IV Fluids 1000 / 1000 0.9 % Sodium Chloride 1,000 ML 1000 / 1000 @ 75 mls/hr IVC .[id number] [facility] Rx #:[id number] Oral 0 / 0 800 / 800 Intake, Rinseback and Flushes 600 / 600 Output: Urine 0 / 0 Total Dialysis (HD) Output 1600 / 1600 Catheter 0 / 0 200 / 200 Other: Meal Lunch npo Percent of Meal Consumed 0% Weight 95.8 kg Blood Glucose* 100 Hemodialysis Net Fluid Removed 1000 (mL) Patient Weight 07/26/17 23:59 Weight 95.8 kg - General Appearance General appearance: Present: well-developed, well-nourished EENT: Present: ATNC Neck: Present: supple Respiratory: Present: course breath sounds Cardiology: Present: edema, regular rate, regular rhythm Dialysis Vascular Access: Venous Catheter Gastrointestinal: Present: no tenderness, obese Integumentary: Present: warm and dry Additional Comments: Easily awkened from his sleep. Psychiatric: Present: mood/affect appropriate - Lab 07/25/17 04:15 07/26/17 Unknown Most recent lab results Calcium 8.7 mg/dL (8.6-10.8) 07/26/17 Unknown Magnesium 1.7 mg/dL (1.6-2.6) 07/25/17 04:15 Consult Discharge Plan - Plan Referrals: Jared Connelly MD [Primary Care Provider] - (waiting on d/c plans)
[2017-07-26] MEDS ORDERED: 0.9 % Sodium Chloride 1,000 ML IVC SCH (07:15)
[2017-07-26] MEDS: Aspirin 81 MG TAB.CHEW PO SCH (10:18)
[2017-07-26] MEDS: rOPINIRole 1 MG TABLET PO SCH (10:18)
--- NOTE | 2017-07-26 12:55 | Internal Med Progress Note ---
Date of Encounter: 07/26/17 Time of Encounter: 12:53 - Assessment and plan (1) Acute metabolic encephalopathy Current Visit: Yes Status: Acute Assessment and plan: Mostly due to his lithium toxicity as well as chronic underline psychiatric problem Cont close monitoring Fall precautions Ammonium levels are normal (2) [place] toxicity Current Visit: Yes Status: Acute Assessment and plan: Acute vs Chronic As per pharmacist he gets his [place] 600mg BID from PCP Dr. Connelly, had his last refill on 07/03/17 Looks more like chronic toxicity He had HD x 2 days Nephro is on board His [place] levels are coming down slowly today @ 1.4 cont close monitoring his [place] and Cr levels Qualifiers: Encounter type: initial encounter Injury intent: accidental or unintentional Qualified Code(s): T56.891A - Toxic effect of other metals, accidental (unintentional), initial encounter (3) Acute kidney injury Current Visit: Yes Status: Acute Assessment and plan: Cr went up little bit today - @ 2.68 Non oliguric so far maintaining good urine out put Subramanian + Strict I & O (4) Cholelithiasis Current Visit: Yes Status: Chronic Assessment and plan: With out cholecystitis no abd pain No need of surgery Qualifiers: Cholelithiasis location: gallbladder Cholecystitis presence: with cholecystitis Cholecystitis acuity: acute Biliary obstruction: without biliary obstruction Qualified Code(s): K80.00 - Calculus of gallbladder with acute cholecystitis without obstruction (5) CHF (congestive heart failure) Current Visit: Yes Status: Acute Assessment and plan: His 2 D Echo showed LVEF 70%, Normal Rt and Lt ventricle Not sure his volume overload due to 3rd spacing from his hypoalbuminemia Held Lasix for now.. since he looks intra vascular volume depleted started on gentle hydration by Nephro Held Coreg and ACEI due to his low BP Qualifiers: Congestive heart failure type: unspecified congestive heart failure type Congestive heart failure chronicity: acute Qualified Code(s): I50.9 - Heart failure, unspecified (6) Pulmonary edema cardiac cause Current Visit: Yes Status: Acute Assessment and plan: improving on HD (7) Acute respiratory failure with hypoxia Current Visit: Yes Status: Acute Assessment and plan: Due to pulm edema cont O2 and bronchodilators (8) Alcohol dependence Current Visit: Yes Status: Acute Assessment and plan: does have h/o chronic alcohol dependence will cont monitoring for DT's and withdrawal symptoms Qualifiers: Substance use status: uncomplicated Qualified Code(s): F10.20 - Alcohol dependence, uncomplicated - Subjective Interval history: This is a 62 y/o M with known CHF, HTN, Known Hep C, and Schizophrenia / Bipolar on chronic lithium therapy was presented to ER with progressively worsening SOB and confusion. He seems to be in acute CHF exacerbation with pulmonary edema as well as in chronic lithium toxicity. Pt is oriented to self and place only. Looks confused and depressed. He is still somnolent. Responding to verbal stimuli, but falling asleep right away. He still has tremors. - Constitutional Vitals: Temp Pulse Resp BP Pulse Ox 97.9 F 56 18 117/60 95 07/26/17 11:08 07/26/17 11:08 07/26/17 11:24 07/26/17 11:08 07/26/17 11:24 General appearance: Present: A&O X 1, disheveled, no acute distress, obese - Head Head exam: Present: atraumatic, normal inspection - Respiratory Respiratory exam: Present: decreased breath sounds, wheezes (mild). Absent: rales, respiratory distress, rhonchi - Cardiovascular Cardiovascular exam: Present: RRR, +S1, +S2. Absent: systolic murmur - GI/Abdominal GI/Abdominal exam: Present: normal bowel sounds, soft. Absent: rebound, rigid, tenderness - Extremities Exam Extremities exam: Present: pedal edema. Absent: calf tenderness, tenderness - Back Exam Back exam: Absent: CVA tenderness (L), CVA tenderness (R) - Neurological Exam Neurological exam: Present: altered - Psychiatric Psychiatric exam: Present: depressed Additional comments: somnolent Internal Medicine: Result - Labs CBC & Chem 7: 07/25/17 04:15 07/26/17 Unknown Labs: BMP 07/25/17 07/26/17 20:35 Unknown Sodium 136 136 Potassium 4.0 3.9 Chloride 104 106 Carbon Dioxide 27 26 BUN 31 H D 34 H Creatinine 2.55 H 2.68 H Glucose 107 H 98 Calcium 8.9 8.7 - ABG Interpretation ABG results: PT/INR, D-dimer PT 14.9 Seconds (9.4-12.1) H 07/24/17 07:57 - Impressions Impressions Retroperitoneum Ultrasound 07/25/17 16:00 IMPRESSION: 1. The kidneys are mildly echogenic, compatible with medical renal disease. 2. No hydronephrosis. 3. Subramanian catheter in place. D/ / London Jimenes MD / London Jimenes MD Interpreting Provider: London Jimenes MD Consult Discharge Plan - Plan Referrals: Jared Connelly MD [Primary Care Provider] - (waiting on d/c plans)
[2017-07-27] MEDS: *HR* Heparin 5,000 UNIT/ML VIAL SQ SCH ×3 (00:24→16:00)
[2017-07-27] MEDS: Ipratropium/Albuterol Neb 3 ML IH SCH ×6 (04:01→23:28)
[2017-07-27 06:11] LABS: Basophils % 0.3 %; Eosinophils # 0.1 K/mcL (0.0-0.6); Eosinophils % 0.6 %; Hematocrit 26.9 % (37.5-50.1); Hemoglobin 8.6 g/dL (12.9-16.9); Immature Granulocytes % 0.4 % (0-4); Lymphocytes % 8.7 %; Mean Corpuscular Hemoglobin 32.2 pg (28.0-33.3); Mean Corpuscular Volume 100.7 fL (83.0-100.0); Mean Platelet Volume 12.4 fL (9.4-12.4); Monocytes # 1.1 K/mcL (0.0-1.3); Monocytes % 10.1 %; Red Blood Count 2.67 M/mcL (4.19-5.50); Red Cell Distribution Width 15.6 % (11.5-14.5); Segmented Neutrophils % 79.9 %
[2017-07-27 06:13] LABS: Platelet Count 58 K/mcL (140-400)
[2017-07-27 06:46] LABS: Albumin 2.5 g/dL (3.5-5.0); Albumin/Globulin Ratio 0.6 (1.1-2.2); Globulin 4.3 g/dL (2.4-3.5); Magnesium 1.7 mg/dL (1.6-2.6); Potassium 4.1 mEq/L (3.5-4.5); Total Protein 6.8 g/dL (6.0-8.3)
[2017-07-27] MEDS: rOPINIRole 1 MG TABLET PO SCH (09:39)
[2017-07-27] MEDS: Aspirin 81 MG TAB.CHEW PO SCH (09:40)
--- NOTE | 2017-07-27 09:40 | Nephrology Progress Note ---
Date of Encounter: 07/27/17 Time of Encounter: 09:37 - Assessment and Plan (1) Acute kidney injury Current Visit: Yes Status: Acute Patient with acute kidney injury that is likely multifactorial. Likely lithium toxicity and I suspect some level of volume depletion. He has oliguria that seems to be improving. I will give additional fluids today. Creatinine improving. He has been dialysis dependent. Continue to hold dialysis and monitor for further improvement. Anticipate recovery. Continue to hold nephrotoxins. Adjust medications for renal function. (2) Anemia Current Visit: Yes Status: Acute Iron stores, vitamin B12, and folate levels are within normal limits. Hemoglobin stable. Qualifiers: Anemia type: unspecified type Qualified Code(s): D64.9 - Anemia, unspecified (3) [place] toxicity Current Visit: Yes Status: Acute Responded to dialysis. Monitor lithium levels. Decision to resume lithium per the primary team. Qualifiers: Encounter type: initial encounter Injury intent: accidental or unintentional Qualified Code(s): T56.891A - Toxic effect of other metals, accidental (unintentional), initial encounter (4) Leukocytosis Current Visit: Yes Status: Acute Patient with leukocytosis and fever overnight. CXR reveals pneumonia. Management per primary team. Qualifiers: Qualified Code(s): D72.829 - Elevated white blood cell count, unspecified Subjective Principal diagnosis: KUSUM Interval history: Patient seen. He is asleep. Objective - Vital Signs Vital signs: Vital Signs Temp Pulse Resp BP Pulse Ox 07/27/17 07:51 16 92 07/27/17 07:00 99.4 F 82 19 126/69 92 07/27/17 04:41 100.6 F H 57 18 125/65 94 07/27/17 04:02 18 97 07/26/17 23:28 98.2 F 54 20 116/54 97 07/26/17 23:17 18 94 07/26/17 19:57 18 91 07/26/17 19:54 97.5 F L 55 22 123/61 91 07/26/17 15:21 19 90 07/26/17 14:54 99.1 F 51 24 138/71 95 07/26/17 11:24 18 95 07/26/17 11:08 97.9 F 56 24 117/60 95 Intake and Output 07/26/17 07/27/17 07/27/17 23:59 07:59 15:59 Intake Total 200 / 200 700 / 700 240 / 240 Output Total 300 / 300 Balance 200 / 200 400 / 400 240 / 240 Intake: Oral 200 / 200 240 / 240 Free Water 700 / 700 Output: Catheter 300 / 300 Other: Meal Dinner Breakfast Percent of Meal Consumed 30% 10% Weight 97.2 kg Blood Glucose* 131 111 Patient Weight 07/27/17 23:59 Weight 97.2 kg - General Appearance General appearance: Present: well-developed, well-nourished EENT: Present: ATNC Respiratory: Present: clear Cardiology: Present: edema (1+ edema bilateral lower extremities. ), regular rate, regular rhythm Integumentary: Present: warm and dry Additional Comments: Asleep. Did not wake up during exam. Musculoskeletal: Present: no cyanosis - Lab 07/27/17 06:00 07/27/17 06:00 Most recent lab results Calcium 9.0 mg/dL (8.6-10.8) 07/27/17 06:00 Magnesium 1.7 mg/dL (1.6-2.6) 07/27/17 06:00 Consult Discharge Plan - Plan Referrals: Jared Connelly MD [Primary Care Provider] - (web request sent on 07/27/17)
[2017-07-27] MEDS ORDERED: 0.9 % Sodium Chloride 1,000 ML IVC SCH (09:45)
[2017-07-27] MEDS ORDERED: 0.9 % Sodium Chloride 500 ML IVC SCH (10:17)
--- NOTE | 2017-07-27 15:06 | Internal Med Progress Note ---
Date of Encounter: 07/27/17 Time of Encounter: 15:04 - Assessment and plan (1) Acute metabolic encephalopathy Current Visit: Yes Status: Acute Assessment and plan: Mostly due to his lithium toxicity as well as chronic underline psychiatric problem Cont close monitoring Fall precautions Ammonium levels are normal Still looks very sleepy and somnolent initial blood cx no growth so far will consult Neuro in AM also will get an EEG If neuro recommends and pt able to lie flat with out any tremors will get MRI of Brain (2) [place] toxicity Current Visit: Yes Status: Acute Assessment and plan: Acute vs Chronic As per pharmacist he gets his [place] 600mg BID from PCP Dr. Connelly, had his last refill on 07/03/17 Looks more like chronic toxicity He had HD x 2 days Nephro is on board His [place] levels are stable @ 1.5 cont close monitoring his [place] and Cr levels Qualifiers: Encounter type: initial encounter Injury intent: accidental or unintentional Qualified Code(s): T56.891A - Toxic effect of other metals, accidental (unintentional), initial encounter (3) Acute kidney injury Current Visit: Yes Status: Acute Assessment and plan: Cr trending down slowly @ 2.51 Non oliguric so far maintaining good urine out put Subramanian + Strict I & O (4) CHF (congestive heart failure) Current Visit: Yes Status: Acute Assessment and plan: His 2 D Echo showed LVEF 70%, Normal Rt and Lt ventricle Not sure his volume overload due to 3rd spacing from his hypoalbuminemia Held Lasix for now.. since he looks intra vascular volume depleted Held Coreg and ACEI due to his low BP Qualifiers: Congestive heart failure type: unspecified congestive heart failure type Congestive heart failure chronicity: acute Qualified Code(s): I50.9 - Heart failure, unspecified (5) Pulmonary edema cardiac cause Current Visit: Yes Status: Acute Assessment and plan: improving on HD (6) Acute respiratory failure with hypoxia Current Visit: Yes Status: Acute Assessment and plan: Due to pulm edema Reviewed CXR showed RLL PNA will start him on empirical abx Rocephin + Azithro cont O2 and bronchodilators (7) Pneumonia Current Visit: Yes Status: Acute Assessment and plan: mostly aspirational pneumonia placed him on empirical abx Rocephin + Azithromycin Qualifiers: Pneumonia type: aspiration pneumonia Qualified Code(s): J69.0 - Pneumonitis due to inhalation of food and vomit (8) Alcohol dependence Current Visit: Yes Status: Acute Assessment and plan: does have h/o chronic alcohol dependence will cont monitoring for DT's and withdrawal symptoms Qualifiers: Substance use status: uncomplicated Qualified Code(s): F10.20 - Alcohol dependence, uncomplicated (9) Cholelithiasis Current Visit: Yes Status: Chronic Assessment and plan: With out cholecystitis no abd pain No need of surgery Qualifiers: Cholelithiasis location: gallbladder Cholecystitis presence: with cholecystitis Cholecystitis acuity: acute Biliary obstruction: without biliary obstruction Qualified Code(s): K80.00 - Calculus of gallbladder with acute cholecystitis without obstruction - Subjective Interval history: This is a 62 y/o M with known CHF, HTN, Known Hep C, and Schizophrenia / Bipolar on chronic lithium therapy was presented to ER with progressively worsening SOB and confusion. He seems to be in acute CHF exacerbation with pulmonary edema as well as in chronic lithium toxicity. Pt is oriented to self and place only. Looks confused and depressed. However he looks more alert, awake today. He still has tremors. Had low grade fever last night with t max : 100.6 - Constitutional Vitals: Temp Pulse Resp BP Pulse Ox 98.1 F 90 16 120/66 95 07/27/17 10:57 07/27/17 10:57 07/27/17 11:25 07/27/17 10:57 07/27/17 11:25 General appearance: Present: A&O X 1, disheveled, no acute distress, obese - Head Head exam: Present: atraumatic, normal inspection - Respiratory Respiratory exam: Present: decreased breath sounds, wheezes (mild). Absent: rales, respiratory distress, rhonchi - Cardiovascular Cardiovascular exam: Present: RRR, +S1, +S2. Absent: systolic murmur - GI/Abdominal GI/Abdominal exam: Present: normal bowel sounds, soft. Absent: rebound, rigid, tenderness - Extremities Exam Extremities exam: Present: pedal edema (1+). Absent: calf tenderness, tenderness - Back Exam Back exam: Absent: CVA tenderness (L), CVA tenderness (R) - Neurological Exam Neurological exam: Present: alert, altered Additional comments: somnolent Internal Medicine: Result - Labs CBC & Chem 7: 07/27/17 06:00 07/27/17 06:00 Labs: Short CBC 07/27/17 Range/Units 06:00 WBC 11.3 H D (4.3-11.1) K/mcL Hgb 8.6 L (12.9-16.9) g/dL Hct 26.9 L (37.5-50.1) % Plt Count 58 L (140-400) K/mcL Neutrophils # 9.0 H (1.6-8.9) K/mcL BMP 07/27/17 06:00 Sodium 135 L Potassium 4.1 Chloride 105 Carbon Dioxide 23 BUN 41 H Creatinine 2.51 H Glucose 120 H Calcium 9.0 Liver Function 07/27/17 Range/Units 06:00 Total Bilirubin 2.0 H (0.2-1.2) mg/dL AST 43 H (5-34) Units/L ALT 23 (0-55) Units/L Alkaline Phosphatase 103 (38-126) Units/L Albumin 2.5 L (3.5-5.0) g/dL - ABG Interpretation ABG results: PT/INR, D-dimer PT 14.9 Seconds (9.4-12.1) H 07/24/17 07:57 - Impressions Impressions Chest X-Ray 07/27/17 10:44 IMPRESSION: Increased right basilar opacity compatible with effusion and airspace disease, atelectasis and/or pneumonia. D/ / Janet Daley Cha, MD / Janet Daley Cha, MD Interpreting Provider: Janet Daley Cha, MD Consult Discharge Plan - Plan Referrals: Jared Connelly MD [Primary Care Provider] - (web request sent on 07/27/17)
[2017-07-27] MEDS ORDERED: Furosemide 20 MG/2 ML VIAL IVP ONE (15:37)
[2017-07-27] MEDS ORDERED: cefTRIAXone 1,000 MG in Water for inj. (sterile) 10 ML IVP SCH (16:00)
[2017-07-27] MEDS: Azithromycin 500 MG in D5% in Water 250 ML IVPB SCH (16:00)
[2017-07-27 18:13] LABS: ABG Base Excess 2 mEq/L (-2 to 3); ABG HCO3 26 mEq/L (21-27); ABG Oxygen Saturation 93 % (95-98); ABG PCO2 36 mmHg (35-45); ABG PH 7.47 pH Units (7.32-7.45); ABG PO2 61 mmHg (85-104); ABG TCO2 27 mEq/L (20-26)
[2017-07-28] MEDS: *HR* Heparin 5,000 UNIT/ML VIAL SQ SCH ×3 (00:49→19:42)
[2017-07-28] MEDS: Ipratropium/Albuterol Neb 3 ML IH SCH ×6 (04:26→23:07)
[2017-07-28 04:30] LABS: Basophils % 0.3 %; Hemoglobin 8.4 g/dL (12.9-16.9); Immature Granulocytes % 0.5 % (0-4); Mean Corpuscular Volume 100.8 fL (83.0-100.0)
[2017-07-28 04:32] LABS: Eosinophils # 0.1 K/mcL (0.0-0.6); Eosinophils % 1.1 %; Hematocrit 26.1 % (37.5-50.1); Immature Platelets 8.1 % (1.1-6.1); Lymphocytes # 1.4 K/mcL (0.6-4.6); Lymphocytes % 14.7 %; Mean Corpuscular HGB Conc 32.2 g/dL (31.6-35.5); Mean Corpuscular Hemoglobin 32.4 pg (28.0-33.3); Mean Platelet Volume 12.8 fL (9.4-12.4); Monocytes % 10.7 %; Nucleated Red Blood Cells 0.2 /100 WBC (0); Red Blood Count 2.59 M/mcL (4.19-5.50); Red Cell Distribution Width 15.6 % (11.5-14.5); Segmented Neutrophils % 72.7 %
[2017-07-28 04:40] LABS: Platelet Count 60 K/mcL (140-400)
[2017-07-28 04:59] LABS: Albumin 2.2 g/dL (3.5-5.0); Albumin/Globulin Ratio 0.5 (1.1-2.2); Bilirubin,Total 1.6 mg/dL (0.2-1.2); Calcium 8.8 mg/dL (8.6-10.8); Globulin 4.2 g/dL (2.4-3.5); Potassium 3.6 mEq/L (3.5-4.5); Total Protein 6.4 g/dL (6.0-8.3)
[2017-07-28 08:37] LABS: Acinetobacter baumannii by PCR Not Detected (Not Detect); Candida albicans by PCR Not Detected (Not Detect); Candida glabrata by PCR Not Detected (Not Detect); Candida krusei by PCR Not Detected (Not Detect); Candida parapsilosis by PCR Not Detected (Not Detect); Candida tropicalis by PCR Not Detected (Not Detect); Enterococcus by PCR Not Detected (Not Detect); Escherichia coli by PCR ***DETECTED*** (Not Detect); Klebsiella oxytoca by PCR Not Detected (Not Detect); Klebsiella pneumoniae by PCR Not Detected (Not Detect); Pseudomonas aeruginosa by PCR Not Detected (Not Detect); Serratia marcescens by PCR Not Detected (Not Detect); Staphylococcus aureus by PCR Not Detected (Not Detect); Streptococcus agalactiae(B)PCR Not Detected (Not Detect); Streptococcus by PCR Not Detected (Not Detect); Streptococcus pneumoniae PCR Not Detected (Not Detect); Streptococcus pyogenes (A) PCR Not Detected (Not Detect); blaKPC Carbapenem-Resist Gene Not Detected (Not Detect); mecA Methicillin-Resist Gene Not Detected (Not Detect); vanA/B Vancomycin-Resist Genes Not Detected (Not Detect)
[2017-07-28] MEDS: rOPINIRole 1 MG TABLET PO SCH (10:28)
[2017-07-28] MEDS: Aspirin 81 MG TAB.CHEW PO SCH (10:29)
--- NOTE | 2017-07-28 15:30 | Nephrology Progress Note ---
Date of Encounter: 07/29/17 Time of Encounter: 12:30 - Assessment and Plan (1) Acute kidney injury Current Visit: Yes Status: Acute SCr improving off HD at 2.17, GFR 30 UOP good No indication for MANAGEMENT ANALYST at this time Encouraged po fluids Continue to avoid nephrotoxins if possible (2) Bacteremia due to Escherichia coli Current Visit: Yes Status: Acute Continue abx per primary team, currently at [facility] to pull temp HD catheter, discussed with primary team (3) [place] toxicity Current Visit: Yes Status: Acute Rew improving at 1.3, will follow Qualifiers: Encounter type: initial encounter Injury intent: accidental or unintentional Qualified Code(s): T56.891A - Toxic effect of other metals, accidental (unintentional), initial encounter Subjective Principal diagnosis: KUSUM Interval history: Pt seen and examined appeared lethargic but arousable. Not answering much questions as he is falling back asleep. Objective - Vital Signs Vital signs: Vital Signs Temp Pulse Resp BP Pulse Ox 07/28/17 12:00 98.2 F 71 15 106/54 97 07/28/17 11:19 18 94 07/28/17 08:26 18 95 07/28/17 07:24 98.4 F 72 18 99/61 95 07/28/17 04:26 17 93 07/28/17 03:22 97.9 F 80 17 102/49 93 07/27/17 23:28 19 92 07/27/17 23:08 100.4 F H 94 19 114/50 98 07/27/17 20:23 17 94 07/27/17 19:57 101.0 F H 96 17 130/69 94 07/27/17 16:18 18 90 07/27/17 15:36 98.4 F 93 31 131/67 93 Intake and Output 07/27/17 07/28/17 07/28/17 23:59 07:59 15:59 Intake Total 0 / 0 0 / 0 Output Total 450 / 450 450 / 450 Balance -450 / -450 -450 / -450 0 / 0 Intake: Oral 0 / 0 0 / 0 Output: Urine 0 / 0 Catheter 450 / 450 450 / 450 Other: Meal Lunch Percent of Meal Consumed 0% Weight 94.3 kg Blood Glucose* 119 103 97 Patient Weight 07/28/17 23:59 Weight 94.3 kg - General Appearance General appearance: Present: fatigue EENT: Present: ATNC, mucous membranes dry Neck: Present: no JVD, supple Additional Comments: good areation with transmitted upper airway sounds Cardiology: Present: no edema, normal S1, normal S2 Dialysis Vascular Access: Venous Catheter (temp HD) Gastrointestinal: Present: no tenderness, no guarding Integumentary: Present: warm and dry Neurologic: Present: disoriented Musculoskeletal: Present: no deformities Psychiatric: Present: mood/affect appropriate - Lab 07/29/17 06:16 07/29/17 06:16 Most recent lab results ABG pH 7.47 pH Units (7.32-7.45) H 07/27/17 18:09 ABG pCO2 36 mmHg (35-45) 07/27/17 18:09 ABG pO2 61 mmHg (85-104) L 07/27/17 18:09 ABG HCO3 26 mEq/L (21-27) 07/27/17 18:09 ABG O2 Saturation 93 % (95-98) L 07/27/17 18:09 Calcium 8.8 mg/dL (8.6-10.8) 07/28/17 04:05 Magnesium 1.7 mg/dL (1.6-2.6) 07/27/17 06:00 Consult Discharge Plan - Plan Referrals: Jared Connelly MD [Primary Care Provider] - 08/04/17 11:00 am (web request sent on 07/27/17)
--- NOTE | 2017-07-28 16:32 | Internal Med Progress Note ---
Date of Encounter: 07/28/17 Time of Encounter: 16:30 - Assessment and plan (1) Acute metabolic encephalopathy Current Visit: Yes Status: Acute Assessment and plan: Mostly due to his lithium toxicity as well as chronic underline psychiatric problem Improving Cont close monitoring Fall precautions Ammonium levels are normal initial blood cx - no growth so far however repeat blood cx from 07/27/17 4/4 positive E. Coli suspecting possible HD cath infection.. will remove HD cath today Since his mentation improving - may not need any further neurological work up will hold on neuro consult for now (2) Bacteremia due to Escherichia coli Current Visit: Yes Status: Acute Assessment and plan: His initial blood cx from 07/23/17- no growth so far however repeat blood cx from 07/27/17- 4/4 positive E. Coli suspecting possible HD cath infection.. will remove HD cath today 2 D Echo from 07/24 - No valve abnormalities If HD cath does not grow anything, need to focus on his cholelithiasis.. he does not have any abdominal pain and his LFTs trending down Will continue him on Rocephin at 2gm IV Daily Will repeat blood cx in 2 days (3) [place] toxicity Current Visit: Yes Status: Acute Assessment and plan: Acute vs Chronic As per pharmacist he gets his [place] 600mg BID from PCP Dr. Connelly, had his last refill on 07/03/17 Looks more like chronic toxicity He had HD x 2 days Nephro is on board His [place] levels started trending down @ 1.3 today cont close monitoring his [place] and Cr levels Qualifiers: Encounter type: initial encounter Injury intent: accidental or unintentional Qualified Code(s): T56.891A - Toxic effect of other metals, accidental (unintentional), initial encounter (4) Acute kidney injury Current Visit: Yes Status: Acute Assessment and plan: Cr trending down slowly @ 2.17 today Non oliguric so far maintaining good urine out put Subramanian + Strict I & O (5) CHF (congestive heart failure) Current Visit: Yes Status: Acute Assessment and plan: His 2 D Echo showed LVEF 70%, Normal Rt and Lt ventricle Not sure his volume overload due to 3rd spacing from his hypoalbuminemia Held Lasix for now.. since he looks intra vascular volume depleted Held Coreg and ACEI due to his low BP Qualifiers: Congestive heart failure type: unspecified congestive heart failure type Congestive heart failure chronicity: acute Qualified Code(s): I50.9 - Heart failure, unspecified (6) Pulmonary edema cardiac cause Current Visit: Yes Status: Acute Assessment and plan: improving (7) Acute respiratory failure with hypoxia Current Visit: Yes Status: Acute Assessment and plan: Due to pulm edema Reviewed CXR showed RLL PNA will start him on empirical abx Rocephin + Azithro cont O2 and bronchodilators (8) Pneumonia Current Visit: Yes Status: Acute Assessment and plan: mostly aspirational pneumonia placed him on empirical abx Rocephin + Azithromycin Qualifiers: Pneumonia type: aspiration pneumonia Qualified Code(s): J69.0 - Pneumonitis due to inhalation of food and vomit (9) Alcohol dependence Current Visit: Yes Status: Acute Assessment and plan: does have h/o chronic alcohol dependence will cont monitoring for DT's and withdrawal symptoms Qualifiers: Substance use status: uncomplicated Qualified Code(s): F10.20 - Alcohol dependence, uncomplicated (10) Cholelithiasis Current Visit: Yes Status: Chronic Assessment and plan: With out cholecystitis no abd pain No need of surgery Qualifiers: Cholelithiasis location: gallbladder Cholecystitis presence: with cholecystitis Cholecystitis acuity: acute Biliary obstruction: without biliary obstruction Qualified Code(s): K80.00 - Calculus of gallbladder with acute cholecystitis without obstruction - Subjective Interval history: This is a 62 y/o M with known CHF, HTN, Known Hep C, and Schizophrenia / Bipolar on chronic lithium therapy was presented to ER with progressively worsening SOB and confusion. He seems to be in acute CHF exacerbation with pulmonary edema as well as in chronic lithium toxicity. He is more alert, awake , and oriented to place, person today. He is less confused today. He still has tremors. but over all better today. - Constitutional Vitals: Temp Pulse Resp BP Pulse Ox 98.2 F 71 18 106/54 93 07/28/17 12:00 07/28/17 12:00 07/28/17 15:50 07/28/17 12:00 07/28/17 15:50 General appearance: Present: disheveled, A&O X 3, no acute distress, obese - Head Head exam: Present: atraumatic, normal inspection - Respiratory Respiratory exam: Present: decreased breath sounds, wheezes (mild). Absent: rales, respiratory distress, rhonchi - Cardiovascular Cardiovascular exam: Present: RRR, +S1, +S2. Absent: systolic murmur - GI/Abdominal GI/Abdominal exam: Present: normal bowel sounds, soft. Absent: rebound, rigid, tenderness - Extremities Exam Extremities exam: Absent: calf tenderness, pedal edema, tenderness - Back Exam Back exam: Absent: CVA tenderness (L), CVA tenderness (R) - Neurological Exam Neurological exam: Present: alert, oriented X3 - Psychiatric Psychiatric exam: Present: normal affect, normal mood Internal Medicine: Result - Labs CBC & Chem 7: 07/28/17 04:05 07/28/17 04:05 Labs: Short CBC 07/28/17 Range/Units 04:05 WBC 9.6 (4.3-11.1) K/mcL Hgb 8.4 L (12.9-16.9) g/dL Hct 26.1 L (37.5-50.1) % Plt Count 60 L (140-400) K/mcL Neutrophils # 7.0 (1.6-8.9) K/mcL BMP 07/28/17 04:05 Sodium 136 Potassium 3.6 Chloride 106 Carbon Dioxide 25 BUN 41 H Creatinine 2.17 H Glucose 106 H Calcium 8.8 Liver Function 07/28/17 Range/Units 04:05 Total Bilirubin 1.6 H (0.2-1.2) mg/dL AST 33 (5-34) Units/L ALT 18 (0-55) Units/L Alkaline Phosphatase 92 (38-126) Units/L Albumin 2.2 L (3.5-5.0) g/dL - ABG Interpretation ABG results: ABG ABG pH 7.47 pH Units (7.32-7.45) H 07/27/17 18:09 ABG pCO2 36 mmHg (35-45) 07/27/17 18:09 ABG pO2 61 mmHg (85-104) L 07/27/17 18:09 ABG O2 Saturation 93 % (95-98) L 07/27/17 18:09 PT/INR, D-dimer PT 14.9 Seconds (9.4-12.1) H 07/24/17 07:57 Consult Discharge Plan - Plan Referrals: Jared Connelly MD [Primary Care Provider] - 08/04/17 11:00 am (web request sent on 07/27/17)
[2017-07-28] MEDS: Azithromycin 500 MG in D5% in Water 250 ML IVPB SCH (19:43)
[2017-07-28] MEDS: cefTRIAXone 2,000 MG in Water for inj. (sterile) 20 ML IVP SCH (19:43)
[2017-07-28 23:44] LABS: Bilirubin,Urine Negative (Negative); Blood,Urine Negative (Negative); Clarity,Urine Turbid (Clear); Color,Urine Yellow (Yellow); Glucose,Urine (UA) Normal (Normal); Ketones,Urine Negative (Negative); Leukocyte Esterase,Urine Moderate (Negative); Nitrite,Urine Negative (Negative); Protein,Urine Negative (Neg-Trace); Specific Gravity,Urine 1.015 (1.010-1.025); Urobilinogen,Urine >=8.0 mg/dL (Normal)
[2017-07-28 23:46] LABS: Bacteria,Urine None Seen per hpf (None-Few); Hyaline Casts,Urine None Seen per lpf (None-Few); RBC,Urine TNTC per hpf (0-3); Squamous Epithelial Cell,Urine Many per lpf (None-Few); WBC,Urine 30-50 per hpf (0-3)
[2017-07-29] MEDS: Ipratropium/Albuterol Neb 3 ML IH SCH ×5 (03:33→20:06)
[2017-07-29 07:13] LABS: Immature Granulocytes % 0.3 % (0-4); Red Cell Distribution Width 15.3 % (11.5-14.5)
[2017-07-29 07:15] LABS: Basophils % 0.6 %; Eosinophils # 0.2 K/mcL (0.0-0.6); Hemoglobin 8.8 g/dL (12.9-16.9); Lymphocytes % 14.2 %; Mean Corpuscular HGB Conc 31.4 g/dL (31.6-35.5); Mean Corpuscular Hemoglobin 32.1 pg (28.0-33.3); Mean Corpuscular Volume 102.2 fL (83.0-100.0); Mean Platelet Volume 12.1 fL (9.4-12.4); Monocytes % 13.8 %; Neutrophils # 4.8 K/mcL (1.6-8.9); Red Blood Count 2.74 M/mcL (4.19-5.50); Segmented Neutrophils % 68.1 %
[2017-07-29 07:29] LABS: Platelet Count 71 K/mcL (140-400); Potassium 3.9 mEq/L (3.5-4.5)
[2017-07-29 07:30] LABS: Albumin 2.3 g/dL (3.5-5.0); Albumin/Globulin Ratio 0.5 (1.1-2.2); Bilirubin,Total 1.5 mg/dL (0.2-1.2); Calcium 8.9 mg/dL (8.6-10.8); Globulin 4.7 g/dL (2.4-3.5); Magnesium 1.6 mg/dL (1.6-2.6)
[2017-07-29] MEDS: *HR* Heparin 5,000 UNIT/ML VIAL SQ SCH ×3 (08:10→16:10)
[2017-07-29] MEDS: rOPINIRole 1 MG TABLET PO SCH (08:11)
[2017-07-29] MEDS: Aspirin 81 MG TAB.CHEW PO SCH (08:11)
--- NOTE | 2017-07-29 12:25 | Nephrology Progress Note ---
Date of Encounter: 07/29/17 Time of Encounter: 11:30 - Assessment and Plan (1) Acute kidney injury Current Visit: Yes Status: Acute SCr slightly worse today likely from decrease po fluids +/- sepsis at 2.3, GFR 30 No indication for BASE REMOVER at this time Encouraged po fluids Continue to avoid nephrotoxins if possible (2) Bacteremia due to Escherichia coli Current Visit: Yes Status: Acute Continue abx per primary team, currently at [facility] (3) [place] toxicity Current Visit: Yes Status: Acute [place] WNL at 1.1 Qualifiers: Encounter type: initial encounter Injury intent: accidental or unintentional Qualified Code(s): T56.891A - Toxic effect of other metals, accidental (unintentional), initial encounter (4) Anemia Current Visit: Yes Status: Acute Hgb low but stable in the 8.0s, etiology unclear. Will check iron levels Qualifiers: Anemia type: unspecified type Qualified Code(s): D64.9 - Anemia, unspecified Subjective Principal diagnosis: KUSUM Interval history: Pt see and examined more awake today and feels better. No new complaints Objective - Vital Signs Vital signs: Vital Signs Temp Pulse Resp BP Pulse Ox 07/29/17 11:32 98.2 F 52 17 109/61 97 07/29/17 11:21 16 98 07/29/17 08:22 96 07/29/17 08:04 97.8 F 58 18 135/81 96 07/29/17 07:39 16 93 07/29/17 05:12 98.9 F 72 17 118/72 92 07/29/17 03:33 18 94 07/28/17 23:39 98.2 F 61 18 114/60 93 07/28/17 23:07 18 93 07/28/17 21:05 98.0 F 101 18 122/71 96 07/28/17 20:29 18 99 07/28/17 16:42 98.5 F 95 17 122/69 97 07/28/17 15:50 18 93 Intake and Output 07/28/17 07/29/17 07/29/17 23:59 07:59 15:59 Intake Total 1510 / 1510 50 / 50 Output Total 700 / 700 600 / 600 0 / 0 Balance -700 / -700 910 / 910 50 / 50 Intake: IV Fluids 1510 / 1510 Oral 50 / 50 Output: Urine 0 / 0 Catheter 700 / 700 600 / 600 Other: Weight 94.5 kg Blood Glucose* 133 105 109 Patient Weight 07/29/17 23:59 Weight 94.5 kg - General Appearance Exam: NAD EENT: Present: ATNC, mucous membranes dry Neck: Present: no JVD, supple Respiratory: Present: clear (ant bilat) Cardiology: Present: no edema, normal S1, normal S2 Gastrointestinal: Present: no tenderness, no guarding Integumentary: Present: warm and dry Neurologic: Present: no focal deficit Musculoskeletal: Present: no deformities Psychiatric: Present: mood/affect appropriate - Lab 07/29/17 06:16 07/29/17 06:16 Most recent lab results ABG pH 7.47 pH Units (7.32-7.45) H 07/27/17 18:09 ABG pCO2 36 mmHg (35-45) 07/27/17 18:09 ABG pO2 61 mmHg (85-104) L 07/27/17 18:09 ABG HCO3 26 mEq/L (21-27) 07/27/17 18:09 ABG O2 Saturation 93 % (95-98) L 07/27/17 18:09 Calcium 8.9 mg/dL (8.6-10.8) 07/29/17 06:16 Magnesium 1.6 mg/dL (1.6-2.6) 07/29/17 06:16 Consult Discharge Plan - Plan Referrals: Jared Connelly MD [Primary Care Provider] - 08/04/17 11:00 am (web request sent on 07/27/17)
--- NOTE | 2017-07-29 15:34 | Internal Med Progress Note ---
<Columba Sanches - Last Filed: 07/29/17 16:55> Date of Encounter: 07/29/17 Time of Encounter: 09:00 - Assessment and plan (1) Bacteremia due to Escherichia coli Current Visit: Yes Status: Acute Assessment and plan: -HD catheter suspected as possible source -afebrile, WBC count improving -awaiting sensitivity for 07.27.17 blood cultures -antibiotics day 3, PO azithromycin and IV ceftriaxone -once 1st set of blood cultures returns negative, plan to continue abx for 12 days -will repeat blood cultures tomorrow (2) Acute kidney injury Current Visit: Yes Status: Acute Assessment and plan: -slightly worsened creatinine today at 2.23, was 2.17 yesterday -urine output 1150 mL over last 24 hours -continue to monitor I's & O's -will avoid nephrotoxic medications when possible -nephrology consulted, recommendations appreciated (3) CHF (congestive heart failure) Current Visit: Yes Status: Acute Assessment and plan: -07.24.17 Echo shows LVEF 70%, normal LV and RV, moderate dilation LA, mild TR, mild pulmonary HTN -holding lasix Qualifiers: Congestive heart failure type: unspecified congestive heart failure type Congestive heart failure chronicity: acute Qualified Code(s): I50.9 - Heart failure, unspecified (4) Aspiration pneumonia Current Visit: Yes Status: Acute Assessment and plan: -07.27.17 CXR showed increased Rt basilar opacity compatible with pneumonia, effusion -azithromycin 500mg PO Q24H and 2g IVP ceftriaxone Q24H, day 3 -WBC count trending down, previously 11.3, then 9.6, and 7.1 today -afebrile, no tachycardia, not hypotensive Qualifiers: Laterality: unspecified laterality Lung location: unspecified part of lung Qualified Code(s): J69.0 - Pneumonitis due to inhalation of food and vomit (5) Acute respiratory failure with hypoxia Current Visit: Yes Status: Acute Assessment and plan: -likely due to pulmonary edema from CHF -CXR findings suggestive of PNA as mentioned above -currently on empiric azithromycin and rocephin -will wean down O2 and continue albuterol, duonebs (6) [place] toxicity Current Visit: Yes Status: Acute Assessment and plan: -patient's acute toxicity likely etiology for KUSUM -required HD for 2 days -lithium continues trending down, today 1.1 -Cr slightly worse today @ 2.23 -nephrology consulted Qualifiers: Encounter type: initial encounter Injury intent: accidental or unintentional Qualified Code(s): T56.891A - Toxic effect of other metals, accidental (unintentional), initial encounter (7) Encephalopathy Current Visit: Yes Status: Acute Assessment and plan: -patient is oriented to person, place, and time today -etiology likely related to lithium toxicity, however also has underlying schizophrenia and bipolar disorder -will continue to monitor for acute changes (8) Alcohol dependence Current Visit: Yes Status: Acute Assessment and plan: -CIWA monitoring Qualifiers: Substance use status: uncomplicated Qualified Code(s): F10.20 - Alcohol dependence, uncomplicated (9) Cholelithiasis Current Visit: Yes Status: Chronic Assessment and plan: -07.23.17 CT abd/pelvis showed distended gallbladder with stones -no abdominal pain, benign abdominal exam -no urgent surgical intervention indicated as per surgery, surgery signed off Qualifiers: Cholelithiasis location: gallbladder Cholecystitis presence: with cholecystitis Cholecystitis acuity: acute Biliary obstruction: without biliary obstruction Qualified Code(s): K80.00 - Calculus of gallbladder with acute cholecystitis without obstruction - Subjective Interval history: Seen and examined this morning at bedside. Patient resting in bed. Patient is alert to self, place, and time. Patient feeling ok this morning. Denies chest pain, dyspnea, abdominal pain, nausea, vomiting. - Constitutional Vitals: Temp Pulse Resp BP Pulse Ox 97.9 F 54 18 108/64 99 07/29/17 14:46 07/29/17 14:46 07/29/17 14:46 07/29/17 14:46 07/29/17 14:46 General appearance: Present: disheveled, A&O X 3, no acute distress, obese Exam: Gen.: Vitals noted. No acute distress. HEENT: EOMI; Normocephalic and atraumatic Neck: Supple. Cardiac: RRR, no murmur, +S1/S2 Pulmonary: mild wheezing, no rhonchi, normal respiratory effort, diminished airflow at bases Abdomen: soft, nontender, BS noted Extremities: no BLE edema, pedal pulses equal bilaterally Neuro: AAOx3, moves all extremities, no focal deficits, no speech deficit Psych: Appropriate behavior, cooperative, answers questions appropriately Internal Medicine: Result - Labs CBC & Chem 7: 07/29/17 06:16 07/29/17 06:16 Labs: Short CBC 07/29/17 Range/Units 06:16 WBC 7.1 (4.3-11.1) K/mcL Hgb 8.8 L (12.9-16.9) g/dL Hct 28.0 L (37.5-50.1) % Plt Count 71 L (140-400) K/mcL Neutrophils # 4.8 (1.6-8.9) K/mcL BMP 07/29/17 06:16 Sodium 133 L Potassium 3.9 Chloride 103 Carbon Dioxide 22 BUN 44 H Creatinine 2.23 H Glucose 105 H Calcium 8.9 Liver Function 07/29/17 Range/Units 06:16 Total Bilirubin 1.5 H (0.2-1.2) mg/dL AST 51 H (5-34) Units/L ALT 22 (0-55) Units/L Alkaline Phosphatase 95 (38-126) Units/L Albumin 2.3 L (3.5-5.0) g/dL Urine 07/28/17 Range/Units 23:30 Urine Color Yellow (Yellow) Urine Clarity Turbid A (Clear) Urine pH 7.0 (5.0-8.0) pH Units Ur Specific [place] 1.015 (1.010-1.025) Urine Protein Negative (Neg-Trace) mg/dL Urine Glucose (UA) Normal (Normal) mg/dL - ABG Interpretation ABG results: ABG ABG pH 7.47 pH Units (7.32-7.45) H 07/27/17 18:09 ABG pCO2 36 mmHg (35-45) 07/27/17 18:09 ABG pO2 61 mmHg (85-104) L 07/27/17 18:09 ABG O2 Saturation 93 % (95-98) L 07/27/17 18:09 PT/INR, D-dimer PT 14.9 Seconds (9.4-12.1) H 07/24/17 07:57 Consult Discharge Plan - Plan Referrals: Jared Connelly MD [Primary Care Provider] - 08/04/17 11:00 am (web request sent on 07/27/17) <Deepika Morales - Last Filed: 07/29/17 17:03> Date of Encounter: 07/29/17 Time of Encounter: 12:50 - Constitutional Vitals: Temp Pulse Resp BP Pulse Ox 97.9 F 54 16 108/64 98 07/29/17 14:46 07/29/17 14:46 07/29/17 15:49 07/29/17 14:46 07/29/17 15:49 Internal Medicine: Result - Labs CBC & Chem 7: 07/29/17 06:16 07/29/17 06:16 Labs: Short CBC 07/29/17 Range/Units 06:16 WBC 7.1 (4.3-11.1) K/mcL Hgb 8.8 L (12.9-16.9) g/dL Hct 28.0 L (37.5-50.1) % Plt Count 71 L (140-400) K/mcL Neutrophils # 4.8 (1.6-8.9) K/mcL BMP 07/29/17 06:16 Sodium 133 L Potassium 3.9 Chloride 103 Carbon Dioxide 22 BUN 44 H Creatinine 2.23 H Glucose 105 H Calcium 8.9 Liver Function 07/29/17 Range/Units 06:16 Total Bilirubin 1.5 H (0.2-1.2) mg/dL AST 51 H (5-34) Units/L ALT 22 (0-55) Units/L Alkaline Phosphatase 95 (38-126) Units/L Albumin 2.3 L (3.5-5.0) g/dL Urine 07/28/17 Range/Units 23:30 Urine Color Yellow (Yellow) Urine Clarity Turbid A (Clear) Urine pH 7.0 (5.0-8.0) pH Units Ur Specific [place] 1.015 (1.010-1.025) Urine Protein Negative (Neg-Trace) mg/dL Urine Glucose (UA) Normal (Normal) mg/dL - ABG Interpretation ABG results: ABG ABG pH 7.47 pH Units (7.32-7.45) H 07/27/17 18:09 ABG pCO2 36 mmHg (35-45) 07/27/17 18:09 ABG pO2 61 mmHg (85-104) L 07/27/17 18:09 ABG O2 Saturation 93 % (95-98) L 07/27/17 18:09 PT/INR, D-dimer PT 14.9 Seconds (9.4-12.1) H 07/24/17 07:57 - Attending Attestation Patient is a 62y/o male admitted for KUSUM secondary to [place] 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 Noted to have E.coli bactermia after placement of HD cath. [place] levels have been normalized , renal function improved since admission. HD cath has been removed. Pt awake and alert. Nephrology on board. Awaiting results of repeat blood cultures. Continue IV abx Pt will need abx for 14 days after the first negative blood culture Clinically improving Hx of CHF-no clinical signs of exacerbation, despite holding Lasix, Coreg, and ACEin Will continue abx for PNA Patient independently seen and examined at bedside. Case discussed with resident physician Columba Mansfield, I agree with her documented findings, assessment, and plan, except as listed above.
[2017-07-29] MEDS: cefTRIAXone 2,000 MG in Water for inj. (sterile) 20 ML IVP SCH (16:09)
[2017-07-29] MEDS: Azithromycin 250 MG TABLET PO SCH (16:10)
[2017-07-30] MEDS: Ipratropium/Albuterol Neb 3 ML IH SCH ×7 (00:03→23:27)
[2017-07-30] MEDS: *HR* Heparin 5,000 UNIT/ML VIAL SQ SCH ×4 (00:23→23:28)
[2017-07-30] MEDS ORDERED: Melatonin 3 MG TABLET PO ONE (02:37)
[2017-07-30 05:53] LABS: Hemoglobin 8.5 g/dL (12.9-16.9); Mean Platelet Volume 12.2 fL (9.4-12.4)
[2017-07-30 05:55] LABS: Basophils # 0.1 K/mcL (0.0-0.2); Eosinophils # 0.2 K/mcL (0.0-0.6); Eosinophils % 4.2 %; Hematocrit 26.4 % (37.5-50.1); Immature Granulocytes % 0.4 % (0-4); Immature Platelets 9.2 % (1.1-6.1); Lymphocytes % 14.9 %; Mean Corpuscular HGB Conc 32.2 g/dL (31.6-35.5); Mean Corpuscular Hemoglobin 32.4 pg (28.0-33.3); Mean Corpuscular Volume 100.8 fL (83.0-100.0); Monocytes # 0.5 K/mcL (0.0-1.3); Monocytes % 10.6 %; Red Blood Count 2.62 M/mcL (4.19-5.50); Segmented Neutrophils % 68.9 %
[2017-07-30 06:00] LABS: Lymphocytes # 0.8 K/mcL (0.6-4.6); Neutrophils # 3.5 K/mcL (1.6-8.9); Platelet Count 71 K/mcL (140-400)
[2017-07-30 06:09] LABS: Calcium 8.9 mg/dL (8.6-10.8); Magnesium 1.7 mg/dL (1.6-2.6); Phosphorous 3.3 mg/dL (2.3-4.7); Potassium 3.7 mEq/L (3.5-4.5)
[2017-07-30] MEDS: rOPINIRole 1 MG TABLET PO SCH (08:29)
[2017-07-30] MEDS: Aspirin 81 MG TAB.CHEW PO SCH (08:29)
[2017-07-30 08:39] LABS: Albumin 2.4 g/dL (3.5-5.0); Albumin/Globulin Ratio 0.5 (1.1-2.2); Bilirubin,Direct 0.6 mg/dL (0.0-0.5); Bilirubin,Indirect 0.5 mg/dL (0.0-1.2); Bilirubin,Total 1.1 mg/dL (0.2-1.2); Globulin 4.5 g/dL (2.4-3.5); Total Protein 6.9 g/dL (6.0-8.3)
--- NOTE | 2017-07-30 15:36 | Internal Med Progress Note ---
<Oziel Field - Last Filed: 07/30/17 15:48> Date of Encounter: 07/30/17 Time of Encounter: 10:15 - Assessment and plan (1) Bacteremia due to Escherichia coli Current Visit: Yes Status: Acute Assessment and plan: Blood culture on 07/27/17: Showed Escherichia coli -Serology on 07/27/17: Enterobacter and Escherichia coli -07/28/17 and 07/29/17 blood cultures were negative. -White count was elevated at 11.3 on 07/27/17. White count today is 5.0. -HD catheter was removed; suspected source of infection. -IV ceftriaxone. Patient will be on 14 day course of antibiotics from first negative blood culture. (2) Altered mental status, unspecified Current Visit: Yes Status: Acute Assessment and plan: Patient became agitated last night. Appear to be hallucinating. -Sitter at bedside. -Attempted to get up out of bed early in the morning; got his leg caught between the railing on the side of the bed. -Unknown etiology. Patient has a known psych history. Plan: -Haldol 2 mg Q8 PO PRN. -Hepatic panel has been ordered. -Repeat lithium level. -PT/OT consult has been ordered. Qualifiers: Qualified Code(s): R41.82 - Altered mental status, unspecified (3) Acute kidney injury Current Visit: Yes Status: Acute Assessment and plan: Creatinine this morning was 2.71, up from 2.23 yesterday. -Urine output appropriate -Monitor I's & O's -Avoid nephrotoxic medications -Nephrology consulted; COAL CAGER not indicated at this time per nephrology. (4) Anemia Current Visit: Yes Status: Chronic Assessment and plan: Patient's hemoglobin this morning was 8.5. Qualifiers: Anemia type: unspecified type Qualified Code(s): D64.9 - Anemia, unspecified (5) [place] toxicity Current Visit: Yes Status: Acute Assessment and plan: Patient's acute toxicity likely etiology for KUSUM -[place] continues trending down -Cr worse today at 2.71. -Nephrology on board Qualifiers: Encounter type: initial encounter Injury intent: accidental or unintentional Qualified Code(s): T56.891A - Toxic effect of other metals, accidental (unintentional), initial encounter (6) Cholelithiasis Current Visit: Yes Status: Chronic Assessment and plan: -07.23.17 CT abd/pelvis showed distended gallbladder with stones -no abdominal pain, benign abdominal exam -no urgent surgical intervention indicated as per surgery, surgery signed off Qualifiers: Cholelithiasis location: gallbladder Cholecystitis presence: with cholecystitis Cholecystitis acuity: acute Biliary obstruction: without biliary obstruction Qualified Code(s): K80.00 - Calculus of gallbladder with acute cholecystitis without obstruction (7) CHF (congestive heart failure) Current Visit: Yes Status: Acute Assessment and plan: -07.24.17 Echo shows LVEF 70%, normal LV and RV, moderate dilation LA, mild TR, mild pulmonary HTN -holding lasix Qualifiers: Congestive heart failure type: unspecified congestive heart failure type Congestive heart failure chronicity: acute Qualified Code(s): I50.9 - Heart failure, unspecified - Subjective Interval history: Patient was seen and examined at bedside this morning. Patient is asleep, unable to be aroused. Sitter is at bedside. She reports that last night, patient had an episode where he became agitated; possibly experiencing hallucinations. Patient was attempting to get up out of bed; had his leg caught in between the railing on the side of the bed. Was also attempted to pull out his urinary catheter. - Constitutional Vitals: Temp Pulse Resp BP Pulse Ox 97.3 F L 56 17 119/67 98 07/30/17 11:31 07/30/17 11:31 07/30/17 11:31 07/30/17 11:31 07/30/17 11:31 Exam: Patient asleep; unable to be awakened. - Respiratory Respiratory exam: Present: CTAB. Absent: accessory muscle use, rales, rhonchi, wheezes - Cardiovascular Cardiovascular exam: Present: RRR, +S1, +S2. Absent: diastolic murmur, gallop, rubs, systolic murmur - Psychiatric Psychiatric exam: Present: agitated Internal Medicine: Result - Labs CBC & Chem 7: 07/30/17 05:05 07/30/17 05:05 Labs: Short CBC 07/30/17 Range/Units 05:05 WBC 5.0 (4.3-11.1) K/mcL Hgb 8.5 L (12.9-16.9) g/dL Hct 26.4 L (37.5-50.1) % Plt Count 71 L (140-400) K/mcL Neutrophils # 3.5 (1.6-8.9) K/mcL BMP 07/30/17 05:05 Sodium 133 L Potassium 3.7 Chloride 102 Carbon Dioxide 22 BUN 55 H Creatinine 2.71 H Glucose 95 Calcium 8.9 Liver Function 07/30/17 Range/Units 05:05 Total Bilirubin 1.1 (0.2-1.2) mg/dL Direct Bilirubin 0.6 H (0.0-0.5) mg/dL AST 57 H (5-34) Units/L ALT 23 (0-55) Units/L Alkaline Phosphatase 83 (38-126) Units/L Albumin 2.4 L (3.5-5.0) g/dL - ABG Interpretation ABG results: ABG ABG pH 7.47 pH Units (7.32-7.45) H 07/27/17 18:09 ABG pCO2 36 mmHg (35-45) 07/27/17 18:09 ABG pO2 61 mmHg (85-104) L 07/27/17 18:09 ABG O2 Saturation 93 % (95-98) L 07/27/17 18:09 PT/INR, D-dimer PT 14.9 Seconds (9.4-12.1) H 07/24/17 07:57 Consult Discharge Plan - Plan Referrals: Jared Connelly MD [Primary Care Provider] - 08/04/17 11:00 am (web request sent on 07/27/17) <Deepika Morales - Last Filed: 07/30/17 16:10> Date of Encounter: 07/30/17 - Constitutional Vitals: Temp Pulse Resp BP Pulse Ox 97.3 F L 56 17 119/67 98 07/30/17 11:31 07/30/17 11:31 07/30/17 11:31 07/30/17 11:31 07/30/17 11:31 Internal Medicine: Result - Labs CBC & Chem 7: 07/30/17 05:05 07/30/17 05:05 Labs: Short CBC 07/30/17 Range/Units 05:05 WBC 5.0 (4.3-11.1) K/mcL Hgb 8.5 L (12.9-16.9) g/dL Hct 26.4 L (37.5-50.1) % Plt Count 71 L (140-400) K/mcL Neutrophils # 3.5 (1.6-8.9) K/mcL BMP 07/30/17 05:05 Sodium 133 L Potassium 3.7 Chloride 102 Carbon Dioxide 22 BUN 55 H Creatinine 2.71 H Glucose 95 Calcium 8.9 Liver Function 07/30/17 Range/Units 05:05 Total Bilirubin 1.1 (0.2-1.2) mg/dL Direct Bilirubin 0.6 H (0.0-0.5) mg/dL AST 57 H (5-34) Units/L ALT 23 (0-55) Units/L Alkaline Phosphatase 83 (38-126) Units/L Albumin 2.4 L (3.5-5.0) g/dL - ABG Interpretation ABG results: ABG ABG pH 7.47 pH Units (7.32-7.45) H 07/27/17 18:09 ABG pCO2 36 mmHg (35-45) 07/27/17 18:09 ABG pO2 61 mmHg (85-104) L 07/27/17 18:09 ABG O2 Saturation 93 % (95-98) L 07/27/17 18:09 PT/INR, D-dimer PT 14.9 Seconds (9.4-12.1) H 07/24/17 07:57 - Attending Attestation Patient is a 62y/o male admitted for KUSUM secondary to lithium toxicity, CHF exacerbation, Bacteremia, PNA Pt noted to be agitated this morning and confused Bedside sitter in place, and patient more calm however remains confused and somnolent. Renal function worsened from previous day. Nephrology on board. Will attempt a fluid challenge, started on 0.9% NS at 75cc/hr x 2L. If renal function continues to worsen, with worsening mental status, patient may require COAL CAGER. AMS secondary to unclear etiology (metabolic vs. underlying psych illness exacerbation). Will continue to closely monitor Blood culture positive for E.coli blevins sensitive, repeat blood cultures negative (prelim results). Will switch patient to PO abx for a total of 14 days from the first negative blood culture (first day: 07/28/17) Case discussed with resident physician, Oziel Field, I agree with the documented findings, assessment, and plan except as listed above.
--- NOTE | 2017-07-30 16:07 | Nephrology Progress Note ---
Date of Encounter: 07/30/17 Time of Encounter: 12:15 - Assessment and Plan (1) Acute kidney injury Current Visit: Yes Status: Acute SCr worsening at 2.71, GFR 24 UOP decreasing as well, recommend IVF today No indication for CURAM DEVELOPER at this time but will reassess in am Encouraged po fluids Continue to avoid nephrotoxins if possible (2) Bacteremia due to Escherichia coli Current Visit: Yes Status: Acute Continue abx per primary team, currently at [facility] (3) [place] toxicity Current Visit: Yes Status: Acute [place] normalized at 1.1 Qualifiers: Qualified Code(s): T56.891A - Toxic effect of other metals, accidental ( unintentional), initial encounter Subjective Principal diagnosis: KUSUM Interval history: Pt seen and examined appeared lethargic but arousable. Objective - Vital Signs Vital signs: Vital Signs Temp Pulse Resp BP Pulse Ox 07/30/17 11:31 97.3 F L 56 17 119/67 98 07/30/17 11:25 16 94 07/30/17 07:53 16 96 07/30/17 07:36 98.0 F 66 17 137/67 92 07/30/17 05:26 98.3 F 61 15 128/68 92 07/30/17 03:39 17 90 07/30/17 00:03 17 87 07/29/17 23:15 97.7 F 57 15 121/72 96 07/29/17 20:06 17 92 07/29/17 19:01 97.9 F 56 16 118/71 95 Intake and Output 07/30/17 07/30/17 07/30/17 07:59 15:59 23:59 Intake Total 420 / 420 Output Total 650 / 650 200 / 200 Balance -650 / -650 220 / 220 Intake: Oral 420 / 420 Output: Catheter 650 / 650 200 / 200 Other: Meal Lunch Percent of Meal Consumed 0% Blood Glucose* 96 99 - Lab 07/30/17 05:05 07/30/17 05:05 Most recent lab results ABG pH 7.47 pH Units (7.32-7.45) H 07/27/17 18:09 ABG pCO2 36 mmHg (35-45) 07/27/17 18:09 ABG pO2 61 mmHg (85-104) L 07/27/17 18:09 ABG HCO3 26 mEq/L (21-27) 07/27/17 18:09 ABG O2 Saturation 93 % (95-98) L 07/27/17 18:09 Calcium 8.9 mg/dL (8.6-10.8) 07/30/17 05:05 Phosphorus 3.3 mg/dL (2.3-4.7) 07/30/17 05:05 Magnesium 1.7 mg/dL (1.6-2.6) 07/30/17 05:05 Consult Discharge Plan - Plan Referrals: Jared Connelly MD [Primary Care Provider] - 08/04/17 11:00 am (web request sent on 07/27/17)
[2017-07-30] MEDS: cefTRIAXone 2,000 MG in Water for inj. (sterile) 20 ML IVP SCH (17:10)
[2017-07-30] MEDS: 0.9 % Sodium Chloride 1,000 ML IVC SCH (17:12)
[2017-07-30] MEDS: Azithromycin 250 MG TABLET PO SCH (17:12)
[2017-07-31 04:08] LABS: Immature Granulocytes % 0.4 % (0-4)
[2017-07-31 04:10] LABS: Basophils % 0.5 %; Eosinophils # 0.2 K/mcL (0.0-0.6); Eosinophils % 3.3 %; Hematocrit 24.6 % (37.5-50.1); Hemoglobin 8.1 g/dL (12.9-16.9); Immature Platelets 7.3 % (1.1-6.1); Lymphocytes % 18.8 %; Mean Corpuscular HGB Conc 32.9 g/dL (31.6-35.5); Mean Corpuscular Hemoglobin 32.5 pg (28.0-33.3); Mean Corpuscular Volume 98.8 fL (83.0-100.0); Mean Platelet Volume 12.1 fL (9.4-12.4); Monocytes # 0.7 K/mcL (0.0-1.3); Monocytes % 13.3 %; Neutrophils # 3.5 K/mcL (1.6-8.9); Red Blood Count 2.49 M/mcL (4.19-5.50); Segmented Neutrophils % 63.7 %
[2017-07-31 04:16] LABS: Platelet Count 65 K/mcL (140-400)
[2017-07-31 04:23] LABS: Calcium 8.9 mg/dL (8.6-10.8); Phosphorous 4.1 mg/dL (2.3-4.7); Potassium 3.5 mEq/L (3.5-4.5)
[2017-07-31] MEDS: Ipratropium/Albuterol Neb 3 ML IH SCH ×6 (04:52→23:13)
[2017-07-31] MEDS: 0.9 % Sodium Chloride 1,000 ML IVC SCH (05:49)
[2017-07-31] MEDS: Aspirin 81 MG TAB.CHEW PO SCH (09:24)
[2017-07-31] MEDS: *HR* Heparin 5,000 UNIT/ML VIAL SQ SCH ×2 (09:25→15:48)
[2017-07-31] MEDS: rOPINIRole 1 MG TABLET PO SCH (09:26)
--- NOTE | 2017-07-31 09:51 | Internal Med Progress Note ---
<Columba Sanches - Last Filed: 07/31/17 14:43> Date of Encounter: 07/31/17 Time of Encounter: 09:50 - Assessment and plan (1) Bacteremia due to Escherichia coli Current Visit: Yes Status: Acute Assessment and plan: Blood culture on 07/27/17: Showed Escherichia coli -Serology on 07/27/17: Enterobacter and Escherichia coli -07/28/17 and 07/29/17 blood cultures were negative. -White count was elevated at 11.3 on 07/27/17. White count today is 5.0. -HD catheter was removed; suspected source of infection. -IV ceftriaxone. Patient will be on 14 day course of antibiotics from first negative blood culture. (2) Acute kidney injury Current Visit: Yes Status: Acute Assessment and plan: Creatinine this morning was 2.71, up from 2.23 yesterday. -Urine output appropriate -Monitor I's & O's -Avoid nephrotoxic medications -Nephrology consulted; HEEL SPRAYER FIRST not indicated at this time per nephrology. (3) CHF (congestive heart failure) Current Visit: Yes Status: Acute Assessment and plan: -07.24.17 Echo shows LVEF 70%, normal LV and RV, moderate dilation LA, mild TR, mild pulmonary HTN -holding lasix Qualifiers: Congestive heart failure type: unspecified congestive heart failure type Congestive heart failure chronicity: acute Qualified Code(s): I50.9 - Heart failure, unspecified (4) Aspiration pneumonia Current Visit: Yes Status: Acute Assessment and plan: -07.27.17 CXR showed increased Rt basilar opacity compatible with pneumonia, effusion -azithromycin 500mg PO Q24H and 2g IVP ceftriaxone Q24H, day 3 -WBC count trending down, previously 11.3, then 9.6, and 7.1 today -afebrile, no tachycardia, not hypotensive Qualifiers: Laterality: unspecified laterality Lung location: unspecified part of lung (5) Acute respiratory failure with hypoxia Current Visit: Yes Status: Acute Assessment and plan: -likely due to pulmonary edema from CHF -CXR findings suggestive of PNA as mentioned above -currently on empiric azithromycin and rocephin -will wean down O2 and continue albuterol, duonebs (6) [place] toxicity Current Visit: Yes Status: Acute Assessment and plan: Patient's acute toxicity likely etiology for KUSUM -[place] continues trending down -Cr worse today at 2.71. -Nephrology on board Qualifiers: Encounter type: initial encounter Injury intent: accidental or unintentional Qualified Code(s): T56.891A - Toxic effect of other metals, accidental (unintentional), initial encounter (7) Encephalopathy Current Visit: Yes Status: Acute Assessment and plan: -patient is oriented to person, place, and time today -etiology likely related to lithium toxicity, however also has underlying schizophrenia and bipolar disorder -will continue to monitor for acute changes (8) Alcohol dependence Current Visit: Yes Status: Acute Assessment and plan: -CIWA monitoring Qualifiers: Substance use status: uncomplicated Qualified Code(s): F10.20 - Alcohol dependence, uncomplicated (9) Cholelithiasis Current Visit: Yes Status: Chronic Assessment and plan: -07.23.17 CT abd/pelvis showed distended gallbladder with stones -no abdominal pain, benign abdominal exam -no urgent surgical intervention indicated as per surgery, surgery signed off Qualifiers: Cholelithiasis location: gallbladder Cholecystitis presence: with cholecystitis Cholecystitis acuity: acute Biliary obstruction: without biliary obstruction Qualified Code(s): K80.00 - Calculus of gallbladder with acute cholecystitis without obstruction - Subjective Interval history: Seen and examined this morning at bedside. Patient resting in bed. Patient is alert to self, place, and time. Patient feeling ok this morning. Denies chest pain, dyspnea, abdominal pain, nausea, vomiting. - Constitutional Vitals: Temp Pulse Resp BP Pulse Ox 97.6 F 52 18 136/74 97 07/31/17 07:06 07/31/17 07:06 07/31/17 07:49 07/31/17 07:06 07/31/17 07:49 General appearance: Present: disheveled, A&O X 3, no acute distress, obese Internal Medicine: Result - Labs CBC & Chem 7: 07/31/17 03:41 07/31/17 03:41 Labs: Short CBC 07/31/17 Range/Units 03:41 WBC 5.5 (4.3-11.1) K/mcL Hgb 8.1 L (12.9-16.9) g/dL Hct 24.6 L (37.5-50.1) % Plt Count 65 L (140-400) K/mcL Neutrophils # 3.5 (1.6-8.9) K/mcL [facility] 07/31/17 03:41 Sodium 134 L Potassium 3.5 Chloride 104 Carbon Dioxide 23 BUN 57 H Creatinine 2.47 H Glucose 90 Calcium 8.9 - ABG Interpretation ABG results: ABG ABG pH 7.47 pH Units (7.32-7.45) H 07/27/17 18:09 ABG pCO2 36 mmHg (35-45) 07/27/17 18:09 ABG pO2 61 mmHg (85-104) L 07/27/17 18:09 ABG O2 Saturation 93 % (95-98) L 07/27/17 18:09 PT/INR, D-dimer PT 14.9 Seconds (9.4-12.1) H 07/24/17 07:57 Consult Discharge Plan - Plan Referrals: Jared Connelly MD [Primary Care Provider] - 08/04/17 11:00 am (web request sent on 07/27/17) <Dawood Buckley - Last Filed: 07/31/17 15:01> Date of Encounter: 07/31/17 - Constitutional Vitals: Temp Pulse Resp BP Pulse Ox 98 F 53 18 130/69 95 07/31/17 10:39 07/31/17 10:39 07/31/17 11:14 07/31/17 10:39 07/31/17 11:14 Internal Medicine: Result - Labs CBC & Chem 7: 07/31/17 03:41 07/31/17 03:41 Labs: Short CBC 07/31/17 Range/Units 03:41 WBC 5.5 (4.3-11.1) K/mcL Hgb 8.1 L (12.9-16.9) g/dL Hct 24.6 L (37.5-50.1) % Plt Count 65 L (140-400) K/mcL Neutrophils # 3.5 (1.6-8.9) K/mcL [facility] 07/31/17 03:41 Sodium 134 L Potassium 3.5 Chloride 104 Carbon Dioxide 23 BUN 57 H Creatinine 2.47 H Glucose 90 Calcium 8.9 - ABG Interpretation ABG results: ABG ABG pH 7.47 pH Units (7.32-7.45) H 07/27/17 18:09 ABG pCO2 36 mmHg (35-45) 07/27/17 18:09 ABG pO2 61 mmHg (85-104) L 07/27/17 18:09 ABG O2 Saturation 93 % (95-98) L 07/27/17 18:09 PT/INR, D-dimer PT 14.9 Seconds (9.4-12.1) H 07/24/17 07:57 - Attending Attestation I independently interviewed and examined this pt. I agree with the findings, assessment and plan of Dr. Mansfield, internal grinder tender. Pt clinically improved. Though labelled as aspiration PNA, he is identified as having E Coli bacteremia for which Rocephin will adequately cover. I do not see a reason to expand coverage for aspiration (anaerobes) as he is clinically improving. All else as outlined above.
--- NOTE | 2017-07-31 15:19 | Nephrology Progress Note ---
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 at this time Encouraged po fluids Continue to avoid nephrotoxins if possible (2) Bacteremia due to Escherichia coli Current Visit: Yes Status: Acute Continue abx per primary team, currently at [facility] (3) [place] toxicity Current Visit: Yes Status: Acute [place] normalized at 1.1, would not suggest resumption till renal fxn resolved if at all May need pysch eval for alternate meds for his condition Qualifiers: Encounter type: initial encounter Injury intent: accidental or unintentional Qualified Code(s): T56.891A - Toxic effect of other metals, accidental (unintentional), initial encounter Subjective Principal diagnosis: KUSUM Interval history: Pt seen and examined much more awake and sitting up in bed eating. Communicates easily as well. Denies any current issues Objective - Vital Signs Vital signs: Vital Signs Temp Pulse Resp BP Pulse Ox 07/31/17 11:14 18 95 07/31/17 10:39 98 F 53 22 130/69 100 07/31/17 07:49 18 97 07/31/17 07:06 97.6 F 52 22 136/74 98 07/31/17 03:59 98.2 F 53 14 122/64 96 07/31/17 01:33 98.2 F 54 14 126/65 95 07/30/17 23:29 18 93 07/30/17 21:30 98.4 F 55 16 131/58 94 07/30/17 20:08 17 88 07/30/17 17:16 98.3 F 55 17 115/60 92 Intake and Output 07/30/17 07/31/17 07/31/17 23:59 07:59 15:59 Intake Total 0 / 0 1000 / 1000 240 / 240 Output Total 300 / 300 Balance 0 / 0 1000 / 1000 -60 / -60 Intake: IV Fluids 1000 / 1000 0.9 % Sodium Chloride 1,000 ML 1000 / 1000 @ 75 mls/hr IVC .[id number] [facility] Rx #:[id number] Oral 0 / 0 0 / 0 240 / 240 Output: Urine 300 / 300 Other: Meal Lunch Percent of Meal Consumed 50% # Voids 1 Weight 99.1 kg Blood Glucose* 109 85 97 Patient Weight 07/31/17 23:59 Weight 99.1 kg - Lab 07/31/17 03:41 07/31/17 03:41 Most recent lab results ABG pH 7.47 pH Units (7.32-7.45) H 07/27/17 18:09 ABG pCO2 36 mmHg (35-45) 07/27/17 18:09 ABG pO2 61 mmHg (85-104) L 07/27/17 18:09 ABG HCO3 26 mEq/L (21-27) 07/27/17 18:09 ABG O2 Saturation 93 % (95-98) L 07/27/17 18:09 Calcium 8.9 mg/dL (8.6-10.8) 07/31/17 03:41 Phosphorus 4.1 mg/dL (2.3-4.7) 07/31/17 03:41 Magnesium 2.0 mg/dL (1.6-2.6) 07/31/17 03:41 Consult Discharge Plan - Plan Referrals: Jared Connelly MD [Primary Care Provider] - 08/04/17 11:00 am (web request sent on 07/27/17)
[2017-07-31] MEDS: cefTRIAXone 2,000 MG in Water for inj. (sterile) 20 ML IVP SCH (15:47)
[2017-07-31] MEDS: Azithromycin 250 MG TABLET PO SCH (17:27)
[2017-08-01] MEDS: *HR* Heparin 5,000 UNIT/ML VIAL SQ SCH ×4 (00:35→23:58)
[2017-08-01] MEDS: Haloperidol Oral Conc 10 MG/5 ML UDC PO PRN (02:29)
[2017-08-01] MEDS: *HR* LORazepam 2 MG/ML VIAL IVP PRN (02:29)
[2017-08-01] MEDS: Ipratropium/Albuterol Neb 3 ML IH SCH ×6 (04:27→23:53)
[2017-08-01 07:48] LABS: Albumin 2.1 g/dL (3.5-5.0); Albumin/Globulin Ratio 0.5 (1.1-2.2); Bilirubin,Total 0.8 mg/dL (0.2-1.2); Calcium 8.4 mg/dL (8.6-10.8); Globulin 4.3 g/dL (2.4-3.5); Potassium 3.1 mEq/L (3.5-4.5); Total Protein 6.4 g/dL (6.0-8.3)
[2017-08-01] MEDS ORDERED: Potassium Chloride Elixir 20 MEQ/15 ML UDC PO ONE (08:16)
--- NOTE | 2017-08-01 08:25 | Internal Med Progress Note ---
<Columba Sanches - Last Filed: 08/01/17 08:21> Date of Encounter: 08/01/17 - Assessment and plan (1) Bacteremia due to Escherichia coli Current Visit: Yes Status: Acute Assessment and plan: -07/28/17 and 07/29/17 blood cultures negative. -White count was elevated at 11.3 on 07/27/17. White count today is -IV ceftriaxone. Patient will be on 14 day course of starting from first negative blood culture. (2) Acute kidney injury Current Visit: Yes Status: Acute Assessment and plan: -Serum creatinine and eGFR improving, Cr 1.8 and eGFR 39 -Monitor I's & O's -Avoid nephrotoxic medications -Nephrology following; MOLD CONSTRUCTION SUPERVISOR not indicated at this time (3) CHF (congestive heart failure) Current Visit: Yes Status: Acute Qualifiers: Congestive heart failure type: unspecified congestive heart failure type Congestive heart failure chronicity: acute Qualified Code(s): I50.9 - Heart failure, unspecified (4) Aspiration pneumonia Current Visit: Yes Status: Acute Qualifiers: Laterality: unspecified laterality Lung location: unspecified part of lung (5) Acute respiratory failure with hypoxia Current Visit: Yes Status: Acute (6) [place] toxicity Current Visit: Yes Status: Acute Qualifiers: Encounter type: initial encounter Injury intent: accidental or unintentional Qualified Code(s): T56.891A - Toxic effect of other metals, accidental (unintentional), initial encounter (7) Encephalopathy Current Visit: Yes Status: Acute (8) Alcohol dependence Current Visit: Yes Status: Acute Qualifiers: Substance use status: uncomplicated Qualified Code(s): F10.20 - Alcohol dependence, uncomplicated (9) Cholelithiasis Current Visit: Yes Status: Chronic Qualifiers: Cholelithiasis location: gallbladder Cholecystitis presence: with cholecystitis Cholecystitis acuity: acute Biliary obstruction: without biliary obstruction Qualified Code(s): K80.00 - Calculus of gallbladder with acute cholecystitis without obstruction - Subjective Interval history: Seen and examined this morning at bedside. Patient resting in bed. Patient is alert to self, place, and time. Patient feeling ok this morning. Denies chest pain, dyspnea, abdominal pain, nausea, vomiting. - Constitutional Vitals: Temp Pulse Resp BP Pulse Ox 97.8 F 51 16 102/58 84 08/01/17 03:45 08/01/17 03:45 08/01/17 03:45 08/01/17 03:45 08/01/17 03:45 General appearance: Present: disheveled, A&O X 3, no acute distress, obese Internal Medicine: Result - Labs CBC & Chem 7: 07/31/17 03:41 08/01/17 07:22 Labs: BMP 08/01/17 07:22 Sodium 132 L Potassium 3.1 L Chloride 106 Carbon Dioxide 20 BUN 45 H D Creatinine 1.80 H Glucose 92 Calcium 8.4 L Liver Function 08/01/17 Range/Units 07:22 Total Bilirubin 0.8 (0.2-1.2) mg/dL AST 62 H (5-34) Units/L ALT 25 (0-55) Units/L Alkaline Phosphatase 72 (38-126) Units/L Albumin 2.1 L (3.5-5.0) g/dL - ABG Interpretation ABG results: ABG ABG pH 7.47 pH Units (7.32-7.45) H 07/27/17 18:09 ABG pCO2 36 mmHg (35-45) 07/27/17 18:09 ABG pO2 61 mmHg (85-104) L 07/27/17 18:09 ABG O2 Saturation 93 % (95-98) L 07/27/17 18:09 PT/INR, D-dimer PT 14.9 Seconds (9.4-12.1) H 07/24/17 07:57 Consult Discharge Plan - Plan Referrals: Jared Connelly MD [Primary Care Provider] - 08/04/17 11:00 am (web request sent on 07/27/17) <Dawood Buckley - Last Filed: 08/01/17 18:29> Date of Encounter: 08/01/17 Time of Encounter: 15:00 - Constitutional Vitals: Temp Pulse Resp BP Pulse Ox 97.3 F L 51 14 113/72 95 08/01/17 11:43 08/01/17 11:43 08/01/17 15:29 08/01/17 11:43 08/01/17 15:29 Internal Medicine: Result - Labs CBC & Chem 7: 08/01/17 07:22 08/01/17 07:22 Labs: Short CBC 08/01/17 Range/Units 07:22 WBC 4.8 (4.3-11.1) K/mcL Hgb 8.3 L (12.9-16.9) g/dL Hct 25.9 L (37.5-50.1) % Plt Count 61 L (140-400) K/mcL Neutrophils # 2.5 (1.6-8.9) K/mcL BMP 08/01/17 07:22 Sodium 132 L Potassium 3.1 L Chloride 106 Carbon Dioxide 20 BUN 45 H D Creatinine 1.80 H Glucose 92 Calcium 8.4 L Liver Function 08/01/17 Range/Units 07:22 Total Bilirubin 0.8 (0.2-1.2) mg/dL AST 62 H (5-34) Units/L ALT 25 (0-55) Units/L Alkaline Phosphatase 72 (38-126) Units/L Albumin 2.1 L (3.5-5.0) g/dL - ABG Interpretation ABG results: ABG ABG pH 7.47 pH Units (7.32-7.45) H 07/27/17 18:09 ABG pCO2 36 mmHg (35-45) 07/27/17 18:09 ABG pO2 61 mmHg (85-104) L 07/27/17 18:09 ABG O2 Saturation 93 % (95-98) L 07/27/17 18:09 PT/INR, D-dimer PT 14.9 Seconds (9.4-12.1) H 07/24/17 07:57 - Attending Attestation I performed an independent interview and examine this patient. I discussed the case with Dr. Mansfield, accounting intern and I agree with her findings, assessment and plan. We will continue patient on Cipro for Escherichia coli bacteremia. Patient otherwise appears to be improving slowly. Nephrology input is appreciated. he will need a total of 14 days of therapy for his Escherichia coli bacteremia. Will continue with po Cipro due to excellent bioavailability.
[2017-08-01 08:32] LABS: Basophils % 0.8 %; Eosinophils # 0.2 K/mcL (0.0-0.6); Hematocrit 25.9 % (37.5-50.1); Hemoglobin 8.3 g/dL (12.9-16.9); Immature Granulocytes % 0.2 % (0-4); Immature Platelets 7.3 % (1.1-6.1); Lymphocytes # 1.2 K/mcL (0.6-4.6); Lymphocytes % 24.8 %; Mean Platelet Volume 12.4 fL (9.4-12.4); Monocytes # 0.8 K/mcL (0.0-1.3); Monocytes % 16.3 %; Red Blood Count 2.59 M/mcL (4.19-5.50); Red Cell Distribution Width 14.9 % (11.5-14.5); Segmented Neutrophils % 52.9 %
[2017-08-01 08:33] LABS: Neutrophils # 2.5 K/mcL (1.6-8.9); Platelet Count 61 K/mcL (140-400)
[2017-08-01] MEDS: rOPINIRole 1 MG TABLET PO SCH (09:13)
[2017-08-01] MEDS: Aspirin 81 MG TAB.CHEW PO SCH (09:13)
[2017-08-01] MEDS ORDERED: Cefdinir 300 MG CAPSULE PO SCH (15:15)
--- NOTE | 2017-08-01 16:29 | Nephrology Progress Note ---
Date of Encounter: 08/01/17 - Assessment and Plan (1) Acute kidney injury Current Visit: Yes Status: Acute SCr improving at 2.47, GFR 27 with IVF UOP good No indication for POWERPLANT OPERATOR at this time Encouraged po fluids Continue to avoid nephrotoxins if possible (2) Bacteremia due to Escherichia coli Current Visit: Yes Status: Acute Continue abx per primary team, currently at [facility] (3) [place] toxicity Current Visit: Yes Status: Acute [place] normalized at 1.1, would not suggest resumption till renal fxn resolved if at all May need pysch eval for alternate meds for his condition Qualifiers: Encounter type: initial encounter Injury intent: accidental or unintentional Qualified Code(s): T56.891A - Toxic effect of other metals, accidental (unintentional), initial encounter Subjective Principal diagnosis: KUSUM Interval history: Pt seen and examined much more awake and sitting up in bed eating. Communicates easily as well. Denies any current issues Objective - Vital Signs Vital signs: Vital Signs Temp Pulse Resp BP Pulse Ox 08/01/17 16:16 97.8 F 47 18 124/69 99 08/01/17 15:29 14 95 08/01/17 11:43 97.3 F L 51 14 113/72 98 08/01/17 11:34 16 98 08/01/17 09:30 95 08/01/17 08:35 16 95 08/01/17 03:45 97.8 F 51 16 102/58 84 08/01/17 00:20 98.0 F 51 15 114/69 92 07/31/17 23:14 16 95 07/31/17 20:24 98 F 52 16 117/71 97 07/31/17 19:49 16 97 07/31/17 19:25 94 Intake and Output 08/01/17 08/01/17 08/01/17 07:59 15:59 23:59 Intake Total 120 / 120 Balance 120 / 120 Intake: Oral 120 / 120 Other: # Voids 0 1 # Urine Diapers 1 Weight 102.8 kg Blood Glucose* 98 Patient Weight 08/01/17 23:59 Weight 102.8 kg - Lab 08/01/17 07:22 08/01/17 07:22 Most recent lab results ABG pH 7.47 pH Units (7.32-7.45) H 07/27/17 18:09 ABG pCO2 36 mmHg (35-45) 07/27/17 18:09 ABG pO2 61 mmHg (85-104) L 07/27/17 18:09 ABG HCO3 26 mEq/L (21-27) 07/27/17 18:09 ABG O2 Saturation 93 % (95-98) L 07/27/17 18:09 Calcium 8.4 mg/dL (8.6-10.8) L 08/01/17 07:22 Phosphorus 4.1 mg/dL (2.3-4.7) 07/31/17 03:41 Magnesium 2.0 mg/dL (1.6-2.6) 07/31/17 03:41 Consult Discharge Plan - Plan Referrals: Jared Connelly MD [Primary Care Provider] - 08/04/17 11:00 am (web request sent on 07/27/17)
[2017-08-02] MEDS: Ipratropium/Albuterol Neb 3 ML IH SCH ×5 (03:56→20:01)
[2017-08-02 06:42] LABS: Calcium 8.6 mg/dL (8.6-10.8); Potassium 3.8 mEq/L (3.5-4.5)
[2017-08-02] MEDS: rOPINIRole 1 MG TABLET PO SCH (10:10)
[2017-08-02] MEDS: Aspirin 81 MG TAB.CHEW PO SCH (10:10)
[2017-08-02] MEDS: *HR* Heparin 5,000 UNIT/ML VIAL SQ SCH ×2 (10:10→18:45)
--- NOTE | 2017-08-02 11:44 | Consult Note ---
Date of Encounter: 08/02/17 Time of Encounter: 11:39 Assessment & Recommendation (1) Altered mental status, unspecified Current visit: Yes Status: Acute Assessment & Recommendation: Unclear what his baseline is or why he is prescribed Crosby. Would help to get information from family or past records. If he needs another mood stabilizer would recommend Depakote as it is good for sherry and depression like Crosby but is processed through the liver so it should not exacerbate kidney issues. Qualifiers: Altered mental status type: disorientation Qualified Code(s): R41.0 - Disorientation, unspecified History of Present Illness Requesting Physician: Deepika Morales MD Reason for consult: lithium toxicity History of present illness: Mr. Durand is a 62 year old male who was admitted secondary to lithium toxicity and renal failure. On eval today client is pleasant but unable to give any reliable information about his history. When asked his diagnosis he said "escape." When asked who prescribes his Crosby he said "my employer." Gave nonsensical answers to most all questions. No family present to provide information. Does not appear manic. Unclear if he has a thought disorder or if he is just confused from all of the medical problems he is experiencing. CC: Deepika Morales MD Past Med Surg Social Fam HX - Past Medical History Medical history: asthma, CHF, COPD, hepatitis, hypertension, myocardial infarction, peripheral artery disease, other (Ascites) - Past Psychiatric History Past psychiatric history details: History unknown at this point Family psychiatric history: Unknown Family History of Suicide: Unknown - Social History Smoking Status: Current every day smoker Alcohol use: recent Drug use: other Medications & Allergies Aspirin 81 mg PO DAILY 05/17/15 [History] Doxepin [Sinequan] 25 mg PO BID 05/17/15 [History] Albuterol Sulfate [Ventolin Hfa] 2 puff IH Q4H PRN 07/23/17 [History] Atorvastatin Calcium [Lipitor] 20 mg PO HS 07/23/17 [History] Buspirone HCl [Buspar] 10 mg PO BID 07/23/17 [History] Carvedilol [Carvedilol] 12.5 mg PO BID 07/23/17 [History] Citalopram Hydrobromide [Citalopram HBr] 40 mg PO QPM 07/23/17 [History] Lansoprazole [Prevacid] 30 mg PO DAILY 07/23/17 [History] Crosby Carbonate [Crosby Carbonate] 600 mg PO BID 07/23/17 [History] Ropinirole HCl [Requip] 0.5 mg PO DAILY 07/23/17 [History] 3 Allergy/AdvReac Type Severity Reaction Status Date / Time No Known Allergies Allergy Verified 05/17/15 16:41 Review of Systems Constitutional: Denies: fever, chills, weakness, weight change Eyes: Denies: eye pain, vision change Ears, Nose, Throat: Denies: ear pain, throat pain, dental pain, hearing loss, congestion Cardiovascular: Denies: chest pain, palpitations, dyspnea on exertion Respiratory: Denies: cough, dyspnea, wheezes Gastrointestinal: Denies: abdominal pain, nausea, vomiting, diarrhea, constipation Genitourinary male: Denies: urgency, dysuria, frequency, genital lesions Genitourinary female: Denies: urgency, dysuria, frequency, abnormal menses, dyspareunia Musculoskeletal: Denies: joint swelling, joint pain Integumentary: Denies: rash, lesions, pruritus Neurological: Denies: headache, weakness, numbness, memory loss Endocrine: Denies: fatigue, heat or cold intolerance Hematologic/Lymphatic: Denies: easy bruising, lymphadenopathy Allergic/Immunologic: Denies: urticaria, itchy eyes Mental Status Exam Patient orientation: Yes Other Level of alertness: Alert Patient appearance: Appropriate Behavior: calm Psychomotor activity: Normal Eye contact: Maintains Eye Contact Mood description: Euthymic/stable Affect description: congruent with mood Speech pattern: Normal rate, Normal rhythm, Normal tone Speech volume: Normal Thought process: Disorganized Thought content: No Suicidal ideation, No Homicidal ideation, No Overt delusions Perceptual disturbances: No Auditory hallucinations, No Visual hallucinations Attention span: Capable of Focused Attention Memory description: Immediate Impaired, Recent Impaired, Remote Impaired Patient reliability: Not Reliable Historian Intelligence estimate: Average Judgment: Limited Insight: Minimal Results - Vital Signs Vital signs: Temp Pulse Resp BP Pulse Ox 97.2 F L 55 18 105/54 94 08/02/17 11:34 08/02/17 03:59 08/02/17 11:34 08/02/17 11:34 08/02/17 11:34 - Labs Labs: Laboratory Last Values WBC 4.8 K/mcL (4.3-11.1) 08/01/17 07:22 RBC 2.59 M/mcL (4.19-5.50) L 08/01/17 07:22 Hgb 8.3 g/dL (12.9-16.9) L 08/01/17 07:22 Hct 25.9 % (37.5-50.1) L 08/01/17 07:22 MCV 100.0 fL (83.0-100.0) 08/01/17 07:22 MCH 32.0 pg (28.0-33.3) 08/01/17 07:22 MCHC 32.0 g/dL (31.6-35.5) 08/01/17 07:22 RDW 14.9 % (11.5-14.5) H 08/01/17 07:22 Plt Count 61 K/mcL (140-400) L 08/01/17 07:22 MPV 12.4 fL (9.4-12.4) 08/01/17 07:22 Immature Gran % 0.2 % (0-4) 08/01/17 07:22 Seg Neutrophils % 52.9 % 08/01/17 07:22 Lymphocytes % 24.8 % 08/01/17 07:22 Monocytes % 16.3 % 08/01/17 07:22 Eosinophils % 5.0 % 08/01/17 07:22 Basophils % 0.8 % 08/01/17 07:22 Neutrophils # 2.5 K/mcL (1.6-8.9) 08/01/17 07:22 Lymphocytes # 1.2 K/mcL (0.6-4.6) 08/01/17 07:22 Monocytes # 0.8 K/mcL (0.0-1.3) 08/01/17 07:22 Eosinophils # 0.2 K/mcL (0.0-0.6) 08/01/17 07:22 Basophils # 0.0 K/mcL (0.0-0.2) 08/01/17 07:22 Nucleated RBCs/100 WBC 0.2 /100 WBC (0) H 07/28/17 04:05 Immature Plt Fraction 7.3 % (1.1-6.1) H 08/01/17 07:22 PT 14.9 Seconds (9.4-12.1) H 07/24/17 07:57 INR 1.4 07/24/17 07:57 Sample Site L Radial 07/27/17 18:09 ABG pH 7.47 pH Units (7.32-7.45) H 07/27/17 18:09 ABG pCO2 36 mmHg (35-45) 07/27/17 18:09 ABG pO2 61 mmHg (85-104) L 07/27/17 18:09 ABG HCO3 26 mEq/L (21-27) 07/27/17 18:09 ABG Total CO2 27 mEq/L (20-26) H 07/27/17 18:09 ABG O2 Saturation 93 % (95-98) L 07/27/17 18:09 ABG Base Excess 2 mEq/L (-2 to 3) 07/27/17 18:09 Marco Test Positive 07/27/17 18:09 O2 Delivery Device Cannula 07/27/17 18:09 Inspired O2 32.0 (1-15=lpm [id number]%) 07/27/17 18:09 Sodium 135 mEq/L (136-145) L 08/02/17 06:05 Potassium 3.8 mEq/L (3.5-4.5) 08/02/17 06:05 Chloride 108 mEq/L (98-109) 08/02/17 06:05 Carbon Dioxide 22 mEq/L (19-29) 08/02/17 06:05 BUN 37 mg/dL (8-26) H 08/02/17 06:05 Creatinine 1.58 mg/dL (0.72-1.25) H 08/02/17 06:05 Est GFR ( Amer) 55 (> 60) L 08/02/17 06:05 Est GFR (Non-Af Amer) 45 (> 60) L 08/02/17 06:05 BUN/Creatinine Ratio 23 (6-26) 08/02/17 06:05 Glucose 84 mg/dL (70-99) 08/02/17 06:05 POC Glucose 98 (58-89) H 08/01/17 11:54 Calculated Osmolality 288 (280-300) 08/02/17 06:05 Lactic Acid 0.9 mmol/L (0.5-2.2) 07/23/17 17:20 Calcium 8.6 mg/dL (8.6-10.8) 08/02/17 06:05 Phosphorus 4.1 mg/dL (2.3-4.7) 07/31/17 03:41 Magnesium 2.0 mg/dL (1.6-2.6) 07/31/17 03:41 Iron 86 mcg/dL (65-175) 07/24/17 06:45 % Saturation 26 % (20-55) 07/24/17 06:45 Transferrin 232 mg/dL (174-364) 07/24/17 06:45 Total Bilirubin 0.8 mg/dL (0.2-1.2) 08/01/17 07:22 Direct Bilirubin 0.6 mg/dL (0.0-0.5) H 07/30/17 05:05 Indirect Bilirubin 0.5 mg/dL (0.0-1.2) 07/30/17 05:05 AST 62 Units/L (5-34) H 08/01/17 07:22 ALT 25 Units/L (0-55) 08/01/17 07:22 Alkaline Phosphatase 72 Units/L (38-126) 08/01/17 07:22 Ammonia 41 mcmol/L (18-72) 07/27/17 06:00 Creatine Kinase 35 Units/L (30-200) 07/25/17 04:15 Troponin I 0.01 ng/mL (0-0.03) 07/23/17 17:20 B-Natriuretic Peptide 792 pg/mL (0-100) H 07/23/17 17:20 Serum Total Protein 6.4 g/dL (6.0-8.3) 08/01/17 07:22 Albumin 2.1 g/dL (3.5-5.0) L 08/01/17 07:22 Globulin 4.3 g/dL (2.4-3.5) H 08/01/17 07:22 Albumin/Globulin Ratio 0.5 (1.1-2.2) L 08/01/17 07:22 Lipase 81 Units/L (8-78) H 07/23/17 17:20 Vitamin B12 596 pg/mL (213-816) 07/24/17 06:45 Folate 11.8 ng/mL (7.0-31.4) 07/24/17 06:45 Urine Color Yellow (Yellow) 07/28/17 23:30 Urine Clarity Turbid (Clear) A 07/28/17 23:30 Urine pH 7.0 pH Units (5.0-8.0) 07/28/17 23: Ur Specific [place] 1.015 (1.010-1.025) 07/28/17 23:30 Urine Protein Negative mg/dL (Neg-Trace) 07/28/17 23: Urine Glucose (UA) Normal mg/dL (Normal) 07/28/17: Urine Ketones Negative mg/dL (Negative) 07/28/17 23:30 Urine Blood Negative (Negative) 07/28/17 23: Urine Nitrite Negative (Negative) 07/28/17: Urine Bilirubin Negative (Negative) 07/28/17: Urine Urobilinogen >=8.0 mg/dL (Normal) H 07/28/17 23:30 Ur Leukocyte Esterase Moderate (Negative) H 07/28/17 23:30 Urine Microscopic RBC TNTC per hpf (0-3) H 07/28/17:30 Urine Microscopic WBC 30-50 per hpf (0-3) H 07/28/17 23:30 Ur Squamous Epith Cells Many per lpf (None-Few) H 07/28/17 23:30 Urine Bacteria None Seen per hpf (None-Few) 07/28/17 23: Hyaline Casts None Seen per lpf (None-Few) 07/28/17 23:30 Ur Culture Indicated? YES (NO) A 07/28/17 23: Crosby 1.0 mEq/L (0.6-1.2) 07/31/17 03:41 A. baumannii (PCR) Not Detected (Not Detect) 07/27/17 15:54 Anay albicans (PCR) Not Detected (Not Detect) 07/27/17 15:54 C. glabrata (PCR) Not Detected (Not Detect) 07/27/17 15:54 C. krusei (PCR) Not Detected (Not Detect) 07/27/17 15:54 C. parapsilosis (PCR) Not Detected (Not Detect) 07/27/17 15:54 C. tropicalis (PCR) Not Detected (Not Detect) 07/27/17 15:54 Enterobacteriac sp PCR DETECTED (Not Detect) A 07/27/17 15:54 E. cloacae complex PCR Not Detected (Not Detect) 07/27/17 15:54 Enterococcus sp PCR Not Detected (Not Detect) 07/27/17 15:54 E. coli (PCR) DETECTED (Not Detect) A 07/27/17 15:54 H. influenzae (PCR) Not Detected (Not Detect) 07/27/17 15:54 Hepatitis A IgM Ab Nonreactive (Nonreactive) 07/23/17 17:20 Hep Bs Antigen Nonreactive (Nonreactive) 07/23/17 17:20 Hep Bs Antibody 5.41 mIU/mL 07/24/17 17:04 Hep B Core IgM Ab Nonreactive (Nonreactive) 07/23/17 17:20 Hepatitis C Ab Screen Reactive (Nonreactive) H 07/23/17 17:20 Klebsiella oxytoca PCR Not Detected (Not Detect) 07/27/17 15:54 Klebsiella pneumoniae Not Detected (Not Detect) 07/27/17 15:54 List. monocytogenes PCR Not Detected (Not Detect) 07/27/17 15:54 N. meningitidis (PCR) Not Detected (Not Detect) 07/27/17 15:54 Proteus species (PCR) Not Detected (Not Detect) 07/27/17 15:54 Serratia marcescens PCR Not Detected (Not Detect) 07/27/17 15:54 Staphylococcus sp PCR Not Detected (Not Detect) 07/27/17 15:54 Staph aureus (PCR) Not Detected (Not Detect) 07/27/17 15:54 mecA-Methicil Res Gene Not Detected (Not Detect) 07/27/17 15:54 Streptococcus sp PCR Not Detected (Not Detect) 07/27/17 15:54 Group A Strep DNA Not Detected (Not Detect) 07/27/17 15:54 Group B Strep (PCR) Not Detected (Not Detect) 07/27/17 15:54 Strep pneumoniae (PCR) Not Detected (Not Detect) 07/27/17 15:54 P. aeruginosa (PCR) Not Detected (Not Detect) 07/27/17 15:54 Amita/B-Vanco Res Genes Not Detected (Not Detect) 07/27/17 15:54 KPC (blaKPC) Detect PCR Not Detected (Not Detect) 07/27/17 15:54 Blood Type O POSITIVE 07/24/17 06:45 Antibody Screen NEGATIVE 07/24/17 06:45 Consult Discharge Plan - Plan Referrals: Jared Connelly MD [Primary Care Provider] - 08/04/17 11:00 am (web request sent on 07/27/17)
--- NOTE | 2017-08-02 12:26 | Internal Med Progress Note ---
<Columba Sanches - Last Filed: 08/02/17 12:24> Date of Encounter: 08/02/17 Time of Encounter: 12:24 - Assessment and plan (1) Bacteremia due to Escherichia coli Current Visit: Yes Status: Acute Assessment and plan: -07/28 and 07/29 blood cultures negative. -White count WNL since 07/28, last WBC 4.8 -PO ciprofloxacin (day 01/19) (2) Acute kidney injury Current Visit: Yes Status: Acute Assessment and plan: -Kidney function continues to improve, Cr 1.58 and eGFR 55 today -Monitor I's & O's; avoid nephrotoxic medications -Nephrology following (3) CHF (congestive heart failure) Current Visit: Yes Status: Acute Assessment and plan: -07.24.17 Echo shows LVEF 70%, normal LV and RV, moderate dilation LA, mild TR, mild pulmonary HTN Qualifiers: Congestive heart failure type: unspecified congestive heart failure type Congestive heart failure chronicity: acute Qualified Code(s): I50.9 - Heart failure, unspecified (4) Aspiration pneumonia Current Visit: Yes Status: Acute Qualifiers: Laterality: unspecified laterality Lung location: unspecified part of lung (5) Acute respiratory failure with hypoxia Current Visit: Yes Status: Acute (6) [place] toxicity Current Visit: Yes Status: Acute Qualifiers: Encounter type: initial encounter Injury intent: accidental or unintentional Qualified Code(s): T56.891A - Toxic effect of other metals, accidental (unintentional), initial encounter (7) Encephalopathy Current Visit: Yes Status: Acute (8) Alcohol dependence Current Visit: Yes Status: Acute Qualifiers: Substance use status: uncomplicated Qualified Code(s): F10.20 - Alcohol dependence, uncomplicated (9) Cholelithiasis Current Visit: Yes Status: Chronic Qualifiers: Cholelithiasis location: gallbladder Cholecystitis presence: with cholecystitis Cholecystitis acuity: acute Biliary obstruction: without biliary obstruction Qualified Code(s): K80.00 - Calculus of gallbladder with acute cholecystitis without obstruction - Subjective Interval history: Seen and examined this morning at bedside. Patient resting in bed. Patient is alert to self, place, and time. Patient feeling ok this morning. Denies chest pain, dyspnea, abdominal pain, nausea, vomiting. - Constitutional Vitals: Temp Pulse Resp BP Pulse Ox 97.2 F L 55 18 105/54 94 08/02/17 11:34 08/02/17 03:59 08/02/17 11:34 08/02/17 11:34 08/02/17 11:34 General appearance: Present: disheveled, A&O X 3, no acute distress, obese Internal Medicine: Result - Labs CBC & Chem 7: 08/01/17 07:22 08/02/17 06:05 Labs: BMP 08/02/17 06:05 Sodium 135 L Potassium 3.8 Chloride 108 Carbon Dioxide 22 BUN 37 H Creatinine 1.58 H Glucose 84 Calcium 8.6 - ABG Interpretation ABG results: ABG ABG pH 7.47 pH Units (7.32-7.45) H 07/27/17 18:09 ABG pCO2 36 mmHg (35-45) 07/27/17 18:09 ABG pO2 61 mmHg (85-104) L 07/27/17 18:09 ABG O2 Saturation 93 % (95-98) L 07/27/17 18:09 PT/INR, D-dimer PT 14.9 Seconds (9.4-12.1) H 07/24/17 07:57 Consult Discharge Plan - Plan Referrals: Jared Connelly MD [Primary Care Provider] - 08/04/17 11:00 am (web request sent on 07/27/17) <Dawood Buckley - Last Filed: 08/02/17 16:05> Date of Encounter: 08/02/17 - Constitutional Vitals: Temp Pulse Resp BP Pulse Ox 97.2 F L 60 18 105/54 94 08/02/17 11:34 08/02/17 09:15 08/02/17 11:34 08/02/17 11:34 08/02/17 11:34 Internal Medicine: Result - Labs CBC & Chem 7: 08/01/17 07:22 08/02/17 06:05 Labs: BMP 08/02/17 06:05 Sodium 135 L Potassium 3.8 Chloride 108 Carbon Dioxide 22 BUN 37 H Creatinine 1.58 H Glucose 84 Calcium 8.6 - ABG Interpretation ABG results: ABG ABG pH 7.47 pH Units (7.32-7.45) H 07/27/17 18:09 ABG pCO2 36 mmHg (35-45) 11/19/17 18:09 ABG pO2 61 mmHg (85-104) L 07/27/17 18:09 ABG O2 Saturation 93 % (95-98) L 07/27/17 18:09 PT/INR, D-dimer PT 14.9 Seconds (9.4-12.1) H 07/24/17 07:57 - Attending Attestation I independently interviewed and examined this pt. I agree wit the findings, assessment and plan of Dr. Mansfield. I discussed the case with her and my input is reflected in her note. Pt doing much better, renal fxn improved. Psyche input noted and appreciated. Pt is homeless and needs placement. [facility] is following and planning to re-eval on Friday.
--- NOTE | 2017-08-02 17:00 | Nephrology Progress Note ---
Date of Encounter: 08/02/17 Time of Encounter: 14:00 - Assessment and Plan (1) Acute kidney injury Current Visit: Yes Status: Acute SCr continues to improve at 1.58, GFR 45 UOP good No indication for TRANSITIONAL CARE LIAISON at this time. will sign off, please reconsult prn. can followup outpatinet on discharge within 4-6 weeks Encouraged po fluids Continue to avoid nephrotoxins if possible (2) Bacteremia due to Escherichia coli Current Visit: Yes Status: Acute Continue abx per primary team, currently at [facility] (3) [place] toxicity Current Visit: Yes Status: Acute [place] normalized, would not suggest resumption till renal fxn resolved if at all pysch eval for alternate meds for his condition Qualifiers: Encounter type: initial encounter Injury intent: accidental or unintentional Qualified Code(s): T56.891A - Toxic effect of other metals, accidental (unintentional), initial encounter Subjective Principal diagnosis: KUSUM Interval history: Pt seen and examined with no new complaints Objective - Vital Signs Vital signs: Vital Signs Temp Pulse Resp BP Pulse Ox 08/02/17 16:21 16 100 08/02/17 11:34 97.2 F L 18 105/54 94 08/02/17 11:16 16 99 08/02/17 09:15 98.0 F 60 16 110/61 94 08/02/17 07:55 16 99 08/02/17 03:59 97.2 F L 55 16 108/63 96 08/02/17 03:56 16 96 08/01/17 23:54 14 97 08/01/17 23:36 97.7 F 53 16 116/70 98 08/01/17 19:27 16 96 08/01/17 19:09 97.6 F 50 17 108/67 99 Intake and Output 08/02/17 08/02/17 08/02/17 07:59 15:59 23:59 Intake Total 390 / 390 Output Total 400 / 400 Balance -400 / -400 390 / 390 Intake: Oral 390 / 390 Output: Urine 400 / 400 Other: Meal Breakfast Percent of Meal Consumed 50% # Urine Diapers 1 1 Weight 105.3 kg Blood Glucose* 82 Patient Weight 08/02/17 23:59 Weight 105.3 kg - General Appearance General appearance: Present: well-developed, well-nourished EENT: Present: ATNC, mucous membranes moist Neck: Present: no JVD, supple Respiratory: Present: clear Cardiology: Present: no edema, normal S1, normal S2 Gastrointestinal: Present: no tenderness, no guarding Integumentary: Present: warm and dry Neurologic: Present: no focal deficit Musculoskeletal: Present: no deformities Psychiatric: Present: mood/affect appropriate - Lab 08/01/17 07:22 08/02/17 06:05 Most recent lab results ABG pH 7.47 pH Units (7.32-7.45) H 07/27/17 18:09 ABG pCO2 36 mmHg (35-45) 07/27/17 18:09 ABG pO2 61 mmHg (85-104) L 07/27/17 18:09 ABG HCO3 26 mEq/L (21-27) 07/27/17 18:09 ABG O2 Saturation 93 % (95-98) L 07/27/17 18:09 Calcium 8.6 mg/dL (8.6-10.8) 08/02/17 06:05 Phosphorus 4.1 mg/dL (2.3-4.7) 07/31/17 03:41 Magnesium 2.0 mg/dL (1.6-2.6) 07/31/17 03:41 Consult Discharge Plan - Plan Referrals: Jared Connelly MD [Primary Care Provider] - 08/04/17 11:00 am (web request sent on 07/27/17)
[2017-08-02] MEDS: *HR* LORazepam 2 MG/ML VIAL IVP PRN (19:11)
[2017-08-02] MEDS: Haloperidol Oral Conc 10 MG/5 ML UDC PO PRN (21:07)
[2017-08-03] MEDS: Ipratropium/Albuterol Neb 3 ML IH SCH ×6 (00:20→21:03)
[2017-08-03] MEDS: *HR* Heparin 5,000 UNIT/ML VIAL SQ SCH ×3 (00:46→18:08)
[2017-08-03] MEDS: Haloperidol Oral Conc 10 MG/5 ML UDC PO PRN ×2 (00:46→22:09)
[2017-08-03] MEDS: *HR* LORazepam 2 MG/ML VIAL IVP PRN (04:10)
--- NOTE | 2017-08-03 06:33 | Internal Med Progress Note ---
<Columba Sanches - Last Filed: 08/03/17 10:44> Date of Encounter: 08/03/17 - Assessment and plan (1) Bacteremia due to Escherichia coli Current Visit: Yes Status: Acute Assessment and plan: -07/28 and 07/29 blood cultures negative. -White count WNL since 07/28, last WBC 4.8 -PO ciprofloxacin (day 02/19) (2) Acute kidney injury Current Visit: Yes Status: Acute Assessment and plan: -Kidney function continues to improve -Monitor I's & O's; avoid nephrotoxic medications -Nephrology following (3) CHF (congestive heart failure) Current Visit: Yes Status: Acute Assessment and plan: -07.24.17 Echo shows LVEF 70%, normal LV and RV, moderate dilation LA, mild TR, mild pulmonary HTN Qualifiers: Congestive heart failure type: unspecified congestive heart failure type Congestive heart failure chronicity: acute Qualified Code(s): I50.9 - Heart failure, unspecified (4) Aspiration pneumonia Current Visit: Yes Status: Resolved Qualifiers: Laterality: unspecified laterality Lung location: unspecified part of lung (5) Acute respiratory failure with hypoxia Current Visit: Yes Status: Acute Assessment and plan: -likely due to pulmonary edema from CHF -CXR findings suggestive of PNA as mentioned above -currently on empiric azithromycin and rocephin -will wean down O2 and continue albuterol, duonebs (6) [place] toxicity Current Visit: Yes Status: Acute Qualifiers: Encounter type: initial encounter Injury intent: accidental or unintentional Qualified Code(s): T56.891A - Toxic effect of other metals, accidental (unintentional), initial encounter (7) Encephalopathy Current Visit: Yes Status: Acute (8) Alcohol dependence Current Visit: Yes Status: Acute Qualifiers: Substance use status: uncomplicated Qualified Code(s): F10.20 - Alcohol dependence, uncomplicated (9) Cholelithiasis Current Visit: Yes Status: Chronic Qualifiers: Cholelithiasis location: gallbladder Cholecystitis presence: with cholecystitis Cholecystitis acuity: acute Biliary obstruction: without biliary obstruction Qualified Code(s): K80.00 - Calculus of gallbladder with acute cholecystitis without obstruction - Subjective Interval history: Seen and examined this morning at bedside. Patient resting in bed. Patient is alert to self, place, and time. Patient feeling ok this morning. Denies chest pain, dyspnea, abdominal pain, nausea, vomiting. - Constitutional Vitals: Temp Pulse Resp BP Pulse Ox 98.7 F 57 20 150/81 96 08/03/17 04:00 08/03/17 04:00 08/03/17 04:10 08/03/17 04:00 08/03/17 04:10 General appearance: Present: disheveled, A&O X 3, no acute distress, obese Internal Medicine: Result - Labs CBC & Chem 7: 08/01/17 07:22 08/02/17 06:05 Labs: BMP 08/02/17 06:05 Sodium 135 L Potassium 3.8 Chloride 108 Carbon Dioxide 22 BUN 37 H Creatinine 1.58 H Glucose 84 Calcium 8.6 - ABG Interpretation ABG results: ABG ABG pH 7.47 pH Units (7.32-7.45) H 07/27/17 18:09 ABG pCO2 36 mmHg (35-45) 07/27/17 18:09 ABG pO2 61 mmHg (85-104) L 07/27/17 18:09 ABG O2 Saturation 93 % (95-98) L 07/27/17 18:09 PT/INR, D-dimer PT 14.9 Seconds (9.4-12.1) H 07/24/17 07:57 Consult Discharge Plan - Plan Referrals: Jared Connelly MD [Primary Care Provider] - 08/04/17 11:00 am (web request sent on 07/27/17) <Dawood Buckley - Last Filed: 08/03/17 13:31> Date of Encounter: 08/03/17 Time of Encounter: 12:30 - Constitutional Vitals: Temp Pulse Resp BP Pulse Ox 97.7 F 53 20 111/68 91 08/03/17 10:58 08/03/17 10:58 08/03/17 11:56 08/03/17 10:58 08/03/17 11:56 Internal Medicine: Result - Labs CBC & Chem 7: 08/01/17 07:22 08/02/17 06:05 - ABG Interpretation ABG results: ABG ABG pH 7.47 pH Units (7.32-7.45) H 07/27/17 18:09 ABG pCO2 36 mmHg (35-45) 07/27/17 18:09 ABG pO2 61 mmHg (85-104) L 07/27/17 18:09 ABG O2 Saturation 93 % (95-98) L 07/27/17 18:09 PT/INR, D-dimer PT 14.9 Seconds (9.4-12.1) H 07/24/17 07:57 - Attending Attestation I independently interviewed and examined this pt. I agree with the findings, assessment and plan of Dr. Mansfield. I discussed the case with her and my input is reflected in her note. Pt doing much better, renal fxn improved. Psyche input noted and appreciated. Pt not requiring additional or new psyche meds at this time. [place] stopped indefinitely as they did not know why he needed. Pt is homeless and needs placement. [employer] is following and planning to re-eval on Friday. Pt is stable for dc once arranged.
[2017-08-03] MEDS: Aspirin 81 MG TAB.CHEW PO SCH (09:59)
[2017-08-03] MEDS: rOPINIRole 1 MG TABLET PO SCH (09:59)
[2017-08-03] MEDS ORDERED: risperiDONE 0.25 MG TABLET PO PRN (18:00)
[2017-08-03 19:28] LABS: Calcium 8.9 mg/dL (8.6-10.8)
--- NOTE | 2017-08-04 00:09 | Death Note ---
Pronouncement Note - Additional Data Attending physician: Deepika Morales MD
[2017-08-04] MEDS: Ipratropium/Albuterol Neb 3 ML IH SCH ×6 (00:54→20:32)
[2017-08-04] MEDS: *HR* Heparin 5,000 UNIT/ML VIAL SQ SCH ×4 (01:04→23:37)
[2017-08-04 03:45] LABS: BUN/Creatinine Ratio 17 (6-26); Blood Urea Nitrogen 24 mg/dL (8-26); Calcium 9.1 mg/dL (8.6-10.8); Carbon Dioxide 21 mEq/L (19-29); Chloride 113 mEq/L (98-109); Glucose 81 mg/dL (70-99); Osmolality,Calculated 291 (280-300); Potassium 3.8 mEq/L (3.5-4.5); Sodium 139 mEq/L (136-145); eGFR For African Americans > 60 (> 60); eGFR For Non-African Americans 50 (> 60)
[2017-08-04] MEDS: Haloperidol Oral Conc 10 MG/5 ML UDC PO PRN (04:19)
[2017-08-04 07:13] LABS: Hematocrit 29.3 % (37.5-50.1); Hemoglobin 9.3 g/dL (12.9-16.9); Mean Corpuscular HGB Conc 31.7 g/dL (31.6-35.5); Mean Corpuscular Hemoglobin 32.2 pg (28.0-33.3); Mean Corpuscular Volume 101.4 fL (83.0-100.0); Mean Platelet Volume 10.5 fL (9.4-12.4); Platelet Count 92 K/mcL (140-400); Red Blood Count 2.89 M/mcL (4.19-5.50); Red Cell Distribution Width 15.4 % (11.5-14.5)
[2017-08-04 07:26] LABS: Calcium 9.1 mg/dL (8.6-10.8)
[2017-08-04] MEDS: Aspirin 81 MG TAB.CHEW PO SCH (09:52)
[2017-08-04] MEDS: rOPINIRole 1 MG TABLET PO SCH (09:52)
[2017-08-04] MEDS ORDERED: Thiamine (B-1) 100 MG in D5% in Water 50 ML IVPB ONE (16:31)
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
[2017-08-04] MEDS ORDERED: Sennosides/Docusate Sodium TABLET PO PRN (16:47)
[2017-08-04] MEDS: Folic Acid 1 MG TABLET PO SCH (18:14)
[2017-08-04] MEDS: Cyanocobalamin (B-12) 1,000 MCG TABLET PO SCH (18:14)
[2017-08-04] MEDS: Thiamine (B-1) 100 MG TABLET PO SCH (20:20)
[2017-08-05] MEDS: Ipratropium/Albuterol Neb 3 ML IH SCH ×6 (00:29→21:29)
[2017-08-05 06:09] LABS: Basophils # 0.1 K/mcL (0.0-0.2); Eosinophils # 0.2 K/mcL (0.0-0.6); Eosinophils % 3.8 %; Hematocrit 29.9 % (37.5-50.1); Hemoglobin 9.5 g/dL (12.9-16.9); Immature Granulocytes % 0.4 % (0-4); Immature Platelets 4.6 % (1.1-6.1); Lymphocytes # 1.4 K/mcL (0.6-4.6); Lymphocytes % 25.7 %; Mean Corpuscular HGB Conc 31.8 g/dL (31.6-35.5); Mean Corpuscular Volume 100.7 fL (83.0-100.0); Mean Platelet Volume 11.1 fL (9.4-12.4); Monocytes # 0.4 K/mcL (0.0-1.3); Monocytes % 6.8 %; Neutrophils # 3.3 K/mcL (1.6-8.9); Platelet Count 104 K/mcL (140-400); Red Blood Count 2.97 M/mcL (4.19-5.50); Red Cell Distribution Width 15.7 % (11.5-14.5); Segmented Neutrophils % 62.3 %
[2017-08-05 06:34] LABS: Albumin 2.4 g/dL (3.5-5.0); BUN/Creatinine Ratio 13 (6-26); Blood Urea Nitrogen 18 mg/dL (8-26); Calcium 8.9 mg/dL (8.6-10.8); Carbon Dioxide 20 mEq/L (19-29); Chloride 112 mEq/L (98-109); Glucose 89 mg/dL (70-99); Magnesium 1.3 mg/dL (1.6-2.6); Osmolality,Calculated 289 (280-300); Phosphorous 3.4 mg/dL (2.3-4.7); Potassium 3.8 mEq/L (3.5-4.5); Sodium 139 mEq/L (136-145); eGFR For African Americans > 60 (> 60); eGFR For Non-African Americans 51 (> 60)
[2017-08-05] MEDS: rOPINIRole 1 MG TABLET PO SCH (08:01)
[2017-08-05] MEDS: *HR* Heparin 5,000 UNIT/ML VIAL SQ SCH ×3 (08:02→23:24)
[2017-08-05] MEDS: Thiamine (B-1) 100 MG TABLET PO SCH (08:02)
[2017-08-05] MEDS: Cyanocobalamin (B-12) 1,000 MCG TABLET PO SCH (08:02)
[2017-08-05] MEDS: Aspirin 81 MG TAB.CHEW PO SCH (08:03)
[2017-08-05] MEDS: Folic Acid 1 MG TABLET PO SCH (08:03)
--- NOTE | 2017-08-05 11:46 | Internal Med Progress Note ---
Date of Encounter: 08/05/17 Time of Encounter: 11:44 - Assessment and plan (1) Acute kidney injury Status: Acute Assessment and plan: Presented with acute kidney injury associated with volume overload, oliguria and noted to have lithium toxicity. Nephrology has been on board, patient required temporary hemodialysis and is currently off dialysis. Serum creatinine steadily improving, 1.4 to today. Monitor and replete electrolytes as needed. (2) [place] toxicity Status: Resolved Assessment and plan: Serum lithium levels decreased to normal. Patient has been evaluated by psychiatric, no need for lithium treatment at this time. Qualifiers: Encounter type: initial encounter Injury intent: accidental or unintentional Qualified Code(s): T56.891A - Toxic effect of other metals, accidental (unintentional), initial encounter (3) CHF (congestive heart failure) Status: Suspected Assessment and plan: Echocardiogram during this admission showed preserved ejection fraction, moderate biatrial dilation, mild pulmonary hypertension. Qualifiers: Congestive heart failure type: diastolic Congestive heart failure chronicity: chronic Qualified Code(s): I50.32 - Chronic diastolic (congestive ) heart failure (4) Acute metabolic encephalopathy Status: Acute Assessment and plan: Patient has reported history of chronic alcohol use and had some alcohol withdrawal after admission. His mental status has been improving, however continues to have some confusion, amnesia and hallucinations. Patient is unable to care for self at this time, does not understand his medical diagnosis. 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 (5) Acute respiratory failure with hypoxia Status: Resolved (6) Bacteremia due to Escherichia coli Status: Acute Assessment and plan: Patient was noted to have Escherichia coli bacteremia, repeat blood cultures are negative. Source is thought to be possible aspiration pneumonia. Has been on IV Rocephin and azithromycin for 4 days which was changed to oral ciprofloxacin-day 11. (7) Aspiration pneumonia Status: Suspected Assessment and plan: Suspected. Antibiotics as above. Qualifiers: Aspiration pneumonia type: unspecified Laterality: unspecified laterality Lung location: unspecified part of lung Qualified Code(s): J69.0 - Pneumonitis due to inhalation of food and vomit (8) Schizophrenia Status: Chronic Assessment and plan: Psychiatric evaluation noted. Continue current medications along with when necessary Haldol for agitation. Qualifiers: Schizophrenia type: unspecified Qualified Code(s): F20.9 - Schizophrenia, unspecified - Subjective Interval history: Feels better; no chest pain, nausea, vomiting; knows where he is, asks if he can choose the ECF he wants to go to; - Constitutional Vitals: Temp Pulse Resp BP Pulse Ox 98.2 F 61 17 140/78 93 08/05/17 07:52 08/05/17 07:52 08/05/17 11:19 08/05/17 07:52 08/05/17 11:19 General appearance: Present: disheveled, A&O X 2, answers questions appropriately - Respiratory Respiratory exam: Present: CTAB. Absent: accessory muscle use, rales, rhonchi, wheezes - Cardiovascular Cardiovascular exam: Present: RRR, +S1, +S2. Absent: diastolic murmur, gallop, rubs, systolic murmur - GI/Abdominal GI/Abdominal exam: Present: normal bowel sounds, soft, no peritoneal signs. Absent: distended, tenderness - Extremities Exam Extremities exam: Present: pedal edema, warm, radial pulses palpable and symmetrical. Absent: calf tenderness, cyanotic Internal Medicine: Result - Labs CBC & Chem 7: 08/05/17 04:51 08/06/17 05:28 Labs: Short CBC 08/05/17 Range/Units 04:51 WBC 5.3 (4.3-11.1) K/mcL Hgb 9.5 L (12.9-16.9) g/dL Hct 29.9 L (37.5-50.1) % Plt Count 104 L (140-400) K/mcL Neutrophils # 3.3 (1.6-8.9) K/mcL BMP 08/05/17 04:51 Sodium 139 Potassium 3.8 Chloride 112 H Carbon Dioxide 20 BUN 18 Creatinine 1.42 H Glucose 89 Calcium 8.9 Liver Function 08/05/17 Range/Units 04:51 Albumin 2.4 L (3.5-5.0) g/dL - ABG Interpretation ABG results: ABG ABG pH 7.47 pH Units (7.32-7.45) H 07/27/17 18:09 ABG pCO2 36 mmHg (35-45) 07/27/17 18:09 ABG pO2 61 mmHg (85-104) L 07/27/17 18:09 ABG O2 Saturation 93 % (95-98) L 07/27/17 18:09 PT/INR, D-dimer PT 14.9 Seconds (9.4-12.1) H 07/24/17 07:57 - Impressions Impressions Chest X-Ray 08/05/17 16:45 IMPRESSION: Cardiomegaly and mild pulmonary edema. Findings may reflect congestive heart failure. D/ / 08/05/2017 09:16:21 Derek Valentino MD / Nicki Orta Interpreting Provider: Derek Valentino MD Consult Discharge Plan - Plan Referrals: Jared Connelly MD [Primary Care Provider] - 08/04/17 11:00 am (web request sent on 07/27/17) Prescriptions: Magnesium Oxide [Magnesium] 400 mg PO DAILY #10 tablet
[2017-08-06] MEDS: Ipratropium/Albuterol Neb 3 ML IH SCH ×4 (00:22→11:53)
[2017-08-06 06:07] LABS: BUN/Creatinine Ratio 13 (6-26); Blood Urea Nitrogen 17 mg/dL (8-26); Calcium 8.7 mg/dL (8.6-10.8); Carbon Dioxide 19 mEq/L (19-29); Chloride 111 mEq/L (98-109); Glucose 88 mg/dL (70-99); Magnesium 1.5 mg/dL (1.6-2.6); Osmolality,Calculated 283 (280-300); Potassium 3.9 mEq/L (3.5-4.5); Sodium 136 mEq/L (136-145); eGFR For African Americans > 60 (> 60); eGFR For Non-African Americans 56 (> 60)
[2017-08-06 07:17] VITALS: BP 121/64
[2017-08-06] MEDS: *HR* Heparin 5,000 UNIT/ML VIAL SQ SCH (08:37)
[2017-08-06] MEDS: Folic Acid 1 MG TABLET PO SCH (08:38)
[2017-08-06] MEDS: rOPINIRole 1 MG TABLET PO SCH (08:38)
[2017-08-06] MEDS: Aspirin 81 MG TAB.CHEW PO SCH (08:38)
[2017-08-06] MEDS: Cyanocobalamin (B-12) 1,000 MCG TABLET PO SCH (08:40)
[2017-08-06] MEDS ORDERED: Thiamine (B-1) 100 MG TABLET PO SCH (09:00)
--- NOTE | 2017-08-06 10:50 | Discharge Summary ---
Date of Encounter: 09/05/17 Time of Encounter: 10:45 - Discharge Diagnosis (1) Acute kidney injury Priority: Primary Status: Acute (2) [place] toxicity Priority: Primary Status: Resolved Qualifiers: Encounter type: initial encounter Injury intent: accidental or unintentional Qualified Code(s): T56.891A - Toxic effect of other metals, accidental (unintentional), initial encounter (3) CHF (congestive heart failure) Priority: Secondary Status: Suspected Qualifiers: Congestive heart failure type: diastolic Congestive heart failure chronicity: chronic Qualified Code(s): I50.32 - Chronic diastolic (congestive ) heart failure (4) Acute metabolic encephalopathy Priority: Primary Status: Acute (5) Acute respiratory failure with hypoxia Priority: Primary Status: Resolved (6) Bacteremia due to Escherichia coli Priority: Primary Status: Acute (7) Aspiration pneumonia Priority: Primary Status: Suspected Qualifiers: Aspiration pneumonia type: unspecified Laterality: unspecified laterality Lung location: unspecified part of lung Qualified Code(s): J69.0 - Pneumonitis due to inhalation of food and vomit (8) Schizophrenia Priority: Secondary Status: Chronic Qualifiers: Schizophrenia type: unspecified Qualified Code(s): F20.9 - Schizophrenia, unspecified - Discharge Medications Prescriptions: Magnesium Oxide [Magnesium] 400 mg PO DAILY #10 tablet Home Medications: Aspirin 81 mg PO DAILY 05/17/15 [History] Doxepin [Sinequan] 25 mg PO BID 05/17/15 [History] Albuterol Sulfate [Ventolin Hfa] 2 puff IH Q4H PRN 07/23/17 [History] Atorvastatin Calcium [Lipitor] 20 mg PO HS 07/23/17 [History] Buspirone HCl [Buspar] 10 mg PO BID 07/23/17 [History] Carvedilol 12.5 mg PO BID 07/23/17 [History] Citalopram Hydrobromide [Citalopram HBr] 40 mg PO QPM 07/23/17 [History] Lansoprazole [Prevacid] 30 mg PO DAILY 07/23/17 [History] Ropinirole HCl [Requip] 0.5 mg PO DAILY 07/23/17 [History] Ciprofloxacin [Cipro] 500 mg PO BID #5 tablet 08/06/17 [Rx] Haloperidol Oral Conc [Haldol] 2 mg PO TID PRN udc 08/06/17 [Rx] Magnesium Oxide [Magnesium] 400 mg PO DAILY #10 tablet 08/06/17 [Rx] risperiDONE [RisperDAL] 0.25 mg PO BID PRN tablet 08/06/17 [Rx] Allergies/Adverse Reactions: 3 Allergy/AdvReac Type Severity Reaction Status Date / Time No Known Allergies Allergy Verified 05/17/15 16:41 Date of admission: 07/23/17 20:32 Primary care physician: Jared Connelly MD Consults: 07/23/17 20:34 Consult to Nephrology [CONS] Routine Consulting Provider: Kidney Adelina/PORFIRIO/MARIANA/DANO Reason for Consult: KUSUM, Omar toxicity, pulmonary edema, fluid overload Call Completed: Yes 07/24/17 09:48 Consult to Interventional Radiology [CONS] Routine Consulting Provider: Radiology Interventional Cols Reason for Consult: Please eval for placement of a temp HD catheter, re: Symptomatic Li toxicity, KUSUM and pulm edema Call Completed: Yes 07/24/17 10:00 Consult to Dialysis [CONS] ONCE 07/24/17 13:43 Consult to Founder [CONS] Routine Reason for SW Consult: HOMELESS 07/25/17 09:30 Consult to Dialysis [CONS] ONCE 07/29/17 14:00 Consult to Invasive Line Access Team [CONS] Routine Reason for Consult: home atb Line Type: EPIV 07/30/17 11:08 Consult to Occupational Therapy [CONS] Routine Comment: Evaluate, develop and implement POC Reason for Consult: eval for ecf Consult to Physical Therapy [CONS] Routine Comment: Evaluate, develop and implement POC Reason for Consult: eval for ecf 08/01/17 14:48 Consult to Psychiatry [CONS] Routine Consulting Provider: Psychiatry Adelina Reason for Consult: med recommendation: pt can't take lithium for schizophrenia and bipolar due to admission for lithium toxicity Time Notified: 14:49 Call Completed: Yes Discharging clinician: Annette Lopez Anticipated date of discharge: 08/06/17 - Patient Status Disposition: Transfer [facility] Condition: Fair Functional capacity at discharge: independent ambulation Overall status at discharge: patient is not back to baseline - Discharge Instructions Follow Up With: Jared Connelly MD [Primary Care Provider] - 08/04/17 11:00 am (web request sent on 07/27/17) - Diet and Activity Activity: as per physical therapy Diet: low fat, low cholesterol, low salt diet Hospital course: Mr. Durand is a 62 year old male with history of schizophrenia, possible alcohol abuse, who was sent from [place] emergency room after being found with altered mental status and renal failure. He was noted to have lithium toxicity along with acute renal failure. Nephrology was consulted and patient initially required temporary hemodialysis but was gradually able to be weaned off and serum creatinine is currently stable and improving. Urine output is noted to be appropriate. Patient was evaluated by psychiatry, no reason for lithium has been identified and this has been discontinued since admission. Remaining home medications were continued for more disorder, schizophrenia. Patient's mental status gradually improved and he is currently more alert and somewhat oriented but continues to have visual hallucinations and confusion. Echocardiogram during this admission showed preserved ejection fraction, moderate biatrial dilation, mild pulmonary hypertension. Patient was also noted to have Escherichia coli bacteremia, source was suspected to be possible aspiration. He initially received IV Rocephin and azithromycin, which was later changed to ciprofloxacin. He is being discharged with 2 more days of oral ciprofloxacin to complete a 14 day course of antibiotics. Patient is homeless with no family to care for him. Case has been discussed with [place] hospitalist and patient is medically stable for transfer to [place] psychiatry unit. - Time Spent with Patient Total time spent providing and/or coordinating discharge services: Greater than 30 minutes (45 min) - Constitutional Vitals: Temp Pulse Resp BP Pulse Ox 98.0 F 58 18 121/64 92 08/06/17 07:13 08/06/17 07:13 08/06/17 07:56 08/06/17 07:13 08/06/17 07:56 General appearance: Present: A&O X 1 (hallucinates and talks inappropriately and irrelevantly), disheveled. Absent: answers questions appropriately - Cardiovascular Cardiovascular exam: Present: RRR, +S1, +S2. Absent: diastolic murmur, gallop, rubs, systolic murmur
--- NOTE | 2017-08-06 11:29 | Physician Discharge Referral ---
ExtendedCare Referral Info Transfer To: [place] [facility] Provider in Charge: Annette Lopez Provider in Charge after Transfer: PCP Institutional Level of Care: Skilled - Diagnosis (1) Acute kidney injury Priority: Primary Status: Acute (2) [place] toxicity Priority: Primary Status: Acute (3) CHF (congestive heart failure) Priority: Secondary Status: Chronic (4) Acute metabolic encephalopathy Priority: Primary Status: Acute (5) Acute respiratory failure with hypoxia Priority: Primary Status: Resolved (6) Bacteremia due to Escherichia coli Priority: Primary Status: Acute (7) Aspiration pneumonia Priority: Primary Status: Suspected (8) Schizophrenia Priority: Secondary Status: Chronic Expected Duration of Placement: 4 weeks Prognosis: Fair - Transfer Medications Prescriptions: Magnesium Oxide [Magnesium] 400 mg PO DAILY #10 tablet Home Medications: Aspirin 81 mg PO DAILY 05/17/15 [History] Doxepin [Sinequan] 25 mg PO BID 05/17/15 [History] Albuterol Sulfate [Ventolin Hfa] 2 puff IH Q4H PRN 07/23/17 [History] Atorvastatin Calcium [Lipitor] 20 mg PO HS 07/23/17 [History] Buspirone HCl [Buspar] 10 mg PO BID 07/23/17 [History] Carvedilol 12.5 mg PO BID 07/23/17 [History] Citalopram Hydrobromide [Citalopram HBr] 40 mg PO QPM 07/23/17 [History] Lansoprazole [Prevacid] 30 mg PO DAILY 07/23/17 [History] Ropinirole HCl [Requip] 0.5 mg PO DAILY 07/23/17 [History] Ciprofloxacin [Cipro] 500 mg PO BID #5 tablet 08/06/17 [Rx] Haloperidol Oral Conc [Haldol] 2 mg PO TID PRN udc 08/06/17 [Rx] Magnesium Oxide [Magnesium] 400 mg PO DAILY #10 tablet 08/06/17 [Rx] risperiDONE [RisperDAL] 0.25 mg PO BID PRN tablet 08/06/17 [Rx] Allergies/Adverse Reactions: 3 Allergy/AdvReac Type Severity Reaction Status Date / Time No Known Allergies Allergy Verified 05/17/15 16:41 - Respiratory Orders Smoking Cessation: Smoking cessation has been advised. For more information, call the [place] Tobacco Quit Line at 4-366-LWNU-NOW. - Advance Directives Code Status: Full Code - Mobility Orders Ambulate - Rehabiliation Orders Rehab Potential: Good Rehab Orders: ROM Exercises, Evaluation for Physical Therapy, Evaluation for Occupational Therapy - Diet Orders Cardiac CERTIFICATION: I certify that the transfer of the above named patient to an Extended Care Facility is necessary for the continuing treatment of the diagnosis listed. The above information is true and accurate reflection of patient's current condition. Confidential - Redisclosure prohibited without a patient's written consent.
== END 2017-08-06 12:10 | DRG 917 ==
LOC: EMEROO 15:53 → 2ANU 20:32 → SUATTDRO 20:32 → 2ANU 20:44
PROVIDERS: ADMIT Internal Medicine; ATTEND Internal Medicine

== ENCOUNTER 2018-07-27 06:24 | Inpatient (IN) ==
[2018-07-27] MEDS ORDERED: Aspirin 81 MG TAB.CHEW PO ONE (06:26)
--- NOTE | 2018-07-27 06:31 | Emergency Department Note ---
Addendum entered and electronically signed by Jared Haji DO 07/27/18 06:46: 07/27/18 at 06:26. Sinus tachycardia. Rate 103. DC 189. QRS 83. QTC 438. Normal axis. No acute ST elevation or depression. Original Note: Disposition Clinical Impression: Chest pain Qualifiers: Chest pain type: unspecified Qualified Code(s): R07.9 - Chest pain, unspecified Disposition: Still a Patient Condition: Fair Referrals: NONE,PCP [Primary Care Provider] - Forms: ED Satisfaction Letter Time of Disposition: 06:35 Chest Pain HPI - General Chief Complaint: ED Chest Pain Stated Complaint: Chest Pain Time Seen by Provider: 07/27/18 06:26 Source: patient, EMS Mode of arrival: EMS Limitations: no limitations Vital Signs Reviewed: Yes Nursing Notes Reviewed: Yes - History of Present Illness HPI Narrative: Patient is a 63-year-old male with past medical history of COPD, hypertension. He presents today due to concern for chest pain. Patient states that he woke up out of sleep around 3 AM this morning with crushing substernal chest pain. States that it has been constant, rated a 10 out of 10. Denies any radiation anywhere else. Admits to associated shortness of breath. Denies any sweating, nausea, vomiting, diarrhea, abdominal pain, dysuria, hematuria. He called EMS. EMS gave the patient aspirin 324, one nitroglycerin which he states took his pain to a 9 out of 10. He also received 1 albuterol due to EMS stating that he sounded wheezy on exam. Denies any previous CA history, any history of cardiac stents. - Related Data Home Medications Medication Instructions Recorded Confirmed RX: Aspirin 81 mg PO DAILY 05/17/15 02/13/18 RX: Doxepin [Sinequan] 25 mg PO BID 05/17/15 02/13/18 RX: Albuterol Sulfate [Ventolin 2 puff IH Q4H PRN 07/23/17 02/13/18 Hfa] RX: Atorvastatin Calcium [Lipitor] 20 mg PO HS 07/23/17 02/13/18 RX: Buspirone HCl [Buspar] 10 mg PO BID 07/23/17 07/23/17 RX: Carvedilol 12.5 mg PO BID 07/23/17 02/13/18 RX: Citalopram Hydrobromide 40 mg PO QPM 07/23/17 02/13/18 [Citalopram HBr] RX: Lansoprazole [Prevacid] 30 mg PO DAILY 07/23/17 02/13/18 RX: Ropinirole HCl [Requip] 0.5 mg PO DAILY 07/23/17 02/13/18 Previous Rx's Medication Instructions Recorded RX: Ciprofloxacin [Cipro] 500 mg PO BID #5 tablet 08/06/17 RX: Haloperidol Oral Conc [Haldol] 2 mg PO TID PRN udc 08/06/17 RX: Magnesium Oxide [Magnesium] 400 mg PO DAILY #10 tablet 08/06/17 RX: risperiDONE [RisperDAL] 0.25 mg PO BID PRN tablet 08/06/17 RX: Tizanidine HCl 4 mg PO TID PRN #15 tablet 02/13/18 methylPREDNISolone [Medrol] 4 mg PO DAILY #1 pack 02/13/18 Allergies Allergy/AdvReac Type Severity Reaction Status Date / Time Buspirone [From BuSpar] Allergy Hives Verified 02/13/18 09:19 All systems ED: reviewed and negative except as stated. Constitutional: Denies: fever Cardiovascular: Reports: chest pain Respiratory: Reports: dyspnea Gastrointestinal: Denies: abdominal pain, nausea, vomiting, diarrhea Integumentary: Denies: rash Neurological: Denies: headache, weakness, numbness Chest Pain PMH - Past Medical History Medical history: Reports: non-contributory, hypertension Psychiatric history: Reports: anxiety, bipolar, depression, panic disorder, PTSD, schizophrenia - Social History Smoking Status: Current every day smoker Alcohol use: Reports: occasionally Drug use: Reports: other Physical Exam - General Limitations: no limitations General appearance: alert, other (Anxious and crying) - Head Head exam: atraumatic, normocephalic, normal inspection - Eye Eye exam: Present: normal appearance, PERRL, EOMI - ENT ENT exam: normal exam, normal oropharynx, mucous membranes moist - Neck Neck exam: Present: normal inspection, full ROM, trachea midline - Chest Chest inspection: Present: normal inspection, symmetric chest wall rise - Respiratory Respiratory exam: Present: normal lung sounds bilaterally - Cardiovascular Cardiovascular exam: Present: regular rate, normal rhythm, normal heart sounds - Abdominal Exam Abdominal exam: Present: soft, Non-Tender. Absent: tenderness, distention, guarding, rebound, rigidity - Extremities Exam Extremities exam: Present: normal inspection, full ROM. Absent: tenderness, pedal edema - Neurological Exam Neurological exam: Present: alert, oriented X3 - Psychiatric Psychiatric exam: Present: anxious - Skin Skin exam: Present: warm, dry, intact, normal color Course Course Narrative: Patient already received aspirin 325 in route via EMS. We will give the patient another dose of nitroglycerin to see if this will help with this discomfort. EKG, chest x-ray, troponin ordered. Assuming troponin is negative, patient would have a heart score of at least 3. We will sign out patient to day team for further care and disposition with recommendation of likely admission for further trending troponins. Vital Signs Temperature 98.5 F 07/27/18 06:25 Pulse Rate 104 07/27/18 06:25 Respiratory Rate 22 07/27/18 06:25 Blood Pressure 142/84 07/27/18 06:25 O2 Sat by Pulse Oximetry 94 07/27/18 06:25 Temperature 98.5 F 07/27/18 06:25 Pulse Rate 101 07/27/18 06:39 Respiratory Rate 20 07/27/18 06:39 Blood Pressure 146/91 07/27/18 06:39 O2 Sat by Pulse Oximetry 94 07/27/18 06:25 Oxygen Delivery Oxygen Delivery Room Air Chest Pain - MDM Narrative Medical decision making narrative: Patient already received aspirin 325 in route via EMS. We will give the patient another dose of nitroglycerin to see if this will help with this discomfort. EK G, chest x-ray, troponin ordered. Assuming troponin is negative, patient would have a heart score of at least 3. We will sign out patient to day team for further care and disposition with recommendation of likely admission for further trending troponins. - Medical Records Medical records reviewed: Yes I reviewed the patient's medical records. - Lab Data Result diagrams: 07/27/18 06:33 07/27/18 06:33 Lab Results 07/27/18 07/27/18 07/27/18 Range/Units 06:33 06:33 06:33 WBC 6.5 (4.3-11.1) K/mcL RBC 4.22 (4.19-5.50) M/mcL Hgb 13.7 (12.9-16.9) g/dL Hct 39.2 (37.5-50.1) % MCV 92.9 (83.0-100.0) fL MCH 32.5 (28.0-33.3) pg MCHC 34.9 (31.6-35.5) g/dL RDW 13.1 (11.5-14.5) % Plt Count 53 L (140-400) K/mcL MPV 11.0 (9.4-12.4) fL Immature Gran % 0.2 (0-4) % Seg Neutrophils % 62.4 % Lymphocytes % 22.3 % Monocytes % 13.1 % Eosinophils % 1.5 % Basophils % 0.5 % Neutrophils # 4.1 (1.6-8.9) K/mcL Lymphocytes # 1.5 (0.6-4.6) K/mcL Monocytes # 0.9 (0.0-1.3) K/mcL Eosinophils # 0.1 (0.0-0.6) K/mcL Basophils # 0.0 (0.0-0.2) K/mcL Platelet Estimate Slight Decrease L (Normal) Immature Plt Fraction 4.3 (1.1-6.1) % PT 12.6 H (9.4-12.1) Seconds INR 1.1 APTT 33.9 (26.0-36.0) Seconds Sodium 137 (136-145) mEq/L Potassium 4.8 (3.5-5.1) mEq/L Chloride 113 H (98-107) mEq/L Carbon Dioxide 19 L (23-29) mEq/L BUN 16 (8-23) mg/dL Creatinine 1.42 H (0.70-1.30) mg/dL Est GFR ( Amer) > 60 (> 60) Est GFR (Non-Af Amer) 51 L (> 60) BUN/Creatinine Ratio 11 (6-26) Glucose 130 H (70-105) mg/dL Calculated Osmolality 287 (280-300) Calcium 9.0 (8.6-10.3) mg/dL Heart Score - Score History: Moderately Suspicious EKG: Normal Age: 45-65 Risk Factors: 1-2 risk factors Troponin: Less than normal limit HEART Score Total: 3 S.B.A.R. - S.B.A.R. Situation: Demographics, MOA Background: Presenting Complaint, Relevant PMH, Meds, & Allergies Assessment: Vital Signs, Course and respsone to treatment, Exam Concerns, Patient/Family Expectation, Pertinant Lab Results Recommendation: Barrier(s) to disposition, Recommendation based on pending studies, treatments, or consults S.B.A.R. Report Given to: Dr. Connor Clark and Dr. Faith Attestation Statement - Attestation Attestation: Resident Attestation: I examined this patient and my medical decision making was reviewed with the Resident Physician. I agree with the documented findings, disposition and treatment plan as described except to the extent set forth below . We independently had [id number] contact with the patient. Patient seen with resident physician Dr. Haji. Please see resident note for further details and disposition. Patient presents to the emergency department from home for evaluation of chest pain that feels like crushing pain to the center of his chest. Patient is not had similar symptoms. He does state history of previous cardiac disease. EKG does not show any ST elevations. Patient will receive aspirin nitroglycerin and further evaluation for etiology of chest pain. Regular rhythm, clear to auscultation bilaterally, no significant peripheral edema. Case signed out to Dr. Connelly.
[2018-07-27] MEDS: Nitroglycerin 0.4 MG TAB.SUBL SL PRN ×3 (06:38→19:47)
[2018-07-27 06:50] LABS: Immature Granulocytes % 0.2 % (0-4); Mean Corpuscular Volume 92.9 fL (83.0-100.0); Red Cell Distribution Width 13.1 % (11.5-14.5)
[2018-07-27 06:52] LABS: Basophils % 0.5 %; Eosinophils # 0.1 K/mcL (0.0-0.6); Eosinophils % 1.5 %; Hematocrit 39.2 % (37.5-50.1); Hemoglobin 13.7 g/dL (12.9-16.9); Immature Platelets 4.3 % (1.1-6.1); Lymphocytes # 1.5 K/mcL (0.6-4.6); Lymphocytes % 22.3 %; Mean Corpuscular HGB Conc 34.9 g/dL (31.6-35.5); Mean Corpuscular Hemoglobin 32.5 pg (28.0-33.3); Monocytes # 0.9 K/mcL (0.0-1.3); Monocytes % 13.1 %; Neutrophils # 4.1 K/mcL (1.6-8.9); Red Blood Count 4.22 M/mcL (4.19-5.50); Segmented Neutrophils % 62.4 %
[2018-07-27 06:58] LABS: INR 1.1; Prothrombin Time 12.6 Seconds (9.4-12.1)
[2018-07-27] MEDS ORDERED: *HR* FentaNYL (PF) 100 MCG/2 ML VIAL IVP ONE (06:59)
[2018-07-27 07:01] LABS: Activated Partial Thrombo Time 33.9 Seconds (26.0-36.0)
[2018-07-27 07:12] LABS: Platelet Count 53 K/mcL (140-400)
[2018-07-27 07:13] LABS: Platelet Estimate Slight Decrease (Normal)
[2018-07-27 07:14] LABS: BUN/Creatinine Ratio 11 (6-26); Blood Urea Nitrogen 16 mg/dL (8-23); Carbon Dioxide 19 mEq/L (23-29); Chloride 113 mEq/L (98-107); Glucose 130 mg/dL (70-105); Osmolality,Calculated 287 (280-300); Potassium 4.8 mEq/L (3.5-5.1); Sodium 137 mEq/L (136-145); eGFR For Non-African Americans 51 (> 60)
--- NOTE | 2018-07-27 07:15 | Emergency Department Note ---
Disposition Clinical Impression: Elevated troponin, Non-ST elevation [place] (NSTEMI) Chest pain Qualifiers: Chest pain type: unspecified Qualified Code(s): R07.9 - Chest pain, unspecified Disposition: Admitted As Inpatient Condition: Fair Referrals: NONE,PCP [Primary Care Provider] - Chest Pain HPI - General Chief Complaint: ED Chest Pain Stated Complaint: Chest Pain Time Seen by Provider: 07/27/18 06:26 Source: patient, EMS Mode of arrival: EMS Limitations: no limitations Vital Signs Reviewed: Yes Nursing Notes Reviewed: Yes - History of Present Illness HPI Narrative: Pt is a 63 yo male with PMHx of COPD, Hep C and HTN who presents via EMS after waking from sleep at 3am with "crushing substernal chest pain" that he rated as a 10/10. There was no radiation of pain from his chest, and he denied ever castillo ving chest pain like this before. There is some associated SOB with this chest pain. He received 325mg ASA and a breathing treatment via EMS, and sublingual NTG on arrival to the ED which did not help his pain. Pt complaint: chest pain Onset (ago): unknown (3am) Duration: constant Onset: awoke with symptoms Pain Location: substernal Severity: severe Severity scale (1-10): 9 Quality: tightness Pain Radiation: none Improves with: nothing Worsens with: exertion, movement Associated symptoms: Reports: dyspnea Treatments prior to arrival chest pain: aspirin - Related Data Home Medications Medication Instructions Recorded Confirmed Aspirin 81 mg PO DAILY 05/17/15 02/13/18 Doxepin [Sinequan] 25 mg PO BID 05/17/15 02/13/18 Albuterol Sulfate [Ventolin Hfa] 2 puff IH Q4H PRN 07/23/17 02/13/18 Atorvastatin Calcium [Lipitor] 20 mg PO HS 07/23/17 02/13/18 Buspirone HCl [Buspar] 10 mg PO BID 07/23/17 07/23/17 Carvedilol 12.5 mg PO BID 07/23/17 02/13/18 Citalopram Hydrobromide 40 mg PO QPM 07/23/17 02/13/18 [Citalopram HBr] Lansoprazole [Prevacid] 30 mg PO DAILY 07/23/17 02/13/18 Ropinirole HCl [Requip] 0.5 mg PO DAILY 07/23/17 02/13/18 Previous Rx's Medication Instructions Recorded Ciprofloxacin [Cipro] 500 mg PO BID #5 tablet 08/06/17 Haloperidol Oral Conc [Haldol] 2 mg PO TID PRN udc 08/06/17 Magnesium Oxide [Magnesium] 400 mg PO DAILY #10 tablet 08/06/17 risperiDONE [RisperDAL] 0.25 mg PO BID PRN tablet 08/06/17 Tizanidine HCl 4 mg PO TID PRN #15 tablet 02/13/18 methylPREDNISolone [Medrol] 4 mg PO DAILY #1 pack 02/13/18 Allergies Allergy/AdvReac Type Severity Reaction Status Date / Time Buspirone [From BuSpar] Allergy Hives Verified 02/13/18 09:19 All systems ED: reviewed and negative except as stated. Review of Systems: As Per HPI Constitutional: Denies: fever Cardiovascular: Reports: chest pain Respiratory: Reports: dyspnea Gastrointestinal: Denies: abdominal pain, nausea, vomiting, diarrhea Integumentary: Denies: rash Neurological: Denies: headache, weakness, numbness Chest Pain PMH - Past Medical History Medical history: Reports: non-contributory, hypertension Psychiatric history: Reports: anxiety, bipolar, depression, panic disorder, PTSD, schizophrenia - Social History Smoking Status: Current every day smoker Alcohol use: Reports: occasionally Drug use: Reports: other Physical Exam - General Limitations: no limitations General appearance: alert, other (Anxious and crying) Course Vital Signs Temperature 98.5 F 07/27/18 06:25 Pulse Rate 104 07/27/18 06:25 Respiratory Rate 22 07/27/18 06:25 Blood Pressure 142/84 07/27/18 06:25 O2 Sat by Pulse Oximetry 94 07/27/18 06:25 Temperature 98.5 F 07/27/18 06:25 Pulse Rate 99 07/27/18 08:06 Respiratory Rate 20 07/27/18 08:06 Blood Pressure 143/87 07/27/18 08:06 O2 Sat by Pulse Oximetry 96 07/27/18 08:07 Oxygen Delivery Oxygen Delivery Nasal Cannula Chest Pain - MDM Narrative Medical decision making narrative: Pt was received in sign out from Dr. Haji at 0700. Awaiting BMP and troponin. Pt was given fentanyl for reduction of pain 0755 - Troponin came back elevated at 0.21. Repeat EKG ordered and pending. D- dimer ordered due to pts tachycardia to rule out PE. 0815 - Repeat EKG showed sinus rhythm with possible inferior lead elevation. D- dimer was elevated, awaiting CTA chest results. Cardiology paged due to the patient's EKG and elevated troponin. 08 - Dr. Aguilera has been informed of the pt hx and was sent the patient's EKGs. 09 - CTA was negative for PE. Due to the patient's continuing chest pain and elevated troponin, cardiology will take the patient to [facility]. Pt will be admitted to the hospital - hospitalist has been paged and Dr. Degroot has accepted the patient. - Medical Records Medical records reviewed: Yes I reviewed the patient's medical records. - Lab Data Lab results reviewed: Yes I reviewed the patient's lab results. Result diagrams: 07/27/18 06:33 07/27/18 06:33 Lab Results 07/27/18 07/27/18 07/27/18 Range/Units 06:33 06:33 06:33 WBC 6.5 (4.3-11.1) K/mcL RBC 4.22 (4.19-5.50) M/mcL Hgb 13.7 (12.9-16.9) g/dL Hct 39.2 (37.5-50.1) % MCV 92.9 (83.0-100.0) fL MCH 32.5 (28.0-33.3) pg MCHC 34.9 (31.6-35.5) g/dL RDW 13.1 (11.5-14.5) % Plt Count 53 L (140-400) K/mcL MPV 11.0 (9.4-12.4) fL Immature Gran % 0.2 (0-4) % Seg Neutrophils % 62.4 % Lymphocytes % 22.3 % Monocytes % 13.1 % Eosinophils % 1.5 % Basophils % 0.5 % Neutrophils # 4.1 (1.6-8.9) K/mcL Lymphocytes # 1.5 (0.6-4.6) K/mcL Monocytes # 0.9 (0.0-1.3) K/mcL Eosinophils # 0.1 (0.0-0.6) K/mcL Basophils # 0.0 (0.0-0.2) K/mcL Platelet Estimate Slight Decrease L (Normal) Immature Plt Fraction 4.3 (1.1-6.1) % PT 12.6 H (9.4-12.1) Seconds INR 1.1 APTT 33.9 (26.0-36.0) Seconds D-Dimer 723 H (0-500) ng/mLFEU Heparin Anti-Xa, LM Wt (0.50-1.10) IU/mL Sodium 137 (136-145) mEq/L Potassium 4.8 (3.5-5.1) mEq/L Chloride 113 H (98-107) mEq/L Carbon Dioxide 19 L (23-29) mEq/L BUN 16 (8-23) mg/dL Creatinine 1.42 H (0.70-1.30) mg/dL Est GFR ( Amer) > 60 (> 60) Est GFR (Non-Af Amer) 51 L (> 60) BUN/Creatinine Ratio 11 (6-26) Glucose 130 H (70-105) mg/dL Calculated Osmolality 287 (280-300) Calcium 9.0 (8.6-10.3) mg/dL Troponin I 0.21 H* (< 0.04) ng/mL 07/27/18 Range/Units 09:06 WBC (4.3-11.1) K/mcL RBC (4.19-5.50) M/mcL Hgb (12.9-16.9) g/dL Hct (37.5-50.1) % MCV (83.0-100.0) fL MCH (28.0-33.3) pg MCHC (31.6-35.5) g/dL RDW (11.5-14.5) % Plt Count (140-400) K/mcL MPV (9.4-12.4) fL Immature Gran % (0-4) % Seg Neutrophils % % Lymphocytes % % Monocytes % % Eosinophils % % Basophils % % Neutrophils # (1.6-8.9) K/mcL Lymphocytes # (0.6-4.6) K/mcL Monocytes # (0.0-1.3) K/mcL Eosinophils # (0.0-0.6) K/mcL Basophils # (0.0-0.2) K/mcL Platelet Estimate (Normal) Immature Plt Fraction (1.1-6.1) % PT (9.4-12.1) Seconds INR APTT (26.0-36.0) Seconds D-Dimer (0-500) ng/mLFEU Heparin Anti-Xa, LM Wt 0.00 L (0.50-1.10) IU/mL Sodium (136-145) mEq/L Potassium (3.5-5.1) mEq/L Chloride (98-107) mEq/L Carbon Dioxide (23-29) mEq/L BUN (8-23) mg/dL Creatinine (0.70-1.30) mg/dL Est GFR ( Amer) (> 60) Est GFR (Non-Af Amer) (> 60) BUN/Creatinine Ratio (6-26) Glucose (70-105) mg/dL Calculated Osmolality (280-300) Calcium (8.6-10.3) mg/dL Troponin I (< 0.04) ng/mL - Radiology Data Radiology results reviewed: Yes I reviewed the patient's radiology results. Heart Score - Score History: Moderately Suspicious EKG: Normal Age: 45-65 Risk Factors: 1-2 risk factors Troponin: Greater than 3x normal limit HEART Score Total: 5
[2018-07-27 07:54] LABS: Troponin I 0.21 ng/mL (< 0.04)
--- NOTE | 2018-07-27 08:00 | Emergency Department Note ---
Disposition Clinical Impression: Elevated troponin, Non-ST elevation [place] (NSTEMI) Chest pain Qualifiers: Chest pain type: unspecified Qualified Code(s): R07.9 - Chest pain, unspecified Disposition: Still a Patient Condition: Fair Referrals: NONE,PCP [Primary Care Provider] - Forms: ED Satisfaction Letter General Adult HPI - General Chief complaint: ED Chest Pain Stated complaint: Chest Pain Time Seen by Provider: 07/27/18 06:26 Source: patient, EMS Mode of arrival: EMS Limitations: no limitations - History of Present Illness Pain Scale: 9 - Related Data Home Medications Medication Instructions Recorded Confirmed Aspirin 81 mg PO DAILY 05/17/15 02/13/18 Doxepin [Sinequan] 25 mg PO BID 05/17/15 02/13/18 Albuterol Sulfate [Ventolin Hfa] 2 puff IH Q4H PRN 07/23/17 02/13/18 Atorvastatin Calcium [Lipitor] 20 mg PO HS 07/23/17 02/13/18 Buspirone HCl [Buspar] 10 mg PO BID 07/23/17 07/23/17 Carvedilol 12.5 mg PO BID 07/23/17 02/13/18 Citalopram Hydrobromide 40 mg PO QPM 07/23/17 02/13/18 [Citalopram HBr] Lansoprazole [Prevacid] 30 mg PO DAILY 07/23/17 02/13/18 Ropinirole HCl [Requip] 0.5 mg PO DAILY 07/23/17 02/13/18 Previous Rx's Medication Instructions Recorded Ciprofloxacin [Cipro] 500 mg PO BID #5 tablet 08/06/17 Haloperidol Oral Conc [Haldol] 2 mg PO TID PRN udc 08/06/17 Magnesium Oxide [Magnesium] 400 mg PO DAILY #10 tablet 08/06/17 risperiDONE [RisperDAL] 0.25 mg PO BID PRN tablet 08/06/17 Tizanidine HCl 4 mg PO TID PRN #15 tablet 02/13/18 methylPREDNISolone [Medrol] 4 mg PO DAILY #1 pack 02/13/18 Allergies Allergy/AdvReac Type Severity Reaction Status Date / Time Buspirone [From BuSpar] Allergy Hives Verified 02/13/18 09:19 Constitutional: Denies: fever Cardiovascular: Reports: chest pain Respiratory: Reports: dyspnea Gastrointestinal: Denies: abdominal pain, nausea, vomiting, diarrhea Integumentary: Denies: rash Neurological: Denies: headache, weakness, numbness Past Medical History - Past Medical History Medical history: Reports: non-contributory, hypertension Psychiatric history: Reports: anxiety, bipolar, depression, panic disorder, PTSD, schizophrenia - Social History Smoking Status: Current every day smoker Smokeless Tobacco Status: No Alcohol use: Reports: occasionally Drug use: Reports: other Physical Exam - General Limitations: no limitations General appearance: alert, other (Anxious and crying) Course Vital Signs Temperature 98.5 F 07/27/18 06:25 Pulse Rate 104 07/27/18 06:25 Respiratory Rate 22 07/27/18 06:25 Blood Pressure 142/84 07/27/18 06:25 O2 Sat by Pulse Oximetry 94 07/27/18 06:25 Temperature 98.5 F 07/27/18 06:25 Pulse Rate 98 07/27/18 07:19 Respiratory Rate 22 07/27/18 07:19 Blood Pressure 129/86 07/27/18 07:19 O2 Sat by Pulse Oximetry 95 07/27/18 07:19 Oxygen Delivery Oxygen Delivery Nasal Cannula Medical Decision Making - Lab Data Result diagrams: 07/27/18 06:33 07/27/18 06:33 Lab Results 07/27/18 07/27/18 07/27/18 Range/Units 06:33 06:33 06:33 WBC 6.5 (4.3-11.1) K/mcL RBC 4.22 (4.19-5.50) M/mcL Hgb 13.7 (12.9-16.9) g/dL Hct 39.2 (37.5-50.1) % MCV 92.9 (83.0-100.0) fL MCH 32.5 (28.0-33.3) pg MCHC 34.9 (31.6-35.5) g/dL RDW 13.1 (11.5-14.5) % Plt Count 53 L (140-400) K/mcL MPV 11.0 (9.4-12.4) fL Immature Gran % 0.2 (0-4) % Seg Neutrophils % 62.4 % Lymphocytes % 22.3 % Monocytes % 13.1 % Eosinophils % 1.5 % Basophils % 0.5 % Neutrophils # 4.1 (1.6-8.9) K/mcL Lymphocytes # 1.5 (0.6-4.6) K/mcL Monocytes # 0.9 (0.0-1.3) K/mcL Eosinophils # 0.1 (0.0-0.6) K/mcL Basophils # 0.0 (0.0-0.2) K/mcL Platelet Estimate Slight Decrease L (Normal) Immature Plt Fraction 4.3 (1.1-6.1) % PT 12.6 H (9.4-12.1) Seconds INR 1.1 APTT 33.9 (26.0-36.0) Seconds Sodium 137 (136-145) mEq/L Potassium 4.8 (3.5-5.1) mEq/L Chloride 113 H (98-107) mEq/L Carbon Dioxide 19 L (23-29) mEq/L BUN 16 (8-23) mg/dL Creatinine 1.42 H (0.70-1.30) mg/dL Est GFR ( Amer) > 60 (> 60) Est GFR (Non-Af Amer) 51 L (> 60) BUN/Creatinine Ratio 11 (6-26) Glucose 130 H (70-105) mg/dL Calculated Osmolality 287 (280-300) Calcium 9.0 (8.6-10.3) mg/dL Troponin I 0.21 H* (< 0.04) ng/mL Critical Care Time Critical Care Time: No Attestation Statement - Attestation Attestation: I examined this patient and my medical decision-making was reviewed with the Resident Physician. I agree with the documented findings, disposition and treatment plan as described except to the extent set forth below. 63-year-old male in presented to emergency room for chest pain. Chest pain was not relieved with nitroglycerin. Aspirin was given. EKG did not show any signs of any ST elevation. Patient's troponin came back at 0.21. Chest x-ray was stable. We will add on a d-dimer. It appears as he is having a non-ST elevation NM. Patient will need to be admitted. Again asked was ready given. We will start him on heparin most likely pending the d-dimer result and the possible need for CTA of the chest. This case was signed out to me by Dr. Haider from the laundry housekeeper. Plan was to follow-up the labs and admit to the hospitalist.
[2018-07-27] MEDS ORDERED: Isovue-370 500 ML INFUS..BTL IV ONE (08:05)
[2018-07-27] MEDS ORDERED: *HR* Heparin 5,000 UNIT/ML VIAL IVP ONE (08:43)
[2018-07-27] MEDS ORDERED: *HR* Metoprolol 5 MG/5 ML VIAL IVP ONE (08:47)
[2018-07-27] MEDS ORDERED: *HR* Heparin 5,000 UNIT/ML VIAL IVP PRN ×2 (09:17)
--- NOTE | 2018-07-27 09:23 | Cardiology Consult Note ---
<Awilda Aguilera - Last Filed: 07/27/18 11:18> Date of Encounter: 07/27/18 - Attending Attestation I have personally performed a face to face evaluation on this patient. I have reviewed and agree with the care plan. History and Exam by me shows: 63 YOM with HepC and thrombocytopenia along with multiple comorbidities here with ongoing chest pain, ST changes suggestive of ischemia. [facility] R/B/A d/w patint and he agrees to proceed. Compliance with medications was discussed with patient in detail and he agrees to take all his meds. Assessment and Plan Discussion w patient/family: The assessment and plan as outlined above was discussed with the patient and/or family members who expressed understanding and agreement. All questions were answered. Thank you for involving us in the care of your patient. Please call with any questions. History of Present Illness History of present illness: Mr. Durand is a 63 year old male Medications and Allergies Aspirin 81 mg PO DAILY 05/17/15 [History] Doxepin [Sinequan] 25 mg PO BID 05/17/15 [History] Albuterol Sulfate [Ventolin Hfa] 2 puff IH Q4H PRN 07/23/17 [History] Atorvastatin Calcium [Lipitor] 20 mg PO HS 07/23/17 [History] Buspirone HCl [Buspar] 10 mg PO BID 07/23/17 [History] Carvedilol 12.5 mg PO BID 07/23/17 [History] Citalopram Hydrobromide [Citalopram HBr] 40 mg PO QPM 07/23/17 [History] Lansoprazole [Prevacid] 30 mg PO DAILY 07/23/17 [History] Ropinirole HCl [Requip] 0.5 mg PO DAILY 07/23/17 [History] Ciprofloxacin [Cipro] 500 mg PO BID #5 tablet 08/06/17 [Rx] Haloperidol Oral Conc [Haldol] 2 mg PO TID PRN udc 08/06/17 [Rx] Magnesium Oxide [Magnesium] 400 mg PO DAILY #10 tablet 08/06/17 [Rx] risperiDONE [RisperDAL] 0.25 mg PO BID PRN tablet 08/06/17 [Rx] Tizanidine HCl 4 mg PO TID PRN #15 tablet 02/13/18 [Rx] methylPREDNISolone [Medrol] 4 mg PO DAILY #1 pack 02/13/18 [Rx] Allergy/AdvReac Type Severity Reaction Status Date / Time Buspirone [From BuSpar] Allergy Hives Verified 02/13/18 09:19 All Systems Review: The remainder of the systems were reviewed and are negative Physical Examination Vital Signs, Last 4 Hours Pulse Resp BP Pulse Ox 07/27/18 08:07 96 07/27/18 08:06 99 20 143/87 96 07/27/18 07:19 98 22 129/86 95 Results 07/27/18 06:33 07/27/18 06:33 Lab Results 07/27/18 07/27/18 07/27/18 06:33 06:33 06:33 WBC 6.5 Hgb 13.7 Hct 39.2 Plt Count 53 L INR 1.1 APTT 33.9 D-Dimer 723 H Sodium 137 Potassium 4.8 Chloride 113 H Carbon Dioxide 19 L BUN 16 Creatinine 1.42 H Glucose 130 H Calcium 9.0 Troponin I 0.21 H* Consult Discharge Plan - Plan Referrals: NONE,PCP [Primary Care Provider] - <Lucho Pablo - Last Filed: 07/27/18 13:05> Date of Encounter: 07/27/18 Time of Encounter: 09:10 Assessment and Plan (1) Non-ST elevation [place] (NSTEMI) Current Visit: Yes Status: Acute EKG shows SR with borderline ST elevation in AVR and mild recipricol changes. Reviewed with Dr. Aguilera, EKG does not meet STEMI criteria. Troponin 0.21. Pt continues to have chest pain that is not relieved with NTG. CTA was negative for PE but showed severe LAD disease. [facility] recommended for further evaluation. R/B/A of C reviewed. Heparin gtt recommended. Start NTG gtt for chest pain. Asa, statin, and bb. Noted Plt are chronically low. Pt denies history or work-up. Mat need hematology consult. Start IV fluid jarred-procedure for baseline CKD. (2) CAD (coronary artery disease) Current Visit: Yes Status: Chronic Qualifiers: Qualified Code(s): I25.110 - Atherosclerotic heart disease of [place] coronary artery with unstable angina pectoris (3) Thrombocytopenia Current Visit: Yes Status: Chronic Noted PLT 52. Appears to be chronic. He does have hc of prior heavy ETOH use per reports. Pt reports he is taking asa daily. Consider hematology consult. Discussion w patient/family: The assessment and plan as outlined above was discussed with the patient and/or family members who expressed understanding and agreement. All questions were answered. Thank you for involving us in the care of your patient. Please call with any questions. History of Present Illness Consult date: 07/27/18 Requesting physician: Renard Connelly Consult reason: Chest pain, abnormal Chief complaint: Chest pain and difficulty breathing. History of present illness: Mr. Durand is a 63 year old male with past medical history significant for moderate non-obstructive CAD on [facility] in 2015, HTN, CKD, hepatitis C, bipolar disorder, tobacco abuse and prior heavy ETOH use. He c/o mid-sternal chest pressure radiating to his neck waking him from his sleep at 3:00 am. C/o difficulty catching his breath. He called EMS two hours later when he did not feel better. Denies chest pain leading up to the event. He was given 2 SL NTG in the ED with no relief. Troponin found to be elevated at 0.21 and borderline EKG changes in the inferior lead seen. EKG was reviewed with interventionalist and he did not meet STEMI criteria. Prior cardiac testing: TTE 2017-LVEF 70%. Normal LV chamber size, wall thickness and function. Normal right ventricular structure and function. Moderately dilated left atrium. Moderately dilated right atrium. Mild tricuspid regurgitation. Mild pulmonary hypertension. [facility] 2014- moderate 3 vessel CAD. LMCA free of disease. 50% mLAD stenosis, 40% 2nd Dx stenosis, 99% 1st om, small vessel. 30% mRCA stenosis, 40% dRCA stenosis, 30% rPDA stenosis. Past Med Surg Social Fam HX - Past Medical History Medical history: coronary artery disease, hypertension, other (Hepatitis C) Psychiatric history: anxiety, bipolar, depression, panic disorder, PTSD, schizophrenia - Past Surgical History Additional surgical history: RT KNEE REPLACEMENT, LIVER BX. - Social History Smoking Status: Current every day smoker Smokeless Tobacco Status: No Alcohol use: occasionally Drug use: other All Systems Review: The remainder of the systems were reviewed and are negative Physical Examination Vital Signs, Last 4 Hours Temp Pulse Resp BP Pulse Ox 07/27/18 08:07 96 07/27/18 08:06 99 20 143/87 96 07/27/18 07:19 98 22 129/86 95 07/27/18 06:39 101 20 146/91 07/27/18 06:25 98.5 F 104 22 142/84 94 General: Conversant, No Apparent Distress, Other (pale appearing) HEENT: Atraumatic, Normocephaly, Mucus Membranes Moist Neck: No JVD, Normal carotid pulses Cardiac: Reg Rate and Rhythm, Normal S1 and S2, No Murmur Lungs: Normal Breath Sounds, No Wheeze, Rales, Rhonchi Neuro: Alert and responsive, No focal deficits noted Abdomen: Soft, Non-Tender Skin: No rashes noted on visualized skin Musculoskeletal: No Chest Wall Tenderness Extremities: No Clubbing, No Cyanosis, No Edema, Normal Pulses Results 07/27/18 06:33 07/27/18 06:33 Lab Results 07/27/18 07/27/18 07/27/18 06:33 06:33 06:33 WBC 6.5 Hgb 13.7 Hct 39.2 Plt Count 53 L INR 1.1 APTT 33.9 D-Dimer 723 H Sodium 137 Potassium 4.8 Chloride 113 H Carbon Dioxide 19 L BUN 16 Creatinine 1.42 H Glucose 130 H Calcium 9.0 Troponin I 0.21 H* - Imaging and Cardiology Echo: report reviewed Cardiac cath: report reviewed - EKG Interpretation EKG results cardiology: personally reviewed
[2018-07-27] MEDS ORDERED: Heparin 25,000 UNIT/500 ML D5W 25,000 UNIT/500 ML BAG IVC SCH (09:30)
[2018-07-27] MEDS ORDERED: Nitroglycerin 25 MG/250 ML INFUS..BTL IVC SCH (09:30)
--- NOTE | 2018-07-27 09:33 | Pre-Sedation Evaluation ---
Pre-sedation evaluation - Pre-sedation checklist Date of procedure: 07/27/18 Procedure: LHC Recent Vitals: Last Vital Signs Temp 98.5 F 07/27/18 06:25 Pulse 99 07/27/18 08:06 Resp 20 07/27/18 08:06 BP 143/87 07/27/18 08:06 Pulse Ox 96 07/27/18 08:07 ASA Classification *see protocol: CLASS II-Mild systemic disease Cardiac Registry (Cardio Only) - Functional Capacity Functional Capacity: >=4 METS with symptoms - Clincal Frailty Scale Clinical Frailty Scale: Vulnerable
[2018-07-27] MEDS ORDERED: *HR* Midazolam HCl 2 MG/2 ML VIAL ONE (09:36)
[2018-07-27] MEDS ORDERED: *HR* FentaNYL (PF) 100 MCG/2 ML VIAL ONE (09:37)
[2018-07-27] MEDS ORDERED: Tirofiban 12.5 MG/250ML 12.5 MG/250 ML BAG ONE (09:59)
[2018-07-27] MEDS ORDERED: ISOVUE-370 200 ML INFUS..BTL ONE ×2 (10:04→10:53)
[2018-07-27] MEDS ORDERED: *HR* Heparin 10,000 UNIT/10 ML VIAL ONE (10:53)
[2018-07-27] MEDS ORDERED: 0.9 % Sodium Chloride 1,000 ML ONE ×2 (10:53→10:54)
[2018-07-27] MEDS ORDERED: Nitroglycerin 1,000 MCG/10 ML VIAL IV ONE (10:53)
[2018-07-27] MEDS ORDERED: Heparin 1,000 UNITS/500 mL 500 ML ONE (10:53)
[2018-07-27] MEDS ORDERED: Tirofiban 12.5 MG/250ML 12.5 MG/250 ML BAG IVC SCH (11:15)
[2018-07-27] MEDS ORDERED: Naloxone 0.4 MG/ML INJ IVP PRN (11:55)
--- NOTE | 2018-07-27 12:00 | Internal Med History&Physical ---
Date of Encounter: 07/27/18 Time of Encounter: 12:44 Internal Medicine - H&P: HPI Chief complaint: Chest pain Admitted From: Home Plans for Post Hospital Care: Home History of present illness: Mr. Durand is a 63 year old male with medical history of alcohol abuse, CKD, Chronic hep C. schizophrenia was woken up suddenly in the early hours of today with severe retrosternal chest pain radiating to his left arm and jaw, pain said to be 8/10, associated with diaphoresis and shortness of breath. 2 SL NTG did not relieve his CP in the ER nd he was started on a nitroglycerin drip. he has significnat cardiac history with hx of moderate non-obstructive CAD from [facility] in 2014 He was immediately taken to the radiographer cardiac catheterization by Cardiology when initial trop was 0.21 in the ER, EKG showed ST elevation and repolarization changes which cardio did not deem to STEMI he was seen on the floor post-cath and continues to complain of chest pain. He states his chest pain is now 7/10 and non-radiating, [facility] report is pending on chart, but patient is on aggrasta. he is hemodynamicaly stable at this time and he is able to lay flat without respiratory distress. He denies n/v/diarrhea, no abdominal pain, no changes in urinary or bowel castillo bits. He also has a history of chronic thrombocytopenia likely due to alcohol use in the past, however, due to new stent placement on heparin infusion with dual antiplatelet therapy we will consult oncology for recommendations The patient is full code, he is high risk for further cardiac decompensation, he is very high risk for bleeding due to duodenal antiplatelet therapy on Aggrastat infusion Past Med Surg Social Fam HX - Past Medical History Medical history: non-contributory, hypertension Psychiatric history: anxiety, bipolar, depression, panic disorder, PTSD, schizophrenia - Past Surgical History Additional surgical history: RT KNEE REPLACEMENT, LIVER BX. - Social History Smoking Status: Current every day smoker Smokeless Tobacco Status: No Alcohol use: occasionally Drug use: other Internal Medicine - H&P: Meds Aspirin 81 mg PO DAILY 05/17/15 [History] Doxepin [Sinequan] 25 mg PO BID 05/17/15 [History] Albuterol Sulfate [Ventolin Hfa] 2 puff IH Q4H PRN 07/23/17 [History] Atorvastatin Calcium [Lipitor] 20 mg PO HS 07/23/17 [History] Buspirone HCl [Buspar] 10 mg PO BID 07/23/17 [History] Carvedilol 12.5 mg PO BID 07/23/17 [History] Citalopram Hydrobromide [Citalopram HBr] 40 mg PO QPM 07/23/17 [History] Lansoprazole [Prevacid] 30 mg PO DAILY 07/23/17 [History] Ropinirole HCl [Requip] 0.5 mg PO DAILY 07/23/17 [History] Ciprofloxacin [Cipro] 500 mg PO BID #5 tablet 08/06/17 [Rx] Haloperidol Oral Conc [Haldol] 2 mg PO TID PRN udc 08/06/17 [Rx] Magnesium Oxide [Magnesium] 400 mg PO DAILY #10 tablet 08/06/17 [Rx] risperiDONE [RisperDAL] 0.25 mg PO BID PRN tablet 08/06/17 [Rx] Tizanidine HCl 4 mg PO TID PRN #15 tablet 02/13/18 [Rx] methylPREDNISolone [Medrol] 4 mg PO DAILY #1 pack 02/13/18 [Rx] Allergy/AdvReac Type Severity Reaction Status Date / Time Buspirone [From BuSpar] Allergy Hives Verified 02/13/18 09:19 All Systems PM: A 10-system review of systems was performed and is negative for pertinent findings except as documented above in the HPI. - Constitutional Constitutional: no chills, no fever(s), no night sweats - EENT Eyes: no change in vision, no discharge, no pain, no photophobia Ears: no ear discharge, no ear pain, no tinnitus Nose, mouth and throat: no dysphagia, no nasal discharge, no neck pain, no sore throat - Cardiovascular Cardiovascular ROS IM: as per HPI - Respiratory Respiratory: as per HPI - Gastrointestinal Gastrointestinal: as per HPI - Musculoskeletal Musculoskeletal ROS IM: as per HPI - Integumentary Integumentary IM: as per HPI - Neurological Neurological ROS: no confusion, no convulsions, no focal weakness, no numbness, no tingling, no tremor(s) - Hematologic/Lymphatic Hematologic/Lymphatic: no easy bruising - Constitutional Vitals: Temp Pulse Resp BP Pulse Ox 98.2 F 90 16 133/85 93 07/27/18 11:45 07/27/18 11:45 07/27/18 11:45 07/27/18 11:45 07/27/18 11:23 Exam: Vital signs noted, stable. Gen: Calm, in mild painful distress, speaks full sentences HEENT: Moist oral mucosa, sclera anicteric, not pale Chest: Equal chest movement bilaterally REsp: CTAB, no wheezing, no rhonchi, no rales Heart: S1, S2, only, no m/g/r Abdomen: Soft, not tender, BS present in al quadrants Extremities: Right groin with dressing soaked, no hematoma, right lower extremity is neurovascularly intact distally. Joint inspection is WNL, no pedal edema, pulses present bilaterally Neuro: AAOX3, no speech deficits, moves all extremities equally, no facial paralysis Psych: Affect is appropriate Internal Med - H&P Results - Labs CBC & Chem 7: 07/27/18 06:33 07/27/18 06:33 Labs: Short CBC 07/27/18 Range/Units 06:33 WBC 6.5 (4.3-11.1) K/mcL Hgb 13.7 (12.9-16.9) g/dL Hct 39.2 (37.5-50.1) % Plt Count 53 L (140-400) K/mcL Neutrophils # 4.1 (1.6-8.9) K/mcL BMP 07/27/18 06:33 Sodium 137 Potassium 4.8 Chloride 113 H Carbon Dioxide 19 L BUN 16 Creatinine 1.42 H Glucose 130 H Calcium 9.0 Cardiac Enzymes 07/27/18 Range/Units 06:33 Troponin I 0.21 H* (< 0.04) ng/mL - Impressions ITS Impressions Chest X-Ray 07/27/18 06:26 IMPRESSION: Mild bibasilar atelectasis. No acute cardiopulmonary process. D/ / 07/27/2018 07:24:56 Derek Valentino MD / andi Interpreting Provider: Derek Valentino MD Chest CTA 07/27/18 08:05 IMPRESSION: No evidence of pulmonary embolism or acute pulmonary abnormality. Mild dependent atelectasis. Heavy calcification the LAD. D/ / Gavin Shaw MD / Gavin Shaw MD Interpreting Provider: Gavin Shaw MD - Assessment and plan (1) Non-ST elevation LA (NSTEMI) Current Visit: Yes Status: Acute Assessment and plan: Patient with moderate coronary artery disease history, active tobacco use, who presented with typical cardiac chest pain Initial EKG with ST elevation, and poor repolarization Status post left heart catheter [facility] report shows one-vessel coronary artery disease, patient is status post PTCA in the mid OM, Continue Aggrastat per cardiology Continue aspirin and Plavix Continue Lipitor Check A1c with morning labs, sublingual nitroglycerin when necessary chest pain, Follow Echo reports CT angiogram does not show pulmonary infiltrates, no pulmonary embolism. Cardiology following Addendum: Patient continues to complain of chest pain, no treated by sublingual nitroglycerin 3, patient was started on nitroglycerin infusion. I consulted cardiology cannot afford, Dr Messer will be reevaluating the patient. Start repeat EKG ordered (2) CAD (coronary artery disease) Current Visit: Yes Status: Chronic Assessment and plan: As above Qualifiers: Coronary Disease-Associated Artery/Lesion type: [place] artery [place] vs. transplanted heart: [place] heart Associated angina: with unstable angina Qualified Code(s): I25.110 - Atherosclerotic heart disease of [place] coronary artery with unstable angina pectoris (3) Schizophrenia Current Visit: Yes Status: Chronic Assessment and plan: Resume home psych meds after confirmation Qualifiers: Schizophrenia type: unspecified Qualified Code(s): F20.9 - Schizophrenia, unspecified (4) Thrombocytopenia Current Visit: Yes Status: Chronic Assessment and plan: Patient with alcohol history and chronic thrombocytopenia Except count in this admission 53 Patient with NSTEMI on Aggrastat, aspirin, Plavix, access site with continuous bleeding Hematology oncology has been consulted for recommendations Type and screen sent We will transfuse for uncontrolled bleeding and PLT or Less than 10.000 Patient is currently hemodynamically stable - Time Spent With Patient Total time spent is greater than 50% in coordination of care (as documented) at patient's floor/unit and/or counseling patient:
--- NOTE | 2018-07-27 14:16 | Invasive Diagnostic Lab Proc ---
Name: Gume Durand Date of Study: 07/27/2018 Date: 1955 Ht: 72.0in Medical Record#: [id number] Age: 63 Wt: 216.05lb Gender: Male BSA: 2.2 Order #: [id number] BMI: 29.26 Physicians Procedure Physician: Awilda Aguilera MD Referring MD: Referring MD: Staff Name Position Time In Emma Encarnacion RN Irrigator 09:33 AM Huey Royal RN Monitor 09:33 AM Christian Dill RT (R) Scrub 09:33 AM Procedures Performed Procedure L HRT ARTERY/VENTRICLE ANGIO PRQ CARDIAC ANGIOPLAST 1 ART Pre-Procedure Checklist Informed consent is complete signed and on chart. H&P is on chart. ID band is on and ID verified with patient. Patient NPO for procedure The procedure was described for the patient and questions were answered. ECG is on chart. Plan of Care Patient will tolerate the procedure without complications. Adequate level of comfort will be maintained. Hemodynamics will remain stable Patient will recover from procedure without complications. Respiratory function will be maintained. Cardiac rhythm will remain stable. Patient temperature will be maintained. Patient and/or family have verbalized understanding of the procedure. Patient Education Intravenous Access Time IV Size Location DC'd Fluid/Drip Rate Units RN 09:29 AM 18g 1 /" Patent On Arrival Rt Antecubital Allergies NKA Buspirone No Known Allergies Vital Signs Time BP (mmHg) HR (bpm) O2 Sat. RR (bpm) LOC 09:35 AM / % 5 = Fully awake and oriented or at pre-proc level 09:35 AM / % 4 = Oriented but drowsy 09:50 AM / % 4 = Oriented but drowsy 10:21 AM 123 / 75 94 95 % 26 10:26 AM 125 / 73 93 96 % 21 10:31 AM 110 / 76 94 97 % 24 10:36 AM 121 / 79 97 96 % 24 09:36 AM 137 / 85 92 94 % 28 09:41 AM 132 / 76 90 93 % 24 09:46 AM 128 / 80 93 95 % 32 09:51 AM 119 / 74 93 94 % 26 09:56 AM 120 / 81 97 94 % 25 10:01 AM 123 / 78 93 94 % 26 10:06 AM 121 / 74 94 94 % 24 10:11 AM 111 / 70 96 94 % 23 10:16 AM 117 / 68 91 95 % 23 Procedural Medications Time Medication Dose Units Method Given By 09:36 AM Oxygen 2 L/min nasal cannula Emma Encarnacion RN 09:39 AM Versed 0.5 mg Intravenous Emma Encarnacion RN 09:39 AM Fentanyl 25 mcg Intravenous Emma Encarnacion RN 09:46 AM Lidocaine 2% 10 ml Subcutaneous Awilda Aguilera MD 09:58 AM Aggrastat Bolus: 50 ml Intravenous Emma Encarnacion RN 09:58 AM Aggrastat 12.5mg/250ml 9 ml/hr Intravenous Emma Encarnacion RN 10:10 AM Nitroglycerin 100 mcg Intracoronary Toi Aguilera MD 10:44 AM Plavix 300 mg Orally Emma Encarnacion RN ASA Classification: CLASS II- Mild systemic disease (i.e. well-controlled diabetes, hypertension, asthma, cigarette smoking) Melvin Score Preprocedure Postprocedure Activity 2- Moves 4 extremities sustained head lift Activity 2- Moves 4 extremities sustained head lift Circulation 2- SBP +/= 20 points of pre-anesthetic level Circulation 2- SBP +/= 20 points of pre-anesthetic level Consciousness 2- Awake and alert oriented x 3 Consciousness 2- Awake and alert oriented x 3 O2 Saturation 2- Able to maintain O2 satruation of 92% on room air O2 Saturation 2- Able to maintain O2 satruation of 92% on room air Respiratory 2- Able to deep breathe and cough well Respiratory 2- Able to deep breathe and cough well Total Score 10 Total Score 10 Contrast Agent: Isovue Diagnostic Contrast: 130 ml Total Contrast: 130 ml Fluoro Dose: 77630 mGy Activated Clotting Time Time Seconds to Clot 10:04 AM 309 Procedure Log Time Note Enter By 09:32 AM 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 cedwards 09:32 AM Physician arrived 09:32 cedwards 09:32 AM ASA Class CLASS II- Mild systemic disease (i.e. well-controlled diabetes, hypertension, asthma, cigarette smoking) ced 09:32 AM Zan and jesus completed ced 09:32 AM Sign in performed according to hospital policy. Informed consent was obtained. cedwards 09:32 AM Procedure start 09:32 cedwards 09:33 AM Emma Encarnacion RN Position: Irrigator Time in: :33 cedwards 09:33 AM Huey Royal RN Position: Monitor Time in: :33 cedwards 09:34 AM Christian Dill RT (R) Position: Scrub Time in: 09:33 cedwards 09:35 AM Time: 09:35 Patient comfortable and pain free: Yes cedwards 09:35 AM Time: 09:35LOC: 5 = Fully awake and oriented or at pre-proc level cedwards 09:35 AM Patient rating chest pain at a 9 out of 10 cedwards 09:36 AM Vitals capture started with the following parameters, Patient=Adult, Interval=5 min, Initial Txjtpziq=526 mmHg, Deflation Rate=5 mmHg, Cuff placed on Right Arm 09:36 AM Case Start 09:36 AM CathStat 09:36 AM Time: 09:36 Oxygen on at 2 L/min per nasal cannula by Emma Encarnacion RN cedwards 09:36 AM HR=92 bpm, JVSO=757/85 mmhg, SpO2=94.0 %, Resp=28 B/min, Comment=NSR 09:39 AM Time: 09:39 Versed 0.5 mg Intravenous Given by Emma Encarnacion RN cedwards 09:39 AM Pressure channel 1 zero failed. 09:39 AM Pressure channel 1 zeroed. 09:39 AM Time: 09:39 Fentanyl 25 mcg Intravenous Given by Emma Encarnacion RN cedwards 09:40 AM Recorded ECG: HR=91 Condition=Condition 1 09:41 AM HR=90 bpm, IJGY=235/76 mmhg, SpO2=93.0 %, Resp=24 B/min, Comment=NSR 09:45 AM Clinical Presentation: Unstable angina cedwards 09:45 AM Time out was performed according to hospital policy. Conscious sedation and anesthesia was achieved (see medication log with in this report above) cedwards 09:45 AM Patient rating chest pain at a 7 or 8 out of 10 cedwards 09:46 AM HR=93 bpm, VAWZ=527/80 mmhg, SpO2=95.0 %, Resp=32 B/min, Comment=NSR 09:47 AM Time: 09:46 10 ml Lidocaine 2% to right groin Subcutaneous Given by Awilda Aguilera MD cedwards 09:47 AM Micro-Introducer Kit utilized for sheath placement cedwards 09:48 AM Access obtained by percutaneous puncture. 6Fr 10cm Terumo Cooks sheath placed in right Femoral artery. [id number] cedwards 09:49 AM 0.035 145cm Navilyst 3mmJ wire [id number] cedwards 09:49 AM 5Fr FR 4 catheter inserted over the wire DN cedwards 09:50 AM RCA angiography performed in multiple views. cedwards 09:50 AM Recorded Pressure: Ao, HR=93, Condition=Condition 1 (Aorta) Ao 91/73/81 09:50 AM Time: 09:35 Patient comfortable and pain free: Yes cedwards 09:50 AM Time: 09:35LOC: 4 = Oriented but drowsy cedwards 09:50 AM Catheter removed cedwards 09:51 AM 5Fr FL 4 catheter inserted over the wire DN cedwards 09:51 AM HR=93 bpm, ZJYX=866/74 mmhg, SpO2=94.0 %, Resp=26 B/min, Comment=NSR 09:52 AM LCA angiography performed in multiple views. cedwards 09:52 AM Recorded Pressure: Ao, HR=92, Condition=Condition 1 (Aorta) Ao 94/71/82 09:54 AM Catheter removed cedwards 09:54 AM 5Fr Pigtail catheter inserted over the wire [facility] cedwards 09:54 AM Catheter crossed the aortic valve and was selectively placed in the left ventricle. Pressures recorded on pullback for left heart catheterization. cedwards 09:55 AM Recorded Pressure: LV, HR=98, Condition=Condition 1 (Left Ventricle) LV 109/10/10 09:55 AM Recorded Pressure: LV, Ao, HR=98, Condition=Condition 1 (Left Ventricle) LV 109/9/11, (Aorta) Ao 113/80/95 09:55 AM Pressures only cedwards 09:56 AM Catheter removed cedwards 09:56 AM HR=97 bpm, UAUF=613/81 mmhg, SpO2=94.0 %, Resp=25 B/min, Comment=NSR 09:57 AM PCI Status Urgent cedwards 09:57 AM PCI lesion in 1st Marginal. Pre Stenosis: 99 Pre LINH Flow: 3: Complete and Brisk Flow/Perfusion cedwards 09:57 AM PCI lesion in 1st Marginal. cedwards 09:57 AM 6Fr XB3.5 Cordis guide catheter was used to cannulate the PCI vessel successfully. reused? No cedwards 09:57 AM .014 [employer] [place] 190cm guide wire across target lesion-unsuccessful. reused? No cedwards 09:58 AM Inflation device was opened. cedwards 09:58 AM Time: 09:58 Aggrastat Bolus: 50 ml Intravenous Given by Emma Encarnacion RN Clemente pump cedwards 09:59 AM Time: 09:58 Aggrastat 12.5mg/250ml 9 ml/hr Intravenous Given by Emma Encarnacion RN Clemente pump cedwards 10:00 AM Coronary Dominance: right cedwards 10:01 AM HR=93 bpm, PTJS=272/78 mmhg, SpO2=94.0 %, Resp=26 B/min, Comment=NSR 10:01 AM Recorded Pressure: Ao, HR=94, Condition=Condition 1 (Aorta) Ao 102/67/81 10:03 AM BMW unsuccessful in crossing lesion, removed cedwards 10:04 AM .014 [employer] 190cm guide wire across target lesion- unsuccessful. reused? No cedwards 10:04 AM At 10:04 the ACT was 309 seconds. cedwards 10:05 AM Time: 09:50LOC: 4 = Oriented but drowsy cedwards 10:06 AM Time: 09:50 Patient comfortable and pain free: Yes cedwards 10:06 AM HR=94 bpm, WSRP=737/74 mmhg, SpO2=94.0 %, Resp=24 B/min, Comment=NSR 10:08 AM Recorded Pressure: Ao, HR=94, Condition=Condition 1 (Aorta) Ao 103/72/86 10:09 AM [employer] Export Clerk 50 would not cross, wire removed cedwards 10:10 AM .014 [employer] 190cm guide wire across target lesion- unsuccessful. reused? No cedwards 10:10 AM Time: 10:10 Nitroglycerin 100 mcg Intracoronary Given by Toi Aguilera MD cedwards 10:11 AM HR=96 bpm, OAXF=918/70 mmhg, SpO2=94.0 %, Resp=23 B/min, Comment=NSR 10:13 AM Whipser removed unable to cross 1st margina branch. Patient complaining of minor chest pain at this time. cedwards 10:14 AM Recorded Pressure: Ao, HR=94, Condition=Condition 1 (Aorta) Ao 91/65/76 10:16 AM HR=91 bpm, GSTD=236/68 mmhg, SpO2=95.0 %, Resp=23 B/min, Comment=NSR 10:21 AM HR=94 bpm, BPPQ=677/75 mmhg, SpO2=95.0 %, Resp=26 B/min, Comment=NSR 10:22 AM Time: 10:06 Patient comfortable and pain free: Yes cedwards 10:22 AM .014 [employer] 190cm guide wire across target lesion- successful. reused? Yes cedwards 10:22 AM 1.2 mm x 15 mm Emerge Monorail balloon across target lesion- successful. reused? No cedwards 10:23 AM Recorded Pressure: Ao, HR=94, Condition=Condition 1 (Aorta) Ao 91/67/80 10:25 AM Balloon inflated @ 6 lela for 11 seconds cedwards 10:25 AM Balloon inflated @ 10 lela for 11 seconds cedwards 10:26 AM Balloon inflated @ 10 lela for 8 seconds cedwards 10:26 AM Balloon inflated @ 10 lela for 5 seconds cedwards 10:26 AM Balloon catheter removed intact. cedwards 10:26 AM HR=93 bpm, LPMI=089/73 mmhg, SpO2=96.0 %, Resp=21 B/min, Comment=NSR 10:27 AM 1.5 mm x 15 mm Emerge Monorail balloon across target lesion- successful. reused? No cedwards 10:28 AM Balloon inflated @ 10 lela for 10 seconds cedwards 10:28 AM Balloon inflated @ 10 lela for 11 seconds cedwards 10:30 AM Balloon catheter removed intact. cedwards 10:31 AM 2.0 mm x 20 mm Emerge Monorail balloon across target lesion- successful. reused? No cedwards 10:31 AM HR=94 bpm, HTLE=632/76 mmhg, SpO2=97.0 %, Resp=24 B/min, Comment=NSR 10:33 AM Balloon inflated @ 7 lela for 10 seconds cedwards 10:33 AM Balloon inflated @ 12 lela for 30 seconds cedwards 10:34 AM Balloon inflated @ 10 lela for 30 seconds cedwards 10:35 AM Balloon inflated @ 10 lela for 30 seconds cedwards 10:36 AM Balloon catheter removed intact. cedwards 10:36 AM Guide wire removed intact. cedwards 10:36 AM Patient states chest pain is getting better now. cedwards 10:36 AM HR=97 bpm, UQYC=862/79 mmhg, SpO2=96.0 %, Resp=24 B/min 10:37 AM Procedure completed at 10:37 07/27/2018 cedwards 10:37 AM Did you address LINH flow and Dominance? Yes cedwards 10:38 AM Sign out completed: Radiation Dose 1676.89 mGy, 04033 cGy/cm2 Fluoro Time: 15.6 Isovue 370 - 200ml contrast 130 ml given by Awilda Aguilera MD. Complications: None. 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 Cardiac Rehab Consult needed: YesConfirmed administered medications: Yes cedwards 10:38 AM Isovue 370 - 200ml,2 Bottle(s) used. cedwards 10:39 AM Arterial sheath pulled, Angio-seal closure device used and was Successful [id number] S/N. cedwards 10:39 AM Estimated Blood Loss: minimal cedwards 10:39 AM Post ECG NSR cedwards 10:39 AM Post Blood Pressure 121/79 cedwards 10:40 AM Information taught Cardiac Cath, PCI, and Angioseal cedwards 10:41 AM Learning barriers :None cedwards 10:41 AM Education Methods Verbal cedwards 10:41 AM Site status No bleeding/hematoma - Rt Groin as reported by Christian Dill RT (R) at 10:41 cedwards 10:41 AM Opsite applied cedwards 10:42 AM Vitals capture stopped. 10:45 AM Time: 10:44 Plavix 300 mg Orally Given by Emma Encarnacion RN cedwards 10:45 AM Report given to Elvi DING Pt taken to E Room #32. 10:45 cedwards 10:45 AM Plavix, Effient or Brilinta given Yes cedwards 10:45 AM Patient out of room: 10:45 cedwards 10:45 AM Family not present. Family member called by Dr. Aguilera. cedwards 10:47 AM Lesion found in Mid RCA. Pre Stenosis: 50 Pre LINH Flow: cedwards 10:47 AM Lesion found in Proximal LAD. Pre Stenosis: 25 Pre LINH Flow: cedwards 10:47 AM Lesion found in Mid LAD. Pre Stenosis: 65 Pre LINH Flow: cedwards 10:47 AM Lesion found in 2nd Diagonal. Pre Stenosis: 60 Pre LINH Flow: cedwards 10:47 AM Lesion found in Right PDA. Pre Stenosis: 40 Pre LINH Flow: cedwards Complications Complication None Hemodynamics Pressures Site Systolic/A Wave Diastolic/V Wave Mean AO 91 73 81 AO 94 71 82 LV 109 10 10 LV 109 9 11 AO 113 80 95 AO 102 67 81 AO 103 72 86 AO 91 65 76 AO 91 67 80 Post Procedure Information Blood Pressure: 121/79 mmHg Rhythm: NSR Post procedural instructions were given Site Checks Time Location Status Staff Sheath In? Note 10:41 AM Rt Groin No bleeding/hematoma Christian Dill RT (R) NO Pulses DP 2+, Rad 2+ Updated by Huey Royal RN on 07/27/2018 10:55:55 AM electronically signed on 07/27/2018 2:11:37 PM with status of Final
--- NOTE | 2018-07-27 14:31 | Event Note ---
Date of Encounter: 07/27/18 Time of Encounter: 14:00 - Cardiology Event Note Called to patient's room. Pt c/o chest pain 8/10 midsternal. States pain increases with deep breaths. During ny exam pt fell asleep. Appears to continue to be drowsy from procedure. EKG showed no concerning ST changes. NTG SL given x 2 with no relief. NTG gtt ordered. Dr. Aguilera notified who evaluated patient. Pain likely non-cardiac. Continue to monitor.
--- NOTE | 2018-07-27 17:50 | Oncology Inp Consult Note ---
<Cha Ryan L - Last Filed: 07/28/18 15:06> Date of Encounter: 07/27/18 Time of Encounter: 15:00 Assessment and Plan (1) Thrombocytopenia Status: Chronic Assessment and plan: Chronic, dating back to January 2016, In presence of known history of hepatitis C Reviewed CT abdomen/pelvis July 2017 which revealed splenomegaly, abdominal ascites, cirrhosis could not be excluded S/P [facility] today report revealed one-vessel coronary artery disease, patient is status post PTCA in the mid OM Currently on Aggrastat, ASA and Plavix per cardiology He had initial saturation of op site noted earlier today, pressure applied with dressing changes, no active s/s bleeding noted currently Plan: We discussed he is at risk for bleeding secondary to thrombocytopenia with concomitant antiplatelet treatment Recommend platelet transfusion for platelet count 30-40 IF s/s bleeding noted Risk for bleeding increases with platelet <50, continue to closely monitor platelet count, consider discussing with cardiology for recommendations on antiplatelet therapy recommendations if plt <50, appreciate recommendations He may benefit from GI referral (inpatient versus outpatient), will discuss in AM (he had prior hepatitis C treatment in 2006 per patient? apparently unsuccessful at controlling viral load?) May benefit from continued outpatient hematology monitoring - Data of Consult Patient: new to practice Consult date: 07/27/18 Requesting Physician: Oscar Degroot MD Primary Care Provider: PCP NONE - Consult Narrative Reason for consult: Thrombocytopenia History of present illness: Mr. Durand is a 63 year old male with medical history of alcohol abuse, CKD, Chronic hep C and schizophrenia. He presented to [facility] ER for report of severe retrosternal chest pain radiating to his left arm and jaw with associated diaphoresis and SOB. Chest pain was not relieved by NTG in ER, he was placed on NTG gtt. Mr. Durand is a 63 year old male with medical history of alcohol abuse, CKD, Chronic hep C. schizophrenia was woken up suddenly in the early hours of today with severe retrosternal chest pain radiating to his left arm and jaw, pain said to be 8/10, associated with diaphoresis and shortness of breath. 2 SL NTG did not relieve his CP in the ER and he was started on a nitroglycerin drip. He was immediately taken to the cardiac cath tech by Cardiology when initial trop was 0.21 in the ER, EKG showed ST elevation Mr. Durand is somewhat of a poor historian. He states he received treatment for his hepatitis C in 2006 but cannot recall name of treatment. States viral load returned in 3 months and that treatment was unsuccessful. Since then, he has not followed with GI but follows PCP closely. He denies any history of issues with bleeding. Past Med Surg Social Fam HX - Past Medical History Medical history: non-contributory, hypertension Psychiatric history: anxiety, bipolar, depression, panic disorder, PTSD, schizophrenia - Past Surgical History Additional surgical history: RT KNEE REPLACEMENT, LIVER BX. - Social History Smoking Status: Current every day smoker Smokeless Tobacco Status: No Alcohol use: occasionally Drug use: other Medications and Allergies Aspirin 81 mg PO DAILY 05/17/15 [History] Doxepin [Sinequan] 25 mg PO TID 05/17/15 [History] Albuterol Sulfate [Ventolin Hfa] 2 puff IH Q4H PRN 07/23/17 [History] Atorvastatin Calcium [Lipitor] 20 mg PO HS 07/23/17 [History] Buspirone HCl [Buspar] 10 mg PO BID 07/23/17 [History] Carvedilol 12.5 mg PO BID 07/23/17 [History] Citalopram Hydrobromide [Citalopram HBr] 40 mg PO QPM 07/23/17 [History] Ropinirole HCl [Requip] 0.5 mg PO DAILY 07/23/17 [History] Magnesium Oxide [Magnesium] 400 mg PO DAILY #10 tablet 08/06/17 [Rx] risperiDONE [RisperDAL] 0.25 mg PO BID PRN tablet 08/06/17 [Rx] Benztropine [Cogentin] 1 mg PO BID 07/27/18 [History] Loratadine [Allergy Relief] 10 mg PO DAILY 07/27/18 [History] Melatonin [Melatin] 3 mg PO HS 07/27/18 [History] Omeprazole [PriLOSEC] 20 mg PO DAILY 07/27/18 [History] SUMAtriptan Succinate [Imitrex] 100 mg PO Q2H PRN MDD 200 mg 07/27/18 [History] risperiDONE [Risperdal] 2 mg PO QAM 07/27/18 [History] risperiDONE [Risperdal] 3 mg PO HS 07/27/18 [History] Allergy/AdvReac Type Severity Reaction Status Date / Time Buspirone [From BuSpar] Allergy Hives Verified 02/13/18 09:19 Constitutional: Absent: anorexia, chills, fatigue, fever(s), weakness, weight loss Eyes: Absent: change in vision Nose, mouth and throat: Absent: dysphagia Cardiovascular: Absent: chest pain, irregular heart rhythm, lightheadedness, palpitations Additional comments: denies cardiac symptoms currently Respiratory: Absent: cough, dyspnea Gastrointestinal: Absent: abdominal pain, change in bowel habits, hematemesis, hematochezia, melena, nausea, vomiting Genitourinary: Absent: dysuria Musculoskeletal: Absent: arthralgias, myalgias Integumentary: Absent: rash, wounds, jaundice Neurological: Absent: focal weakness, frequent falls Hematologic/Lymphatic: Present: as per HPI, easy bruising. Absent: easy bleeding, lymphadenopathy Oncology - Exam - Constitutional Vitals: Temp Pulse Resp BP Pulse Ox 98.2 F 94 15 116/77 93 07/27/18 13:00 07/27/18 15:25 07/27/18 15:25 07/27/18 15:25 07/27/18 15:25 General appearance: cooperative, no acute distress, no febrile - Head Head exam: Present: atraumatic - ENT ENT exam: Present: mucous membranes moist - Respiratory Respiratory exam: Present: CTAB. Absent: respiratory distress - Cardiovascular Cardiovascular exam: Present: RRR, +S1, +S2 - GI/Abdominal GI/Abdominal exam: Present: normal bowel sounds, soft. Absent: guarding, rebound, tenderness - Extremities Exam Extremities exam: Present: normal inspection. Absent: calf tenderness - Neurological Exam Neurological exam: Present: alert, oriented X3, no focal deficits, strengths equal and symetr throughout - Psychiatric Psychiatric exam: Present: normal affect, normal mood - Skin Skin exam: Present: dry, intact, normal color, warm Consult Discharge Plan - Plan Referrals: NONE,PCP [Primary Care Provider] - <Monica Aldrich - Last Filed: 07/28/18 15:59> Date of Encounter: 07/28/18 - Data of Consult Requesting Physician: Domenic Hoyt DO Primary Care Provider: PCP DANIEL Oncology - Exam - Constitutional Vitals: Temp Pulse Resp BP Pulse Ox 98.5 F 70 16 116/69 95 07/28/18 15:54 07/28/18 15:54 07/28/18 15:54 07/28/18 15:54 07/28/18 15:54 Oncology - Results Labs: 07/28/18 07/28/18 07/28/18 11:57 06:08 00:59 WBC RBC Hgb Hct MCV MCH MCHC RDW Plt Count MPV Immature Gran % Seg Neutrophils % Lymphocytes % Monocytes % Eosinophils % Basophils % Neutrophils # Lymphocytes # Monocytes # Eosinophils # Basophils # Platelet Estimate Immature Plt Fraction PT INR APTT D-Dimer Heparin Anti-Xa, LM Wt Sodium Potassium Chloride Carbon Dioxide BUN Creatinine Est GFR ( Amer) Est GFR (Non-Af Amer) BUN/Creatinine Ratio Glucose Calculated Osmolality Calcium Troponin I 0.23 H* 0.33 H* 0.40 H* Blood Type Antibody Screen 07/28/18 07/28/18 07/27/18 00:59 00:59 19:24 WBC 8.1 RBC 3.95 L Hgb 12.6 L Hct 37.1 L MCV 93.9 MCH 31.9 MCHC 34.0 RDW 13.2 Plt Count 45 L MPV 12.0 Immature Gran % 0.2 Seg Neutrophils % 50.0 Lymphocytes % 34.9 Monocytes % 13.2 Eosinophils % 1.2 Basophils % 0.5 Neutrophils # 4.1 Lymphocytes # 2.8 Monocytes # 1.1 Eosinophils # 0.1 Basophils # 0.0 Platelet Estimate Immature Plt Fraction PT INR APTT D-Dimer Heparin Anti-Xa, LM Wt Sodium 135 L Potassium 4.0 Chloride 109 H Carbon Dioxide 20 L BUN 20 Creatinine 1.25 Est GFR ( Amer) > 60 Est GFR (Non-Af Amer) 59 L BUN/Creatinine Ratio 16 Glucose 111 H Calculated Osmolality 283 Calcium 8.3 L Troponin I 0.41 H* Blood Type Antibody Screen 07/27/18 07/27/18 07/27/18 13:32 09:06 09:06 WBC RBC Hgb Hct MCV MCH MCHC RDW Plt Count MPV Immature Gran % Seg Neutrophils % Lymphocytes % Monocytes % Eosinophils % Basophils % Neutrophils # Lymphocytes # Monocytes # Eosinophils # Basophils # Platelet Estimate Immature Plt Fraction PT INR APTT D-Dimer Heparin Anti-Xa, LM Wt 0.00 L Sodium Potassium Chloride Carbon Dioxide BUN Creatinine Est GFR ( Amer) Est GFR (Non-Af Amer) BUN/Creatinine Ratio Glucose Calculated Osmolality Calcium Troponin I 0.31 H* Blood Type O POSITIVE Antibody Screen NEGATIVE 07/27/18 07/27/18 07/27/18 06:33 06:33 06:33 WBC 6.5 RBC 4.22 Hgb 13.7 Hct 39.2 MCV 92.9 MCH 32.5 MCHC 34.9 RDW 13.1 Plt Count 53 L MPV 11.0 Immature Gran % 0.2 Seg Neutrophils % 62.4 Lymphocytes % 22.3 Monocytes % 13.1 Eosinophils % 1.5 Basophils % 0.5 Neutrophils # 4.1 Lymphocytes # 1.5 Monocytes # 0.9 Eosinophils # 0.1 Basophils # 0.0 Platelet Estimate Slight Decrease L Immature Plt Fraction 4.3 PT 12.6 H INR 1.1 APTT 33.9 D-Dimer 723 H Heparin Anti-Xa, LM Wt Sodium 137 Potassium 4.8 Chloride 113 H Carbon Dioxide 19 L BUN 16 Creatinine 1.42 H Est GFR ( Amer) > 60 Est GFR (Non-Af Amer) 51 L BUN/Creatinine Ratio 11 Glucose 130 H Calculated Osmolality 287 Calcium 9.0 Troponin I 0.21 H* Blood Type Antibody Screen - Attending Attestation Thrombocytopenia plts at 40-50 at risk for bleeding with dual antiplt therapy. If need to be continued transfuse for bleeding symptoms if plt are <30k. I examined this patient and my medical decision-making was reviewed with the Advanced Practice Nurse, Cha Ryan. I agree with the documented findings, disposition and treatment plan as described except to the extent set forth below. Inpatient Charges Provider: Dr. Melissa Aldrich Consult - Inpatient: [id number]
[2018-07-28 01:30] LABS: Basophils % 0.5 %; Eosinophils # 0.1 K/mcL (0.0-0.6); Eosinophils % 1.2 %; Hematocrit 37.1 % (37.5-50.1); Hemoglobin 12.6 g/dL (12.9-16.9); Immature Granulocytes % 0.2 % (0-4); Lymphocytes # 2.8 K/mcL (0.6-4.6); Lymphocytes % 34.9 %; Mean Corpuscular Hemoglobin 31.9 pg (28.0-33.3); Mean Corpuscular Volume 93.9 fL (83.0-100.0); Monocytes # 1.1 K/mcL (0.0-1.3); Monocytes % 13.2 %; Neutrophils # 4.1 K/mcL (1.6-8.9); Red Blood Count 3.95 M/mcL (4.19-5.50); Red Cell Distribution Width 13.2 % (11.5-14.5)
[2018-07-28 01:31] LABS: Platelet Count 45 K/mcL (140-400)
[2018-07-28 01:48] LABS: BUN/Creatinine Ratio 16 (6-26); Blood Urea Nitrogen 20 mg/dL (8-23); Calcium 8.3 mg/dL (8.6-10.3); Carbon Dioxide 20 mEq/L (23-29); Chloride 109 mEq/L (98-107); Glucose 111 mg/dL (70-105); Osmolality,Calculated 283 (280-300); Sodium 135 mEq/L (136-145); eGFR For Non-African Americans 59 (> 60)
--- NOTE | 2018-07-28 08:11 | Internal Med Progress Note ---
Hospitalist Progress Note - Encounter Date of Encounter: 07/28/18 - Exam Vitals: Temp Pulse Resp BP Pulse Ox 98.4 F 74 16 111/73 97 07/28/18 07:55 07/28/18 07:55 07/28/18 07:55 07/28/18 07:55 07/28/18 07:55 - Time Spent with Patient Total time spent is greater than 50% in coordination of care (as documented) at patient's floor/unit and/or counseling patient: Internal Medicine: Result - Labs CBC & Chem 7: 07/28/18 00:59 07/28/18 00:59 Labs: Short CBC 07/28/18 Range/Units 00:59 WBC 8.1 (4.3-11.1) K/mcL Hgb 12.6 L (12.9-16.9) g/dL Hct 37.1 L (37.5-50.1) % Plt Count 45 L (140-400) K/mcL Neutrophils # 4.1 (1.6-8.9) K/mcL BMP 07/28/18 00:59 Sodium 135 L Potassium 4.0 Chloride 109 H Carbon Dioxide 20 L BUN 20 Creatinine 1.25 Glucose 111 H Calcium 8.3 L Cardiac Enzymes 07/27/18 07/27/18 07/28/18 Range/Units 13:32 19:24 00:59 Troponin I 0.31 H* 0.41 H* 0.40 H* (< 0.04) ng/mL 07/28/18 Range/Units 06:08 Troponin I 0.33 H* (< 0.04) ng/mL - ABG Interpretation ABG results: PT/INR, D-dimer PT 12.6 Seconds (9.4-12.1) H 07/27/18 06:33 D-Dimer 723 ng/mLFEU (0-500) H 07/27/18 06:33 - Impressions Impressions Chest CTA 07/27/18 08:05 IMPRESSION: No evidence of pulmonary embolism or acute pulmonary abnormality. Mild dependent atelectasis. Heavy calcification the LAD. D/ / Gavin Shaw MD / Gavin Shaw MD Interpreting Provider: Gavin Shaw MD Consult Discharge Plan - Plan Referrals: NONE,PCP [Primary Care Provider] -
[2018-07-28] MEDS: Aspirin 81 MG TAB.CHEW PO SCH (08:37)
[2018-07-28] MEDS: Isosorbide MONOnitrate (24 HR) 60 MG TAB.ER.24H PO SCH (08:37)
--- NOTE | 2018-07-28 11:03 | Cardiology Progress Note ---
Date of Encounter: 07/28/18 Time of Encounter: 10:58 Assessment and Plan (1) Non-ST elevation ND (NSTEMI) Current Visit: Yes Status: Acute EKG shows SR with borderline ST elevation in AVR and mild recipricol changes. Reviewed with Dr. Aguilera, EKG does not meet STEMI criteria. Troponin 0.21. S/p [facility] with PCI to the OM. There was moderate CAD remaining including 65% stenosis in the mLAD. Pt initially described atypical chest pain that increased with deep breaths after procedure. Pain is now resolved. Post procedure EKG showed no acute ST changes. TTE completed LVEF 60-65%. Mild concentric left ventricular hypertrophy. Normal LV chamber size, wall thickness and function. Mild left ventricular diastolic dysfunction. Mildly dilated right ventricle with normal function. Moderate pulmonary hypertension. Estimated RVSP is 50 mmHg. No significant valvular dysfunction. D/c NTG gtt and start imdur. Importance of DAPt with aspirin and Plavix uninterrupted for a minimum of 1 year reviewed with patient and he voiced understanding. Continue statin and beta rip. Noted that platelets remain decreased. Hematology now following. May require platelet transfusion. Unable to stop DAPT. No signs of active bleeding. Right groin dressing now removed and no drainage seen from femoral access site. No hematoma. Close outpatient follow-up with Dr. Aguilera will be arranged by [facility]. Cardiology will sign off call with questions. (2) CAD (coronary artery disease) Current Visit: Yes Status: Chronic See plan above. Smoking cessation discussed. Healthy heart diet and exercise. Cardiac rehabilitation ordered. Qualifiers: Coronary Disease-Associated Artery/Lesion type: [place] artery [place] vs. transplanted heart: [place] heart Associated angina: with unstable angina Qualified Code(s): I25.110 - Atherosclerotic heart disease of [place] coronary artery with unstable angina pectoris (3) Thrombocytopenia Current Visit: Yes Status: Chronic Noted PLT 52 and now 45. Appears to be chronic. He does have hc of prior heavy ETOH use and hepatitis C. Hematology now following appreciate recommendations. Discussion w patient/family: The assessment and plan as outlined above was discussed with the patient and/or family members who expressed understanding and agreement. All questions were answered. Thank you for involving us in the care of your patient. Please call with any questions. Subjective Principal diagnosis: NSTEMI Interval history: Mr. Durand is now pain free. Resting quietly in bed. Dressing on right groin changed overnight due to saturation but now is clean and dry. Denies pain in right groin. Objective Vital Signs, Last 4 Hours Temp Pulse Resp BP Pulse Ox 07/28/18 07:55 98.4 F 74 16 111/73 97 General: Conversant, No Apparent Distress HEENT: Atraumatic, Normocephaly, Mucus Membranes Moist Neck: No JVD, Normal carotid pulses Cardiac: Reg Rate and Rhythm, Normal S1 and S2, No Murmur Lungs: Normal Breath Sounds, No Wheeze, Rales, Rhonchi Neuro: Alert and responsive, No focal deficits noted Abdomen: Soft, Non-Tender Skin: No rashes noted on visualized skin Musculoskeletal: No Chest Wall Tenderness Extremities: No Clubbing, No Cyanosis, No Edema, Normal Pulses, Other (right groin dressing removed. ) Results 07/28/18 00:59 07/28/18 00:59 Lab Results 07/27/18 07/27/18 07/28/18 13:32 19:24 00:59 WBC 8.1 Hgb 12.6 L Hct 37.1 L Plt Count 45 L Sodium Potassium Chloride Carbon Dioxide BUN Creatinine Glucose Calcium Troponin I 0.31 H* 0.41 H* 07/28/18 07/28/18 07/28/18 00:59 00:59 06:08 WBC Hgb Hct Plt Count Sodium 135 L Potassium 4.0 Chloride 109 H Carbon Dioxide 20 L BUN 20 Creatinine 1.25 Glucose 111 H Calcium 8.3 L Troponin I 0.40 H* 0.33 H* - Imaging and Cardiology Cardiac cath: report reviewed - EKG Interpretation EKG results cardiology: personally reviewed Consult Discharge Plan - Plan Referrals: NONE,PCP [Primary Care Provider] -
--- NOTE | 2018-07-28 13:11 | Internal Med Progress Note ---
<Domenic Hoyt - Last Filed: 07/28/18 17:05> Hospitalist Progress Note - Encounter Date of Encounter: 07/28/18 - Exam Vitals: Temp Pulse Resp BP Pulse Ox 98.5 F 70 16 116/69 95 07/28/18 15:54 07/28/18 15:54 07/28/18 15:54 07/28/18 15:54 07/28/18 15:54 - Assessment and Plan (1) Schizophrenia Current Visit: Yes Status: Chronic (2) Non-ST elevation AR (NSTEMI) Current Visit: Yes Status: Acute (3) CAD (coronary artery disease) Current Visit: Yes Status: Chronic (4) Thrombocytopenia Current Visit: Yes Status: Chronic (5) HTN (hypertension) Current Visit: Yes Status: Chronic (6) Tobacco abuse Current Visit: Yes Status: Chronic (7) CHF (congestive heart failure) Current Visit: Yes Status: Chronic - Time Spent with Patient Total time spent is greater than 50% in coordination of care (as documented) at patient's floor/unit and/or counseling patient: Internal Medicine: Result - Labs CBC & Chem 7: 07/28/18 00:59 07/28/18 00:59 Labs: Short CBC 07/28/18 Range/Units 00:59 WBC 8.1 (4.3-11.1) K/mcL Hgb 12.6 L (12.9-16.9) g/dL Hct 37.1 L (37.5-50.1) % Plt Count 45 L (140-400) K/mcL Neutrophils # 4.1 (1.6-8.9) K/mcL BMP 07/28/18 00:59 Sodium 135 L Potassium 4.0 Chloride 109 H Carbon Dioxide 20 L BUN 20 Creatinine 1.25 Glucose 111 H Calcium 8.3 L Cardiac Enzymes 07/27/18 07/28/18 07/28/18 Range/Units 19:24 00:59 06:08 Troponin I 0.41 H* 0.40 H* 0.33 H* (< 0.04) ng/mL 07/28/18 Range/Units 11:57 Troponin I 0.23 H* (< 0.04) ng/mL - ABG Interpretation ABG results: PT/INR, D-dimer PT 12.6 Seconds (9.4-12.1) H 07/27/18 06:33 D-Dimer 723 ng/mLFEU (0-500) H 07/27/18 06:33 - Impressions Impressions Echocardiogram 07/27/18 11:08 Impressions: LVEF 60-65%. Mild concentric left ventricular hypertrophy. Normal LV chamber size, wall thickness and function. Mild left ventricular diastolic dysfunction. Mildly dilated right ventricle with normal function. Moderate pulmonary hypertension. Estimated RVSP is 50 mmHg. No significant valvular dysfunction. Left Ventricular Wall Motion: Rest Echo Findings All wall segments showed normal motion. Findings: Study Quality * Technically adequate exam. ECG Findings * Normal sinus rhythm. Left Ventricle * LVEF 60-65%. * Normal LV chamber size and function. * Mild concentric left ventricular hypertrophy. * Mild left ventricular diastolic dysfunction. Right Ventricle * Mildly dilated right ventricle with normal function. Left Atrium * Mildly dilated left atrium. Right Atrium * Mildly dilated right atrium. Aortic Valve * Aortic valve not well visualized. * No aortic regurgitation. * No aortic stenosis. Mitral Valve * Normal mitral valve structure and function. * No mitral regurgitation. * No mitral stenosis. Tricuspid Valve * Normal tricuspid valve structure and function. * Trace tricuspid regurgitation. * Moderate pulmonary hypertension. * Estimated RVSP is 50 mmHg. * Estimated RA pressure is 5 mmHg. Pulmonic Valve * Pulmonic valve is not well visualized. * No pulmonic regurgitation. Aorta * Normally sized aortic root. Pericardium * The pericardium appears normal. IVC * Normal IVC dimensions and inspiratory collapse. Pulmonary Artery * Normal visualized portions of the main pulmonary artery. Consult Discharge Plan - Plan Referrals: NONE,PCP [Primary Care Provider] - - Attending Attestation The history, physical exam, and medical decision making was performed by the medical student either while I was physically present and actively involved or I personally re-performed the exam and medical decision making. I have verified the accuracy of the medical student's documentation with regards to the history, physical exam findings, and medical decision making on 07/28/18. Mr Durand is currently hospitalized for acute NSTEMI. He remains moderate to high risk due to potential for worsening clinical status. Mr Werner feels OK. No fever or chills. Platelets lower than baseline today. No bleeding noted. No GI issues. No chest pain at this time. Exam alert Comfortable. Mucus membranes dry Heart reg with no murmur or tachycardia Lungs clear at this time Abd soft. No edema Moves all extremities. I/P 1. NSTEMI s/p stent - on DAPT. 2. Thrombocytopenia - recheck tomorrow. Needs to continue meds. 3. CAD Further diagnoses and plan as above. <Joe Hedrick W - Last Filed: 07/29/18 10:26> Hospitalist Progress Note - Encounter Date of Encounter: 07/29/18 Time of Encounter: 09:15 - Subjective Interval History: Mr. Durand is a 63 year old male who presented to the ED yesterday with severe substernal chest pain. He has a medical history of COPD, HTN, CKD, chronic hep C, and schizophrenia, and a previous history of chronic alcohol abuse,. He reported the pain to be 10/10 and EMS gave him aspirin and sublingual nitro with no relief. He also received one albuterol for wheezing that EMS said they heard. In ED he was started on a nitroglycerin drip. An EKG was performed and showed sinus tachycardia and NSTEMI. A CTA was also performed and was negative for a PE, but showed LAD disease for which he went to the laborer livestock for PTCA. He reported moderate post-op chest pain. Today patient was evaluated at bedside and denies chest pain or palpitations, dyspnea or wheezing, fatigue or fevers, N/V, diarrhea, numbness or tingling, and weakness. - Exam Vitals: Temp Pulse Resp BP Pulse Ox 98.4 F 72 16 100/64 95 07/28/18 11:38 07/28/18 11:38 07/28/18 11:38 07/28/18 11:38 07/28/18 11:38 Exam: Gen: in no acute distress. CV: RRR, normal S1 and S2. No murmurs, gallop, or rubs. Resp: CTA bilaterally with full breath sounds, symmetric thorax. No wheezes, rhonchi, or rales. Abdominal: abdomen soft, non-distended. BSx4. no ecchymoses or lesions. Neuro: alert and oriented. - Assessment and Plan (1) Non-ST elevation AR (NSTEMI) Current Visit: Yes Status: Acute Assessment and Plan: Continue aggrastat, per cardiology. Continue the aspirin, plavix, and lipitor. Check A1C with the morning labs. Take sublingual nitro PRN chest pain. Follow the echo reports. CTA doesn't show any pulmonary infiltrates, no PE. Cardiology is following. (2) CAD (coronary artery disease) Current Visit: Yes Status: Chronic Assessment and Plan: Same plan as NSTEMI (3) Schizophrenia Current Visit: Yes Status: Chronic Assessment and Plan: Resume home psych medications after confirmation. (4) Thrombocytopenia Current Visit: Yes Status: Chronic Assessment and Plan: Patient has a history of previous chronic alcohol use, and chronic thrombocytopenia. Except count in this admission 53 Patient with NSTEMI on Aggrastat, aspirin, Plavix, access site with continuous bleeding Hematology oncology has been consulted for recommendations Type and screen sent We will transfuse for uncontrolled bleeding and PLT or Less than 10.000 Patient is currently hemodynamically stable. - Time Spent with Patient Total time spent is greater than 50% in coordination of care (as documented) at patient's floor/unit and/or counseling patient: Internal Medicine: Result - Labs CBC & Chem 7: 07/29/18 04:46 07/29/18 04:46 Labs: Short CBC 07/28/18 Range/Units 00:59 WBC 8.1 (4.3-11.1) K/mcL Hgb 12.6 L (12.9-16.9) g/dL Hct 37.1 L (37.5-50.1) % Plt Count 45 L (140-400) K/mcL Neutrophils # 4.1 (1.6-8.9) K/mcL BMP 07/28/18 00:59 Sodium 135 L Potassium 4.0 Chloride 109 H Carbon Dioxide 20 L BUN 20 Creatinine 1.25 Glucose 111 H Calcium 8.3 L Cardiac Enzymes 07/27/18 07/27/18 07/28/18 Range/Units 13:32 19:24 00:59 Troponin I 0.31 H* 0.41 H* 0.40 H* (< 0.04) ng/mL 07/28/18 07/28/18 Range/Units 06:08 11:57 Troponin I 0.33 H* 0.23 H* (< 0.04) ng/mL - ABG Interpretation ABG results: PT/INR, D-dimer PT 12.6 Seconds (9.4-12.1) H 07/27/18 06:33 D-Dimer 723 ng/mLFEU (0-500) H 07/27/18 06:33 - Impressions Impressions Echocardiogram 07/27/18 11:08 Impressions: LVEF 60-65%. Mild concentric left ventricular hypertrophy. Normal LV chamber size, wall thickness and function. Mild left ventricular diastolic dysfunction. Mildly dilated right ventricle with normal function. Moderate pulmonary hypertension. Estimated RVSP is 50 mmHg. No significant valvular dysfunction. Left Ventricular Wall Motion: Rest Echo Findings All wall segments showed normal motion. Findings: Study Quality * Technically adequate exam. ECG Findings * Normal sinus rhythm. Left Ventricle * LVEF 60-65%. * Normal LV chamber size and function. * Mild concentric left ventricular hypertrophy. * Mild left ventricular diastolic dysfunction. Right Ventricle * Mildly dilated right ventricle with normal function. Left Atrium * Mildly dilated left atrium. Right Atrium * Mildly dilated right atrium. Aortic Valve * Aortic valve not well visualized. * No aortic regurgitation. * No aortic stenosis. Mitral Valve * Normal mitral valve structure and function. * No mitral regurgitation. * No mitral stenosis. Tricuspid Valve * Normal tricuspid valve structure and function. * Trace tricuspid regurgitation. * Moderate pulmonary hypertension. * Estimated RVSP is 50 mmHg. * Estimated RA pressure is 5 mmHg. Pulmonic Valve * Pulmonic valve is not well visualized. * No pulmonic regurgitation. Aorta * Normally sized aortic root. Pericardium * The pericardium appears normal. IVC * Normal IVC dimensions and inspiratory collapse. Pulmonary Artery * Normal visualized portions of the main pulmonary artery. <Domenic Hoyt - Last Filed: 07/28/18 17:05> (1) Schizophrenia Qualifiers: Schizophrenia type: unspecified Qualified Code(s): F20.9 - Schizophrenia, unspecified (3) CAD (coronary artery disease) Qualifiers: Coronary Disease-Associated Artery/Lesion type: [place] artery [place] vs. transplanted heart: [place] heart Associated angina: with unstable angina Qualified Code(s): I25.110 - Atherosclerotic heart disease of [place] coronary artery with unstable angina pectoris (5) HTN (hypertension) Qualifiers: Hypertension type: essential hypertension Qualified Code(s): I10 - Essential (primary) hypertension (7) CHF (congestive heart failure) Qualifiers: Heart failure type: diastolic Heart failure chronicity: chronic Qualified Code(s): I50.32 - Chronic diastolic (congestive) heart failure <Joe Hedrick - Last Filed: 07/29/18 10:26> (2) CAD (coronary artery disease) Qualifiers: Coronary Disease-Associated Artery/Lesion type: [place] artery [place] vs. transplanted heart: [place] heart Associated angina: with unstable angina Qualified Code(s): I25.110 - Atherosclerotic heart disease of [place] coronary artery with unstable angina pectoris (3) Schizophrenia Qualifiers: Schizophrenia type: unspecified Qualified Code(s): F20.9 - Schizophrenia, unspecified
--- NOTE | 2018-07-28 13:51 | Electrocardiograph Report ---
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
--- NOTE | 2018-07-28 13:55 | Electrocardiograph Report ---
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
--- NOTE | 2018-07-28 17:10 | Electrocardiograph Report ---
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
--- NOTE | 2018-07-28 17:12 | Oncology Inp Progress Note ---
Date of Encounter: 07/28/18 Time of Encounter: 16:00 (1) Thrombocytopenia Current Visit: Yes Status: Chronic Assessment and plan: Chronic, dating back to January 2016, In presence of known history of hepatitis C Reviewed CT abdomen/pelvis July 2017 which revealed splenomegaly, abdominal ascites, cirrhosis could not be excluded S/P [facility] report revealed one-vessel coronary artery disease, patient is status post PTCA in the mid OM Currently on ASA and Plavix per cardiology No active s/s bleeding noted currently Plan: Patient understands that he continues to be at high risk for bleeding secondary to thrombocytopenia with concomitant DAPT Reviewed cardiology note, DAPT is recommended uninterrupted for minimum of 12 months, DAPT cannot be stopped Recommend platelet transfusion for platelet count 30-40 IF s/s bleeding noted, recommend platelet transfusion for platelet count <30 He may benefit from GI referral (inpatient versus outpatient), he had prior hepatitis C treatment in 2006 per patient? apparently unsuccessful at controlling viral load?, would appreciate GI recommendations on any hepatitis c treatment that may be of benefit to patient He has follow up scheduled with Dr. Sprague in 1 week, he will need close outpatient monitoring He was advised on s/s of bleeding of which he would need to report to ER for Oncology: Subj Interval history: NO acute events overnight. Denies chest pain, SOB, heart palpitations, abdominal pain, nausea, vomiting or any s/s bleeding. No pain to groin site, denies any bleeding to groin site, area is ADRIANE. - Constitutional Vitals: Vital Signs Temp Pulse Resp BP Pulse Ox 07/28/18 15:54 98.5 F 70 16 116/69 95 07/28/18 11:38 98.4 F 72 16 100/64 95 07/28/18 07:55 98.4 F 74 16 111/73 97 07/28/18 06:17 70 16 113/72 07/28/18 04:56 87 14 108/70 95 07/28/18 03:49 108/70 07/27/18 23:54 79 18 110/64 94 07/27/18 21:22 98.4 F 82 18 112/76 96 Intake and Output 07/28/18 07/28/18 07/28/18 07:59 15:59 23:59 Intake Total 860 / 860 109 / 109 Output Total 500 / 500 1025 / 1025 Balance -500 / -500 -165 / -165 109 / 109 Intake: IV Fluids 109 / 109 Nitroglycerin Premix 25 MG/250 109 / 109 ML 25 mg In 250 ml @ 5 MCG/MIN 3 mls/hr IVC .Q24H [facility] Rx#: [id number] Oral 860 / 860 Output: Urine 500 / 500 1025 / 1025 Other: Meal Lunch Percent of Meal Consumed 100% General appearance: cooperative, no acute distress, no febrile - Head Head exam: Present: atraumatic - ENT ENT exam: Present: mucous membranes moist - Respiratory Respiratory exam: Present: CTAB. Absent: respiratory distress - Cardiovascular Cardiovascular exam: Present: RRR, +S1, +S2 - GI/Abdominal GI/Abdominal exam: Present: normal bowel sounds, soft. Absent: tenderness - Extremities Exam Extremities exam: Present: normal inspection. 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 Mild concentric left ventricular hypertrophy. Normal LV chamber size, wall thickness and function. Mild left ventricular diastolic dysfunction. Mildly dilated right ventricle with normal function. Moderate pulmonary hypertension. Estimated RVSP is 50 mmHg. No significant valvular dysfunction. Left Ventricular Wall Motion: Rest Echo Findings All wall segments showed normal motion. Findings: Study Quality * Technically adequate exam. ECG Findings * Normal sinus rhythm. Left Ventricle * LVEF 60-65%. * Normal LV chamber size and function. * Mild concentric left ventricular hypertrophy. * Mild left ventricular diastolic dysfunction. Right Ventricle * Mildly dilated right ventricle with normal function. Left Atrium * Mildly dilated left atrium. Right Atrium * Mildly dilated right atrium. Aortic Valve * Aortic valve not well visualized. * No aortic regurgitation. * No aortic stenosis. Mitral Valve * Normal mitral valve structure and function. * No mitral regurgitation. * No mitral stenosis. Tricuspid Valve * Normal tricuspid valve structure and function. * Trace tricuspid regurgitation. * Moderate pulmonary hypertension. * Estimated RVSP is 50 mmHg. * Estimated RA pressure is 5 mmHg. Pulmonic Valve * Pulmonic valve is not well visualized. * No pulmonic regurgitation. Aorta * Normally sized aortic root. Pericardium * The pericardium appears normal. IVC * Normal IVC dimensions and inspiratory collapse. Pulmonary Artery * Normal visualized portions of the main pulmonary artery. - ABG Interpretation ABG results: PT/INR, D-dimer PT 12.6 Seconds (9.4-12.1) H 07/27/18 06:33 D-Dimer 723 ng/mLFEU (0-500) H 07/27/18 06:33 Consult Discharge Plan - Plan Referrals: NONE,PCP [Primary Care Provider] - Inpatient Charges Provider: Cha Ryan CNP Follow up - Inpatient: [id number]
[2018-07-28] MEDS ORDERED: RisperiDAL 3 MG TABLET PO SCH (21:00)
[2018-07-29 05:13] LABS: Immature Granulocytes % 0.2 % (0-4); Red Cell Distribution Width 13.4 % (11.5-14.5)
[2018-07-29 05:14] LABS: Basophils % 0.5 %; Eosinophils # 0.1 K/mcL (0.0-0.6); Hematocrit 36.2 % (37.5-50.1); Hemoglobin 12.2 g/dL (12.9-16.9); Immature Platelets 4.4 % (1.1-6.1); Lymphocytes # 1.7 K/mcL (0.6-4.6); Lymphocytes % 38.9 %; Mean Corpuscular HGB Conc 33.7 g/dL (31.6-35.5); Mean Corpuscular Hemoglobin 32.2 pg (28.0-33.3); Mean Corpuscular Volume 95.5 fL (83.0-100.0); Mean Platelet Volume 11.9 fL (9.4-12.4); Monocytes # 0.5 K/mcL (0.0-1.3); Red Blood Count 3.79 M/mcL (4.19-5.50); Segmented Neutrophils % 46.4 %
[2018-07-29 05:19] LABS: Platelet Count 42 K/mcL (140-400)
[2018-07-29 05:32] LABS: BUN/Creatinine Ratio 20 (6-26); Blood Urea Nitrogen 25 mg/dL (8-23); Calcium 8.4 mg/dL (8.6-10.3); Carbon Dioxide 21 mEq/L (23-29); Chloride 112 mEq/L (98-107); Glucose 102 mg/dL (70-105); Osmolality,Calculated 293 (280-300); Sodium 139 mEq/L (136-145); eGFR For Non-African Americans 58 (> 60)
[2018-07-29 08:15] LABS: Estimated Average Glucose 100 mg/dl; Hemoglobin A1C 5.1 %
[2018-07-29] MEDS ORDERED: risperiDONE 1 MG TABLET PO SCH (09:00)
[2018-07-29] MEDS: Isosorbide MONOnitrate (24 HR) 60 MG TAB.ER.24H PO SCH (09:01)
[2018-07-29] MEDS: Aspirin 81 MG TAB.CHEW PO SCH (09:01)
--- NOTE | 2018-07-29 10:31 | Internal Med Progress Note ---
Hospitalist Progress Note - Encounter Date of Encounter: 07/29/18 Time of Encounter: 09:35 - Subjective Interval History: Mr. Durand is a 63 year old male who presented to the ED 2 days ago with severe substernal chest pain. He has a medical history of COPD, HTN, CKD, chronic hep C, and schizophrenia, and a previous history of chronic alcohol abuse,. He reported the pain to be 10/10 and EMS gave him aspirin and sublingual nitro with no relief. He also received one albuterol for wheezing that EMS said they heard. In ED he was started on a nitroglycerin drip. An EKG was performed and showed sinus tachycardia and NSTEMI. A CTA was also performed and was negative for a PE, but showed LAD disease for which he went to the chemical laboratory technician for PTCA. He reported moderate post-op chest pain. Patient was evaluated at bedside today and denies chest pain, palpitations, SOB, dyspnea, wheezing, fevers, fatigue, HAs, N/V, diarrhea, numbness, and weakness. He reports that he has still not had a bowel movement since being admitted. - Exam Vitals: Temp Pulse Resp BP Pulse Ox 98.1 F 64 17 131/81 95 07/29/18 06:59 07/29/18 06:59 07/29/18 06:59 07/29/18 06:59 07/29/18 06:59 Exam: Gen: alert, oriented, and interactive. In no acute distress. CV: RRR, normal S1 and S2. No murmurs, gallop, or rubs. Resp: CTA bilaterally with full breath sounds, symmetric thorax. No wheezes, rhonchi, or rales. GI: abdomen soft, non-distended. BSx4. No hepatomegaly, splenomegaly, ecchy mosis, or lesions. Extremities: radial and dorsalis pedis pulses +2 bilaterally. No diaphoresis. - Assessment and Plan (1) Non-ST elevation [place] (NSTEMI) Current Visit: Yes Status: Acute Assessment and Plan: Plan: -Continue DAPT -Take sublingual nitro PRN (2) CAD (coronary artery disease) Current Visit: Yes Status: Chronic Assessment and Plan: Same plan as NSTEMI (3) Schizophrenia Current Visit: Yes Status: Chronic Assessment and Plan: Resume home psych medications after confirmation. (4) Thrombocytopenia Current Visit: Yes Status: Chronic - Time Spent with Patient Total time spent is greater than 50% in coordination of care (as documented) at patient's floor/unit and/or counseling patient: Internal Medicine: Result - Labs CBC & Chem 7: 07/29/18 04:46 07/29/18 04:46 Labs: Short CBC 07/29/18 Range/Units 04:46 WBC 4.3 (4.3-11.1) K/mcL Hgb 12.2 L (12.9-16.9) g/dL Hct 36.2 L (37.5-50.1) % Plt Count 42 L (140-400) K/mcL Neutrophils # 2.0 (1.6-8.9) K/mcL BMP 07/29/18 04:46 Sodium 139 Potassium 4.0 Chloride 112 H Carbon Dioxide 21 L BUN 25 H Creatinine 1.27 Glucose 102 Calcium 8.4 L Cardiac Enzymes 07/28/18 Range/Units 11:57 Troponin I 0.23 H* (< 0.04) ng/mL - ABG Interpretation ABG results: PT/INR, D-dimer PT 12.6 Seconds (9.4-12.1) H 07/27/18 06:33 D-Dimer 723 ng/mLFEU (0-500) H 07/27/18 06:33 Consult Discharge Plan - Plan Referrals: NONE,PCP [Primary Care Provider] - _ (2) CAD (coronary artery disease) Qualifiers: Coronary Disease-Associated Artery/Lesion type: [place] artery [place] vs. transplanted heart: [place] heart Associated angina: with unstable angina Qualified Code(s): I25.110 - Atherosclerotic heart disease of [place] coronary artery with unstable angina pectoris (3) Schizophrenia Qualifiers: Schizophrenia type: unspecified Qualified Code(s): F20.9 - Schizophrenia, unspecified
[2018-07-29 11:02] VITALS: BP 112/60
--- NOTE | 2018-07-29 13:46 | Discharge Summary ---
<Love Cervantes - Last Filed: 07/29/18 15:11> - NOTES TO OUTPATIENT PROVIDER Notes to Outpatient Provider: NSTEMI. S/p LHC with PCI to the OM. Patient to continue DAPT with aspirin and Plavix uninterrupted for one year and, Lipitor. To follow up with cardiology. Patient was noted to be thrombocytopenic and is to follow-up with Dr. Sprague in 1 week. He has noticed history of hepatitis C for which we are given in paperwork for referral to G.I. Orders not resulted at time of discharge: Pending orders 07/28/18 07:00 ECG 12 lead ECG [ECG] Routine Date of Encounter: 07/29/18 Time of Encounter: 11:00 - Discharge Diagnosis (1) Non-ST elevation [place] (NSTEMI) Priority: Primary Status: Acute (2) Schizophrenia Priority: Secondary Status: Chronic Qualifiers: Schizophrenia type: unspecified Qualified Code(s): F20.9 - Schizophrenia, unspecified (3) CAD (coronary artery disease) Priority: Secondary Status: Chronic Qualifiers: Coronary Disease-Associated Artery/Lesion type: [place] artery [place] vs. transplanted heart: [place] heart Associated angina: with unstable angina Qualified Code(s): I25.110 - Atherosclerotic heart disease of [place] coronary artery with unstable angina pectoris (4) Thrombocytopenia Priority: Secondary Status: Chronic (5) HTN (hypertension) Priority: Secondary Status: Chronic Qualifiers: Hypertension type: essential hypertension Qualified Code(s): I10 - Essential (primary) hypertension (6) Tobacco abuse Priority: Secondary Status: Chronic (7) CHF (congestive heart failure) Priority: Secondary Status: Chronic Qualifiers: Heart failure type: diastolic Heart failure chronicity: chronic Qualified Code(s): I50.32 - Chronic diastolic (congestive) heart failure Hospital course: Mr. Durand is a 63 year old male who presented to the ED on 07-27-18 with severe substernal chest pain. EMS gave him aspirin and sublingual nitro with no relief. He also received one albuterol for wheezing that EMS said they heard. In ED he was started on a nitroglycerin drip. An EKG was first performed upon admission and showed sinus tachycardia with minimal ST elevation in the inferior leads not enough to be classified as a STEMI. A tropinin I level performed and was elevated and a D-dimer was ordered for the patients tachycardia to r/o PE. The D-dimer was high, and a CTA was ordered which ruled out a PE. He was started on heparin 5000 units. It was determined the patient was having a NSTEMI. The CTA did show LAD disease for which he went to the label pinker for PTCA. He reported moderate post-op chest pain. Patient was started on aggrastat and duel antiplatelet therapy. Patient also put on a beta rip and statin. The nitrodrip was stopped and switched to PRN. Upon discharge the patient denied any chest pain, shortness of breath, fever, chills, nausea. He was noted to be thrombocytopenic which was chronic for him. Hematology oncology was consulted and evaluated him. He has a history of hepatitis C and they recommended that he have a referral to [facility] outpatient for continued management. He was instructed to continue aspirin and Plavix (DAPT) uninterrupted for one year. Continue taking carvedilol, atorvastatin, imdur. He is to follow up with cardiology outpatient. He is to follow up with Dr. Sprague for thrombocytopenia. He was instructed to follow up with [facility] outpatient for his hepatitis C for further management. He was instructed to return the hospital should you develop chest pain, shortness breath, bleeding. He was alert and oriented times 3 and stated clear understanding of the treatment plan. Discharge discussed with: patient, nurse - Time Spent with Patient Total time spent providing and/or coordinating discharge services: Greater than 30 minutes - Discharge Medications Prescriptions: Aspirin 81 mg PO DAILY #30 tab.chew Atorvastatin [Lipitor] 40 mg PO HS #30 tablet Clopidogrel [Plavix] 75 mg PO DAILY #30 tablet Isosorbide MONOnitrate (24 HR) [Imdur] 60 mg PO DAILY #30 tab.er.24h Home Medications: Doxepin [Sinequan] 25 mg PO TID 05/17/15 [History] Albuterol Sulfate [Ventolin Hfa] 2 puff IH Q4H PRN 07/23/17 [History] Buspirone HCl [Buspar] 10 mg PO BID 07/23/17 [History] Carvedilol 12.5 mg PO BID 07/23/17 [History] Citalopram Hydrobromide [Citalopram HBr] 40 mg PO QPM 07/23/17 [History] Ropinirole HCl [Requip] 0.5 mg PO DAILY 07/23/17 [History] Magnesium Oxide [Magnesium] 400 mg PO DAILY #10 tablet 08/06/17 [Rx] risperiDONE [RisperDAL] 0.25 mg PO BID PRN tablet 08/06/17 [Rx] Benztropine [Cogentin] 1 mg PO BID 07/27/18 [History] Loratadine [Allergy Relief] 10 mg PO DAILY 07/27/18 [History] Melatonin [Melatin] 3 mg PO HS 07/27/18 [History] Omeprazole [PriLOSEC] 20 mg PO DAILY 07/27/18 [History] SUMAtriptan Succinate [Imitrex] 100 mg PO Q2H PRN MDD 200 mg 07/27/18 [History] risperiDONE [Risperdal] 2 mg PO QAM 07/27/18 [History] risperiDONE [Risperdal] 3 mg PO HS 07/27/18 [History] Aspirin 81 mg PO DAILY #30 tab.chew 07/29/18 [Rx] Atorvastatin [Lipitor] 40 mg PO HS #30 tablet 07/29/18 [Rx] Clopidogrel [Plavix] 75 mg PO DAILY #30 tablet 07/29/18 [Rx] Isosorbide MONOnitrate (24 HR) [Imdur] 60 mg PO DAILY #30 tab.er.24h 07/29/18 [Rx] Allergies/Adverse Reactions: Allergy/AdvReac Type Severity Reaction Status Date / Time No Known Allergies Allergy Verified 07/29/18 00:57 Date of admission: 07/27/18 09:40 Primary care physician: PCP NONE Consults: 07/27/18 11:08 Consult to Cardiac Rehabilitation-Phase1 [CONS] Routine Comment: Reason for Consult: AMI Call Completed: Yes Consult to Nurse Navigator [CONS] Routine Comment: 07/27/18 12:00 Consult to Oncology [CONS] Routine Consulting Provider: [facility] Reason for Consult: Thrombocytopenia Call Completed: Yes Discharging clinician: Domenic Hoyt Anticipated date of discharge: 07/29/18 - Constitutional Vitals: Temp Pulse Resp BP Pulse Ox 97.8 F 64 17 112/60 96 07/29/18 11:44 07/29/18 11:00 07/29/18 11:00 07/29/18 11:00 07/29/18 11:00 Exam: Gen.: Vitals noted. No acute distress. AAOx3 HEENT: oropharynx clear, Normocephalic, atraumatic Neck: Supple. No adenopathy. Cardiac: RRR, no murmur, +S1/S2, no lower extremity edema Pulmonary: CTA bilaterally, no wheezes, rales or rhonchi, equal chest expansion Abdomen: soft, nontender, Bowel sounds noted, no guarding Extremities: nontender calf, no cyanosis or clubbing Neuro: A&Ox3, moves all extremities, no focal deficits Psych: Appropriate mood and behavior - Patient Status Disposition: Home, Self-Care Condition: Fair Functional capacity at discharge: independent ambulation - Discharge Instructions Instructions: Left Heart Catheterization (DC) Follow Up With: Monica Aldrich MD [Partnered Physician] - 08/04/18 8:45 am Jared Connelly MD [Partnered Physician] - 08/03/18 11:00 am Awilda Aguilera [Partnered Physician] - (PHYSICIAN'S OFFICE WILL CALL YOU TO SET UP APPT.) [facility] [Provider Group] Additional Instructions: -continue with aspirin and Plavix (DAPT) uninterrupted for one year. Continue to take carvedilol and Imdur as well. To follow up with cardiology. -follow-up with Dr. Sprague in 1 week for your thrombocytopenia. -Return to the ED should you develop chest pain, bleeding - Diet and Activity Activity: resume usual activities as tolerated Diet: low salt diet <Domenic Hoyt - Last Filed: 07/29/18 16:36> Orders not resulted at time of discharge: Pending orders 07/28/18 07:00 ECG 12 lead ECG [ECG] Routine Date of Encounter: 07/29/18 - Discharge Diagnosis (1) Schizophrenia Status: Chronic Qualifiers: Schizophrenia type: unspecified Qualified Code(s): F20.9 - Schizophrenia, unspecified (2) Non-ST elevation [place] (NSTEMI) Status: Acute (3) CAD (coronary artery disease) Status: Chronic Qualifiers: Coronary Disease-Associated Artery/Lesion type: [place] artery [place] vs. transplanted heart: [place] heart Associated angina: without angina Qualified Code(s): I25.10 - Atherosclerotic heart disease of [place] coronary artery without angina pectoris (4) Thrombocytopenia Status: Chronic (5) HTN (hypertension) Status: Chronic Qualifiers: Hypertension type: essential hypertension Qualified Code(s): I10 - Essential (primary) hypertension (6) Tobacco abuse Status: Chronic (7) CHF (congestive heart failure) Status: Chronic Qualifiers: Heart failure type: diastolic Heart failure chronicity: chronic Qualified Code(s): I50.32 - Chronic diastolic (congestive) heart failure Hospital course: Mr. Durand is a 63 year old male - Time Spent with Patient Total time spent providing and/or coordinating discharge services: 38min Date of admission: 07/27/18 09:40 Primary care physician: PCP NONE Consults: 07/27/18 11:08 Consult to Cardiac Rehabilitation-Phase1 [CONS] Routine Comment: Reason for Consult: AMI Call Completed: Yes Consult to Nurse Navigator [CONS] Routine Comment: 07/27/18 12:00 Consult to Oncology [CONS] Routine Consulting Provider: [facility] Reason for Consult: Thrombocytopenia Call Completed: Yes - Constitutional Vitals: Temp Pulse Resp BP Pulse Ox 97.8 F 64 17 112/60 96 07/29/18 11:44 07/29/18 11:00 07/29/18 11:00 07/29/18 11:00 07/29/18 11:00 - Attending Attestation I examined this patient and my medical decision-making was reviewed with the Resident Physician on 07/29/18. I agree with the documented findings, disposition and treatment plan as described except to the extent set forth below. Mr Durand has been admitted for acute NSTEMI. He is s/p stent. He is chr onically thrombocytopenic and this is stable post procedure. He is afebrile and ready for discharge home. Exam Alert Comfortable Mucus membranes dry Heart distant and not tachy Lungs clear Abd soft and nontender Plan D/C home today.
--- NOTE | 2018-07-29 15:39 | Oncology Inp Progress Note ---
Date of Encounter: 07/29/18 Time of Encounter: 15:00 (1) Thrombocytopenia Current Visit: Yes Status: Chronic Assessment and plan: Chronic, dating back to January 2016, In presence of known history of hepatitis C Reviewed CT abdomen/pelvis July 2017 which revealed splenomegaly, abdominal ascites, cirrhosis could not be excluded S/P [facility] report revealed one-vessel coronary artery disease, patient is status post PTCA in the mid OM Currently on ASA and Plavix per cardiology No active s/s bleeding noted currently Plan: Patient understands that he continues to be at high risk for bleeding secondary to thrombocytopenia with concomitant DAPT Reviewed cardiology note, DAPT is recommended uninterrupted for minimum of 12 months, DAPT cannot be stopped Recommend platelet transfusion for platelet count 30-40 IF s/s bleeding noted, recommend platelet transfusion for platelet count <30 He would benefit from GI referral, he had prior hepatitis C treatment in 2006 per patient? apparently unsuccessful at controlling viral load?, would appreciat e GI recommendations on any hepatitis c treatment that may be of benefit to patient, this may be done as outpatient He has follow up scheduled with Dr. Sprague in 1 week with CBC/CMP, he will need close outpatient monitoring He was advised on s/s of bleeding of which he would need to report to ER for Plan of care as above discussed with patient at bedside, hematology will otherwise plan to sign off at this time, feel free to contact with any other questions or concerns. Oncology: Subj Interval history: Patient resting in bed. NO acute events overnight. Denies pain, SOB, chest pain, palpitations, abdominal pain, fever/ chill or any s/s bleeding. He is hopeful for discharge soon before the holiday but waiting on medical clearance - Constitutional Vitals: Vital Signs Temp Pulse Resp BP Pulse Ox 07/29/18 11:44 97.8 F 07/29/18 11:00 64 17 112/60 96 07/29/18 06:59 98.1 F 64 17 131/81 95 07/29/18 04:00 99.2 F 66 15 124/79 93 07/28/18 20:00 99 F 71 16 129/77 95 07/28/18 15:54 98.5 F 70 16 116/69 95 Intake and Output 07/28/18 07/29/18 07/29/18 23:59 07:59 15:59 Intake Total 597 / 597 60 / 60 600 / 600 Output Total 1050 / 1050 775 / 775 Balance -453 / -453 -715 / -715 600 / 600 Intake: IV Fluids 117 / 117 Nitroglycerin Premix 25 MG/250 109 / 109 ML 25 mg In 250 ml @ 5 MCG/MIN 3 mls/hr IVC .Q24H [facility] Rx#: [id number] Oral 480 / 480 60 / 60 600 / 600 Output: Urine 1050 / 1050 775 / 775 Other: Meal Dinner Lunch Percent of Meal Consumed 100% 60% Weight 98.4 kg Patient Weight 07/29/18 23:59 Weight 98.4 kg General appearance: cooperative, no acute distress, no febrile - Head Head exam: Present: atraumatic - ENT ENT exam: Present: mucous membranes moist - Respiratory Respiratory exam: Present: CTAB. Absent: respiratory distress - Cardiovascular Cardiovascular exam: Present: RRR, +S1, +S2 - GI/Abdominal GI/Abdominal exam: Present: normal bowel sounds, soft. Absent: tenderness - Extremities Exam Extremities exam: Present: normal inspection. Absent: calf tenderness - Neurological Exam Neurological exam: Present: alert, oriented X3, no focal deficits, strengths equal and symetr throughout - Psychiatric Psychiatric exam: Present: normal affect, normal mood - Skin Skin exam: Present: dry, intact, normal color, warm Additional comments: Groin site ADRIANE, no s/s bleeding Oncology: Obj Data - Labs CBC & Chem 7: 07/29/18 04:46 07/29/18 04:46 - ABG Interpretation ABG results: PT/INR, D-dimer PT 12.6 Seconds (9.4-12.1) H 07/27/18 06:33 D-Dimer 723 ng/mLFEU (0-500) H 07/27/18 06:33 Consult Discharge Plan - Plan Instructions: Left Heart Catheterization (DC) Additional Instructions: -continue with aspirin and Plavix (DAPT) uninterrupted for one year. Continue to take carvedilol and Imdur as well. To follow up with cardiology. -follow-up with Dr. Sprague in 1 week for your thrombocytopenia. -Return to the ED should you develop chest pain, bleeding Referrals: [facility] [Provider Group] Monica Aldrich MD [Partnered Physician] - 08/04/18 8:45 am Jared Connelly MD [Partnered Physician] - 08/03/18 11:00 am Awilda Aguilera [Partnered Physician] - (PHYSICIAN'S OFFICE WILL CALL YOU TO SET UP APPT.) Prescriptions: Aspirin 81 mg PO DAILY #30 tab.chew Atorvastatin [Lipitor] 40 mg PO HS #30 tablet Clopidogrel [Plavix] 75 mg PO DAILY #30 tablet Isosorbide MONOnitrate (24 HR) [Imdur] 60 mg PO DAILY #30 tab.er.24h Inpatient Charges Provider: Cha Ryan CNP Follow up - Inpatient: [id number]
== END 2018-07-29 18:55 | disposition home or self-care (01) | DRG 247 ==
LOC: EMEROOARM 06:24 → 2NENU 09:30 → SUATTDRO 09:40
PROVIDERS: ADMIT Internal Medicine; ATTEND Internal Medicine

== ENCOUNTER 2021-12-19 10:52 | Inpatient (IN) ==
[2021-12-19] MEDS ORDERED: Naloxone 0.4 MG/ML INJ IVP PRN (12:16)
[2021-12-19] MEDS ORDERED: *HR* OxyCODONE Immed Rel 5 MG TABLET PO PRN (12:16)
[2021-12-19] MEDS ORDERED: *HR* HYDROcodone/Acet 5/325 mg TABLET PO PRN (12:16)
[2021-12-19 13:34] LABS: RBC,Peritoneal Fluid < 2000 RBC/mcL
[2021-12-19 14:15] LABS: Glucose,Peritoneal Fluid 125 mg/dL (No Ref Range); LDH,Peritoneal Fluid 51 Units/L (No Ref Range); Total Protein,Peritoneal Fluid < 2.0 g/dL
[2021-12-19 14:58] LABS: Basophils,Peritoneal Fluid 0 %; Eosinophils,Peritoneal Fluid 0 %
[2021-12-19 15:02] LABS: Appearance of Peritoneal Fl CLEAR (Clear)
[2021-12-19] MEDS: Albumin 25% 25gram/100mL 25 GM/100 ML IV.SOLN IVPB SCH ×2 (16:56→23:46)
[2021-12-19] MEDS: Lactulose Oral Soln 20 GM/30 ML UDC PO SCH (21:06)
[2021-12-20 05:04] LABS: Basophils % 0.9 %
[2021-12-20 05:06] LABS: Eosinophils # 0.1 K/mcL (0.0-0.6); Eosinophils % 2.4 %; Hematocrit 30.4 % (37.5-50.1); Hemoglobin 10.5 g/dL (12.9-16.9); Immature Granulocytes % 0.3 % (0-4); Immature Platelets 4.4 % (1.1-6.1); Lymphocytes # 0.6 K/mcL (0.6-4.6); Lymphocytes % 17.6 %; Mean Corpuscular HGB Conc 34.5 g/dL (31.6-35.5); Mean Corpuscular Hemoglobin 33.7 pg (28.0-33.3); Mean Corpuscular Volume 97.4 fL (83.0-100.0); Mean Platelet Volume 11.2 fL (9.4-12.4); Monocytes # 0.4 K/mcL (0.0-1.3); Monocytes % 12.8 %; Neutrophils # 2.2 K/mcL (1.6-8.9); Red Blood Count 3.12 M/mcL (4.19-5.50); Red Cell Distribution Width 13.1 % (11.5-14.5); White Blood Count 3.4 K/mcL (4.3-11.1)
[2021-12-20 05:11] LABS: Platelet Count 43 K/mcL (140-400)
[2021-12-20 05:13] LABS: Platelet Estimate Decreased (Normal)
[2021-12-20 05:16] LABS: INR 1.3; Prothrombin Time 14.7 Seconds (9.4-12.1)
[2021-12-20 05:27] LABS: Magnesium 1.5 mg/dL (1.6-2.6); Phosphorous 3.2 mg/dL (2.7-4.5); Potassium 3.7 mEq/L (3.5-5.1)
[2021-12-20] MEDS: Pantoprazole 40 MG VIAL IVP SCH (09:00)
[2021-12-20] MEDS: Albumin 25% 25gram/100mL 25 GM/100 ML IV.SOLN IVPB SCH ×3 (09:01→23:45)
[2021-12-20] MEDS: Lactulose Oral Soln 20 GM/30 ML UDC PO SCH ×2 (09:01→19:56)
[2021-12-20] MEDS: Magnesium Oxide 400 MG TABLET PO SCH (09:03)
[2021-12-20] MEDS: *HR* HYDROcodone/Acet 5/325 mg TABLET PO PRN ×2 (09:03→15:23)
[2021-12-20] MEDS: Furosemide 40 MG TABLET PO SCH (12:06)
[2021-12-20] MEDS ORDERED: tiZANidine 4 MG TABLET PO ONE (12:10)
[2021-12-20 12:50] LABS: Hematocrit 31.5 % (37.5-50.1); Hemoglobin 10.9 g/dL (12.9-16.9)
[2021-12-21 01:21] LABS: Fluid Source for Albumin PERITONEAL FL
[2021-12-21] MEDS: *HR* HYDROcodone/Acet 5/325 mg TABLET PO PRN ×3 (03:17→20:29)
[2021-12-21 03:35] LABS: Basophils % 0.5 %; Immature Granulocytes % 0.3 % (0-4); Red Cell Distribution Width 13.3 % (11.5-14.5)
[2021-12-21 03:37] LABS: Eosinophils # 0.1 K/mcL (0.0-0.6); Eosinophils % 2.6 %; Hematocrit 28.9 % (37.5-50.1); Hemoglobin 9.5 g/dL (12.9-16.9); Immature Platelets 5.4 % (1.1-6.1); Lymphocytes # 0.7 K/mcL (0.6-4.6); Lymphocytes % 17.9 %; Mean Corpuscular HGB Conc 32.9 g/dL (31.6-35.5); Mean Corpuscular Volume 100.3 fL (83.0-100.0); Mean Platelet Volume 10.6 fL (9.4-12.4); Monocytes # 0.5 K/mcL (0.0-1.3); Monocytes % 12.7 %; Neutrophils # 2.6 K/mcL (1.6-8.9); Red Blood Count 2.88 M/mcL (4.19-5.50); White Blood Count 3.9 K/mcL (4.3-11.1)
[2021-12-21 03:43] LABS: Platelet Count 41 K/mcL (140-400)
[2021-12-21 03:46] LABS: Albumin 3.1 g/dL (3.5-5.7); Albumin/Globulin Ratio 1.3 (1.1-2.2); Bilirubin,Direct 0.5 mg/dL (0.0-0.2); Bilirubin,Indirect 0.6 mg/dL (0.0-1.0); Bilirubin,Total 1.1 mg/dL (0.3-1.0); Calcium 8.2 mg/dL (8.6-10.3); Globulin 2.4 g/dL (2.4-3.5); Magnesium 1.4 mg/dL (1.6-2.6); Potassium 3.9 mEq/L (3.5-5.1); Total Protein 5.5 g/dL (6.4-8.9)
[2021-12-21 03:56] LABS: INR 1.3; Prothrombin Time 14.7 Seconds (9.4-12.1)
[2021-12-21 04:00] LABS: Hepatitis B Surface Antibody < 3.10 mIU/mL
[2021-12-21 04:11] LABS: Hepatitis B Surface Antigen Nonreactive (Nonreactive)
[2021-12-21] MEDS: Albumin 25% 25gram/100mL 25 GM/100 ML IV.SOLN IVPB SCH ×2 (08:09→15:59)
[2021-12-21] MEDS: Magnesium Oxide 400 MG TABLET PO SCH (08:50)
[2021-12-21] MEDS: Lactulose Oral Soln 20 GM/30 ML UDC PO SCH ×3 (08:51→20:28)
[2021-12-21] MEDS: Furosemide 40 MG TABLET PO SCH (09:05)
[2021-12-21] MEDS: Pantoprazole 40 MG VIAL IVP SCH (09:18)
[2021-12-21] MEDS: Ondansetron 4 MG/2 ML VIAL IVP PRN (11:08)
[2021-12-21] MEDS ORDERED: Acetaminophen 325 MG TABLET PO ONE (11:26)
[2021-12-21] MEDS: Piperacillin/Tazobactam 3.375 GM in 0.9 % Sodium Chloride Mini Bag 100 ML IVPB SCH ×2 (12:18→20:29)
[2021-12-21 13:20] LABS: Bilirubin,Urine Negative (Negative); Blood,Urine Large (Negative); Clarity,Urine Turbid (Clear); Color,Urine Dark-Brown (Yellow); Glucose,Urine (UA) Normal (Normal); Ketones,Urine Negative (Negative); Leukocyte Esterase,Urine Small (Negative); Nitrite,Urine Negative (Negative); PH,Urine 6.5 pH Units (5.0-8.0); Protein,Urine >=300 mg/dL (Neg-Trace); Specific Gravity,Urine 1.023 (1.010-1.025); Urobilinogen,Urine Normal (Normal)
[2021-12-21 13:45] LABS: Adenovirus Not Detected (Not Detect); Bordetella Pertussis Not Detected (Not Detect); Chlamydophila pneumoniae Not Detected (Not Detect); Coronavirus 229E Not Detected (Not Detect); Coronavirus HKU1 Not Detected (Not Detect); Coronavirus NL63 Not Detected (Not Detect); Coronavirus OC43 Not Detected (Not Detect); Human Metapneumovirus Not Detected (Not Detect); Human Rhinovirus/Enterovirus Not Detected (Not Detect); Influenza A Subtype 2009 H1 Not Detected (Not Detect); Influenza B Not Detected (Not Detect); Mycoplasma pneumoniae Not Detected (Not Detect); Parainfluenza Virus 1 Not Detected (Not Detect); Parainfluenza Virus 2 Not Detected (Not Detect); Parainfluenza Virus 3 Not Detected (Not Detect); Parainfluenza Virus 4 Not Detected (Not Detect); Respiratory Syncytial Virus Not Detected (Not Detect); SARS-CoV-2 Not Detected (Not Detect)
[2021-12-21 14:33] LABS: Uric Acid 8.9 mg/dL (2.3-7.6)
[2021-12-22] MEDS: *HR* HYDROcodone/Acet 5/325 mg TABLET PO PRN ×3 (02:31→22:20)
[2021-12-22] MEDS: Piperacillin/Tazobactam 3.375 GM in 0.9 % Sodium Chloride Mini Bag 100 ML IVPB SCH ×3 (03:53→22:19)
[2021-12-22 04:31] LABS: Mean Corpuscular Volume 98.3 fL (83.0-100.0); Red Cell Distribution Width 13.2 % (11.5-14.5)
[2021-12-22 04:33] LABS: Basophils % 0.4 %; Eosinophils # 0.1 K/mcL (0.0-0.6); Eosinophils % 1.1 %; Hematocrit 29.5 % (37.5-50.1); Hemoglobin 10.2 g/dL (12.9-16.9); Immature Granulocytes % 0.6 % (0-4); Lymphocytes # 1.1 K/mcL (0.6-4.6); Lymphocytes % 11.9 %; Mean Corpuscular HGB Conc 34.6 g/dL (31.6-35.5); Mean Platelet Volume 11.1 fL (9.4-12.4); Monocytes # 1.1 K/mcL (0.0-1.3); Monocytes % 11.8 %; Neutrophils # 6.9 K/mcL (1.6-8.9); Segmented Neutrophils % 74.2 %; White Blood Count 9.3 K/mcL (4.3-11.1)
[2021-12-22 04:38] LABS: Platelet Count 37 K/mcL (140-400)
[2021-12-22 04:41] LABS: INR 1.5; Prothrombin Time 16.7 Seconds (9.4-12.1)
[2021-12-22 04:51] LABS: Albumin 2.8 g/dL (3.5-5.7); Albumin/Globulin Ratio 1.2 (1.1-2.2); Bilirubin,Direct 0.8 mg/dL (0.0-0.2); Bilirubin,Total 1.8 mg/dL (0.3-1.0); Calcium 8.1 mg/dL (8.6-10.3); Globulin 2.4 g/dL (2.4-3.5); Magnesium 1.7 mg/dL (1.6-2.6); Potassium 4.1 mEq/L (3.5-5.1); Total Protein 5.2 g/dL (6.4-8.9)
[2021-12-22] MEDS: Lactulose Oral Soln 20 GM/30 ML UDC PO SCH ×2 (08:42→22:20)
[2021-12-22] MEDS: Magnesium Oxide 400 MG TABLET PO SCH (08:43)
[2021-12-22 09:35] LABS: Calcium 8.1 mg/dL (8.6-10.3)
[2021-12-22] MEDS ORDERED: Sodium Bicarbonate 150 MEQ in D5% in Water 1,000 ML IVC SCH ×2 (10:45→11:45)
[2021-12-22] MEDS ORDERED: D5% in Water 1,000 ML IVC ONE (11:33)
[2021-12-22 12:51] LABS: Bacteria,Urine Few per hpf (None-Few); Bilirubin,Urine Negative (Negative); Blood,Urine Large (Negative); Clarity,Urine Ex.Turbid (Clear); Color,Urine Dark-Brown (Yellow); Glucose,Urine (UA) Normal (Normal); Ketones,Urine Negative (Negative); Leukocyte Esterase,Urine Large (Negative); Mucus,Urine Few per lpf (None-Few); Nitrite,Urine Negative (Negative); PH,Urine 6.5 pH Units (5.0-8.0); Protein,Urine >=300 mg/dL (Neg-Trace); RBC,Urine TNTC per hpf (0-3); Sodium, Urine 15.3 mEq/L; Specific Gravity,Urine 1.018 (1.010-1.025); Sperm,Urine Present per hpf (None Seen); Urobilinogen,Urine Normal (Normal); WBC,Urine TNTC per hpf (0-3)
[2021-12-22] MEDS: Albumin 25% 25gram/100mL 25 GM/100 ML IV.SOLN IVPB SCH ×2 (15:26→23:50)
[2021-12-23] MEDS: Piperacillin/Tazobactam 3.375 GM in 0.9 % Sodium Chloride Mini Bag 100 ML IVPB SCH ×3 (04:18→19:49)
[2021-12-23 05:36] LABS: Basophils % 0.3 %; Hemoglobin 9.6 g/dL (12.9-16.9); White Blood Count 6.6 K/mcL (4.3-11.1)
[2021-12-23 05:38] LABS: Eosinophils # 0.1 K/mcL (0.0-0.6); Eosinophils % 1.7 %; Hematocrit 28.1 % (37.5-50.1); Immature Granulocytes % 0.3 % (0-4); Lymphocytes # 0.9 K/mcL (0.6-4.6); Lymphocytes % 13.1 %; Mean Corpuscular HGB Conc 34.2 g/dL (31.6-35.5); Mean Corpuscular Volume 96.6 fL (83.0-100.0); Mean Platelet Volume 11.6 fL (9.4-12.4); Monocytes # 0.9 K/mcL (0.0-1.3); Monocytes % 13.3 %; Neutrophils # 4.7 K/mcL (1.6-8.9); Red Blood Count 2.91 M/mcL (4.19-5.50); Red Cell Distribution Width 13.4 % (11.5-14.5); Segmented Neutrophils % 71.3 %
[2021-12-23 05:42] LABS: Platelet Count 37 K/mcL (140-400)
[2021-12-23 05:49] LABS: INR 1.5; Prothrombin Time 16.7 Seconds (9.4-12.1)
[2021-12-23 05:55] LABS: Albumin/Globulin Ratio 1.4 (1.1-2.2); Bilirubin,Direct 0.7 mg/dL (0.0-0.2); Bilirubin,Indirect 0.9 mg/dL (0.0-1.0); Bilirubin,Total 1.6 mg/dL (0.3-1.0); Calcium 8.1 mg/dL (8.6-10.3); Globulin 2.2 g/dL (2.4-3.5); Potassium 3.9 mEq/L (3.5-5.1); Total Protein 5.2 g/dL (6.4-8.9)
[2021-12-23] MEDS: Magnesium Oxide 400 MG TABLET PO SCH (08:17)
[2021-12-23] MEDS: *HR* HYDROcodone/Acet 5/325 mg TABLET PO PRN ×2 (08:17→19:50)
[2021-12-23] MEDS: Lactulose Oral Soln 20 GM/30 ML UDC PO SCH (08:18)
[2021-12-23] MEDS: Albumin 25% 25gram/100mL 25 GM/100 ML IV.SOLN IVPB SCH ×2 (08:18→15:40)
[2021-12-23 12:39] LABS: Hepatitis B Core Ab Total NEGATIVE (Negative)
[2021-12-23] MEDS: Ondansetron 4 MG/2 ML VIAL IVP PRN (16:04)
[2021-12-23] MEDS: Melatonin 3 MG TABLET PO SCH (19:50)
[2021-12-24] MEDS: Albumin 25% 25gram/100mL 25 GM/100 ML IV.SOLN IVPB SCH ×3 (00:10→16:46)
[2021-12-24 01:05] LABS: Basophils % 0.6 %; Eosinophils # 0.1 K/mcL (0.0-0.6); Eosinophils % 2.4 %; Hematocrit 28.2 % (37.5-50.1); Hemoglobin 9.5 g/dL (12.9-16.9); Immature Granulocytes % 0.4 % (0-4); Immature Platelets 8.7 % (1.1-6.1); Lymphocytes # 0.6 K/mcL (0.6-4.6); Lymphocytes % 13.5 %; Mean Corpuscular HGB Conc 33.7 g/dL (31.6-35.5); Mean Corpuscular Hemoglobin 33.3 pg (28.0-33.3); Mean Corpuscular Volume 98.9 fL (83.0-100.0); Mean Platelet Volume 11.9 fL (9.4-12.4); Monocytes # 0.6 K/mcL (0.0-1.3); Monocytes % 13.3 %; Neutrophils # 3.3 K/mcL (1.6-8.9); Platelet Count 39 K/mcL (140-400); Red Blood Count 2.85 M/mcL (4.19-5.50); Red Cell Distribution Width 13.5 % (11.5-14.5); Segmented Neutrophils % 69.8 %; White Blood Count 4.7 K/mcL (4.3-11.1)
[2021-12-24 01:11] LABS: INR 1.5; Prothrombin Time 16.5 Seconds (9.4-12.1)
[2021-12-24 02:45] LABS: Albumin 3.3 g/dL (3.5-5.7); Albumin/Globulin Ratio 1.4 (1.1-2.2); Bilirubin,Direct 0.6 mg/dL (0.0-0.2); Bilirubin,Indirect 0.7 mg/dL (0.0-1.0); Bilirubin,Total 1.3 mg/dL (0.3-1.0); Calcium 8.4 mg/dL (8.6-10.3); Globulin 2.3 g/dL (2.4-3.5); Potassium 4.6 mEq/L (3.5-5.1); Total Protein 5.6 g/dL (6.4-8.9)
[2021-12-24] MEDS: Piperacillin/Tazobactam 3.375 GM in 0.9 % Sodium Chloride Mini Bag 100 ML IVPB SCH ×2 (04:18→12:34)
[2021-12-24] MEDS ORDERED: Lactulose Oral Soln 20 GM/30 ML UDC PO SCH (09:00)
[2021-12-24] MEDS: Magnesium Oxide 400 MG TABLET PO SCH (09:43)
[2021-12-24] MEDS: Sodium Bicarbonate 150 MEQ in D5% in Water 1,000 ML IVC SCH ×2 (12:04→23:54)
[2021-12-24] MEDS: *HR* HYDROcodone/Acet 5/325 mg TABLET PO PRN (13:05)
[2021-12-24 16:33] LABS: Protein/Creatinine Ratio,Urine 11.81 mg/mg (0.00-0.20)
[2021-12-24] MEDS: Ampicillin 2,000 MG in 0.9 % Sodium Chloride Mini Bag 100 ML IVPB SCH ×2 (17:00→23:16)
[2021-12-24] MEDS: Melatonin 3 MG TABLET PO SCH (21:44)
[2021-12-25] MEDS: *HR* HYDROcodone/Acet 5/325 mg TABLET PO PRN ×2 (01:28→21:12)
[2021-12-25 02:47] LABS: Immature Granulocytes % 0.3 % (0-4)
[2021-12-25 02:50] LABS: Basophils % 0.6 %; Eosinophils # 0.1 K/mcL (0.0-0.6); Eosinophils % 3.9 %; Hematocrit 26.9 % (37.5-50.1); Immature Platelets 7.1 % (1.1-6.1); Lymphocytes # 0.6 K/mcL (0.6-4.6); Lymphocytes % 17.6 %; Mean Corpuscular HGB Conc 33.5 g/dL (31.6-35.5); Mean Corpuscular Volume 98.5 fL (83.0-100.0); Mean Platelet Volume 12.2 fL (9.4-12.4); Monocytes # 0.7 K/mcL (0.0-1.3); Monocytes % 21.2 %; Neutrophils # 1.9 K/mcL (1.6-8.9); Red Blood Count 2.73 M/mcL (4.19-5.50); Red Cell Distribution Width 13.6 % (11.5-14.5); Segmented Neutrophils % 56.4 %; White Blood Count 3.3 K/mcL (4.3-11.1)
[2021-12-25 02:56] LABS: INR 1.5; Prothrombin Time 16.3 Seconds (9.4-12.1)
[2021-12-25 02:58] LABS: Albumin 3.3 g/dL (3.5-5.7); Albumin/Globulin Ratio 1.5 (1.1-2.2); Bilirubin,Direct 0.5 mg/dL (0.0-0.2); Bilirubin,Indirect 0.6 mg/dL (0.0-1.0); Bilirubin,Total 1.1 mg/dL (0.3-1.0); Calcium 8.2 mg/dL (8.6-10.3); Globulin 2.2 g/dL (2.4-3.5); Potassium 4.2 mEq/L (3.5-5.1); Total Protein 5.5 g/dL (6.4-8.9)
[2021-12-25 03:23] LABS: Platelet Count 41 K/mcL (140-400)
[2021-12-25 04:00] LABS: Platelet Estimate Decreased (Normal)
[2021-12-25] MEDS: Ampicillin 2,000 MG in 0.9 % Sodium Chloride Mini Bag 100 ML IVPB SCH ×3 (08:39→23:36)
[2021-12-25] MEDS: Lactulose Oral Soln 20 GM/30 ML UDC PO SCH (08:40)
[2021-12-25] MEDS: Magnesium Oxide 400 MG TABLET PO SCH (08:40)
[2021-12-25] MEDS: Sodium Bicarbonate 150 MEQ in D5% in Water 1,000 ML IVC SCH ×2 (12:16→22:52)
[2021-12-25] MEDS: Albumin 25% 25gram/100mL 25 GM/100 ML IV.SOLN IVPB SCH ×2 (14:09→21:12)
[2021-12-25 15:11] LABS: HCV Quant Interpretation DETECTED (Not Detected); HCV Quant Log 5.61 log IU/mL
[2021-12-25] MEDS: Melatonin 3 MG TABLET PO SCH (21:12)
[2021-12-26] MEDS: Albumin 25% 25gram/100mL 25 GM/100 ML IV.SOLN IVPB SCH ×2 (06:06→14:07)
[2021-12-26 06:07] LABS: Hematocrit 25.8 % (37.5-50.1); Mean Corpuscular Volume 97.7 fL (83.0-100.0); Red Blood Count 2.64 M/mcL (4.19-5.50)
[2021-12-26 06:09] LABS: Eosinophils # 0.1 K/mcL (0.0-0.6); Eosinophils % 4.1 %; Hemoglobin 8.8 g/dL (12.9-16.9); Immature Granulocytes % 0.3 % (0-4); Immature Platelets 6.4 % (1.1-6.1); Lymphocytes # 0.8 K/mcL (0.6-4.6); Mean Corpuscular HGB Conc 34.1 g/dL (31.6-35.5); Mean Corpuscular Hemoglobin 33.3 pg (28.0-33.3); Mean Platelet Volume 11.8 fL (9.4-12.4); Monocytes % 21.6 %; Neutrophils # 1.4 K/mcL (1.6-8.9); Red Cell Distribution Width 13.6 % (11.5-14.5)
[2021-12-26 06:11] LABS: Monocytes # 0.7 K/mcL (0.0-1.3); Platelet Count 42 K/mcL (140-400)
[2021-12-26 06:20] LABS: INR 1.5; Prothrombin Time 17.1 Seconds (9.4-12.1)
[2021-12-26 06:29] LABS: Bilirubin,Direct 0.5 mg/dL (0.0-0.2); Bilirubin,Indirect 0.6 mg/dL (0.0-1.0); Bilirubin,Total 1.1 mg/dL (0.3-1.0); Calcium 8.1 mg/dL (8.6-10.3); Total Protein 5.4 g/dL (6.4-8.9)
[2021-12-26 06:56] LABS: Albumin 3.4 g/dL (3.5-5.7); Albumin/Globulin Ratio 1.7 (1.1-2.2)
[2021-12-26] MEDS: Ampicillin 2,000 MG in 0.9 % Sodium Chloride Mini Bag 100 ML IVPB SCH ×3 (08:20→23:42)
[2021-12-26] MEDS: Magnesium Oxide 400 MG TABLET PO SCH (08:20)
[2021-12-26] MEDS: Lactulose Oral Soln 20 GM/30 ML UDC PO SCH (08:25)
[2021-12-26] MEDS: *HR* HYDROcodone/Acet 5/325 mg TABLET PO PRN (08:31)
[2021-12-26] MEDS ORDERED: Perflutren Lipid Microsphere 1.3 ML in 0.9 % Sodium Chloride 8.7 ML IVP PRN (09:35)
[2021-12-26 11:14] LABS: Complement C3 65 mg/dL (87-200)
[2021-12-26] MEDS: Sodium Bicarbonate 150 MEQ in D5% in Water 1,000 ML IVC SCH (11:31)
[2021-12-26 14:57] LABS: Protein/Creatinine Ratio,Urine 9.73 mg/mg (0.00-0.20); Sodium, Urine 32.8 mEq/L
[2021-12-26] MEDS: Melatonin 3 MG TABLET PO SCH (21:21)
[2021-12-27 02:02] LABS: Basophils % 0.8 %; Hematocrit 26.3 % (37.5-50.1)
[2021-12-27 02:04] LABS: Eosinophils # 0.1 K/mcL (0.0-0.6); Eosinophils % 3.6 %; Hemoglobin 8.9 g/dL (12.9-16.9); Immature Granulocytes % 0.8 % (0-4); Immature Platelets 6.2 % (1.1-6.1); Lymphocytes # 0.7 K/mcL (0.6-4.6); Lymphocytes % 18.1 %; Mean Corpuscular HGB Conc 33.8 g/dL (31.6-35.5); Mean Corpuscular Hemoglobin 33.1 pg (28.0-33.3); Mean Corpuscular Volume 97.8 fL (83.0-100.0); Mean Platelet Volume 11.9 fL (9.4-12.4); Monocytes # 0.6 K/mcL (0.0-1.3); Monocytes % 16.1 %; Neutrophils # 2.2 K/mcL (1.6-8.9); Red Blood Count 2.69 M/mcL (4.19-5.50); Red Cell Distribution Width 13.4 % (11.5-14.5); Segmented Neutrophils % 60.6 %; White Blood Count 3.6 K/mcL (4.3-11.1)
[2021-12-27 02:11] LABS: Platelet Count 44 K/mcL (140-400)
[2021-12-27 02:23] LABS: Albumin 3.3 g/dL (3.5-5.7); Albumin/Globulin Ratio 1.5 (1.1-2.2); Bilirubin,Direct 0.6 mg/dL (0.0-0.2); Bilirubin,Indirect 0.7 mg/dL (0.0-1.0); Bilirubin,Total 1.3 mg/dL (0.3-1.0); Calcium 7.9 mg/dL (8.6-10.3); Globulin 2.2 g/dL (2.4-3.5); Magnesium 1.6 mg/dL (1.6-2.6); Total Protein 5.5 g/dL (6.4-8.9)
[2021-12-27 02:46] LABS: Folate 13.2 ng/mL (3.0-16.0)
[2021-12-27] MEDS: Magnesium Oxide 400 MG TABLET PO SCH (08:20)
[2021-12-27] MEDS: Ampicillin 2,000 MG in 0.9 % Sodium Chloride Mini Bag 100 ML IVPB SCH ×2 (08:20→17:52)
[2021-12-27] MEDS: *HR* HYDROcodone/Acet 5/325 mg TABLET PO PRN ×2 (08:23→17:53)
[2021-12-27] MEDS: Lactulose Oral Soln 20 GM/30 ML UDC PO SCH (08:24)
[2021-12-27 15:10] LABS: HCV Genotype by Sequencing 1A OR 1B
[2021-12-27] MEDS: Melatonin 3 MG TABLET PO SCH (19:54)
[2021-12-28] MEDS: *HR* HYDROcodone/Acet 5/325 mg TABLET PO PRN ×3 (00:26→21:32)
[2021-12-28] MEDS: Ampicillin 2,000 MG in 0.9 % Sodium Chloride Mini Bag 100 ML IVPB SCH (00:26)
[2021-12-28 02:11] LABS: Basophils # 0.1 K/mcL (0.0-0.2); Basophils % 1.2 %; Eosinophils # 0.2 K/mcL (0.0-0.6); Eosinophils % 4.2 %; Hemoglobin 9.8 g/dL (12.9-16.9); Immature Granulocytes % 0.5 % (0-4); Lymphocytes % 24.1 %; Mean Corpuscular HGB Conc 33.8 g/dL (31.6-35.5); Mean Corpuscular Hemoglobin 33.1 pg (28.0-33.3); Monocytes # 0.6 K/mcL (0.0-1.3); Monocytes % 13.8 %; Neutrophils # 2.4 K/mcL (1.6-8.9); Red Blood Count 2.96 M/mcL (4.19-5.50); Red Cell Distribution Width 13.6 % (11.5-14.5); Segmented Neutrophils % 56.2 %; White Blood Count 4.3 K/mcL (4.3-11.1)
[2021-12-28 02:13] LABS: Platelet Count 53 K/mcL (140-400)
[2021-12-28 02:30] LABS: Albumin 3.2 g/dL (3.5-5.7); Albumin/Globulin Ratio 1.4 (1.1-2.2); Bilirubin,Direct 0.5 mg/dL (0.0-0.2); Bilirubin,Indirect 0.7 mg/dL (0.0-1.0); Bilirubin,Total 1.2 mg/dL (0.3-1.0); Calcium 8.4 mg/dL (8.6-10.3); Globulin 2.3 g/dL (2.4-3.5); Magnesium 1.7 mg/dL (1.6-2.6); Potassium 4.2 mEq/L (3.5-5.1); Total Protein 5.5 g/dL (6.4-8.9)
[2021-12-28] MEDS: Magnesium Oxide 400 MG TABLET PO SCH (07:57)
[2021-12-28] MEDS: Lactulose Oral Soln 20 GM/30 ML UDC PO SCH (07:57)
[2021-12-28 11:34] LABS: ANA IgG by ELISA NONE DETECTED (None Detected)
[2021-12-28 11:34] LABS: Kappa Qnt Free Light Chains 145.22 mg/L (3.30-19.40); Lambda Qnt Free Light Chains 120.41 mg/L (5.71-26.30)
[2021-12-28] MEDS: Melatonin 3 MG TABLET PO SCH (21:31)
[2021-12-29 01:08] LABS: Mean Corpuscular Volume 98.6 fL (83.0-100.0); White Blood Count 4.2 K/mcL (4.3-11.1)
[2021-12-29 01:10] LABS: Basophils # 0.1 K/mcL (0.0-0.2); Basophils % 1.2 %; Eosinophils # 0.2 K/mcL (0.0-0.6); Hematocrit 28.5 % (37.5-50.1); Hemoglobin 9.4 g/dL (12.9-16.9); Immature Granulocytes % 0.5 % (0-4); Immature Platelets 4.4 % (1.1-6.1); Mean Corpuscular Hemoglobin 32.5 pg (28.0-33.3); Mean Platelet Volume 11.1 fL (9.4-12.4); Monocytes # 0.5 K/mcL (0.0-1.3); Monocytes % 10.8 %; Neutrophils # 2.4 K/mcL (1.6-8.9); Red Blood Count 2.89 M/mcL (4.19-5.50); Red Cell Distribution Width 13.6 % (11.5-14.5); Segmented Neutrophils % 57.5 %
[2021-12-29 01:15] LABS: Lymphocytes # 1.1 K/mcL (0.6-4.6); Platelet Count 63 K/mcL (140-400)
[2021-12-29 01:27] LABS: Calcium 8.5 mg/dL (8.6-10.3); Magnesium 1.7 mg/dL (1.6-2.6); Phosphorous 5.7 mg/dL (2.7-4.5); Potassium 4.4 mEq/L (3.5-5.1)
[2021-12-29 01:28] LABS: Albumin 3.1 g/dL (3.5-5.7); Albumin/Globulin Ratio 1.3 (1.1-2.2); Bilirubin,Direct 0.5 mg/dL (0.0-0.2); Bilirubin,Indirect 0.8 mg/dL (0.0-1.0); Bilirubin,Total 1.3 mg/dL (0.3-1.0); Globulin 2.4 g/dL (2.4-3.5); Total Protein 5.5 g/dL (6.4-8.9)
[2021-12-29] MEDS: *HR* HYDROcodone/Acet 5/325 mg TABLET PO PRN ×2 (03:23→22:55)
[2021-12-29] MEDS: Magnesium Oxide 400 MG TABLET PO SCH (07:44)
[2021-12-29] MEDS: Lactulose Oral Soln 20 GM/30 ML UDC PO SCH ×2 (07:44→22:54)
[2021-12-29 11:23] LABS: GBM IgG Multiplex Bead Assay 0 AU/mL (0-19); Glomerular Basement Memb IgG NEGATIVE (Negative)
[2021-12-29] MEDS: Melatonin 3 MG TABLET PO SCH (22:55)
[2021-12-30 03:10] LABS: Basophils % 1.1 %; Red Cell Distribution Width 13.6 % (11.5-14.5)
[2021-12-30 03:12] LABS: Basophils # 0.1 K/mcL (0.0-0.2); Eosinophils # 0.2 K/mcL (0.0-0.6); Eosinophils % 3.3 %; Hematocrit 29.1 % (37.5-50.1); Hemoglobin 9.6 g/dL (12.9-16.9); Immature Granulocytes % 0.4 % (0-4); Lymphocytes # 1.4 K/mcL (0.6-4.6); Lymphocytes % 29.7 %; Mean Corpuscular Hemoglobin 32.9 pg (28.0-33.3); Mean Corpuscular Volume 99.7 fL (83.0-100.0); Mean Platelet Volume 10.6 fL (9.4-12.4); Monocytes # 0.5 K/mcL (0.0-1.3); Monocytes % 10.5 %; Neutrophils # 2.5 K/mcL (1.6-8.9); Red Blood Count 2.92 M/mcL (4.19-5.50); White Blood Count 4.6 K/mcL (4.3-11.1)
[2021-12-30 03:17] LABS: Platelet Count 74 K/mcL (140-400)
[2021-12-30 03:29] LABS: Albumin 3.3 g/dL (3.5-5.7); Albumin/Globulin Ratio 1.2 (1.1-2.2); Bilirubin,Direct 0.5 mg/dL (0.0-0.2); Bilirubin,Indirect 0.7 mg/dL (0.0-1.0); Bilirubin,Total 1.2 mg/dL (0.3-1.0); Globulin 2.7 g/dL (2.4-3.5)
[2021-12-30 03:30] LABS: Calcium 8.8 mg/dL (8.6-10.3); Magnesium 1.8 mg/dL (1.6-2.6); Potassium 4.6 mEq/L (3.5-5.1)
[2021-12-30 04:24] LABS: Alpha 2 Globulin (PEP) 0.41 g/dL (0.48-1.05)
[2021-12-30 06:41] LABS: IFE Reflexed IFE Done
[2021-12-30 06:42] LABS: Immunoglobulin A 406 mg/dL (68-408); Immunoglobulin G 849 mg/dL (768-1632); Immunoglobulin M 36 mg/dL (35-263)
[2021-12-30] MEDS: Magnesium Oxide 400 MG TABLET PO SCH (09:03)
[2021-12-30] MEDS: Albumin 25% 25gram/100mL 25 GM/100 ML IV.SOLN IVPB SCH ×2 (09:04→16:30)
[2021-12-30] MEDS: Lactulose Oral Soln 20 GM/30 ML UDC PO SCH ×2 (09:04→20:16)
[2021-12-30 15:00] LABS: ANCA IFA Titer <1:20 (<1:20)
[2021-12-30] MEDS: *HR* HYDROcodone/Acet 5/325 mg TABLET PO PRN ×2 (16:32→22:40)
[2021-12-30] MEDS: Melatonin 3 MG TABLET PO SCH (20:16)
[2021-12-30] MEDS: Pramoxine 15 GM FOAM Package TP SCH (21:31)
[2021-12-31] MEDS: Albumin 25% 25gram/100mL 25 GM/100 ML IV.SOLN IVPB SCH (01:03)
[2021-12-31 02:11] LABS: Basophils % 1.1 %; Hemoglobin 9.1 g/dL (12.9-16.9)
[2021-12-31 02:12] LABS: Eosinophils # 0.1 K/mcL (0.0-0.6); Eosinophils % 3.6 %; Hematocrit 28.1 % (37.5-50.1); Immature Granulocytes % 0.6 % (0-4); Immature Platelets 4.9 % (1.1-6.1); Lymphocytes # 0.8 K/mcL (0.6-4.6); Mean Corpuscular HGB Conc 32.4 g/dL (31.6-35.5); Mean Corpuscular Hemoglobin 32.6 pg (28.0-33.3); Mean Corpuscular Volume 100.7 fL (83.0-100.0); Mean Platelet Volume 10.8 fL (9.4-12.4); Monocytes # 0.4 K/mcL (0.0-1.3); Monocytes % 9.7 %; Neutrophils # 2.3 K/mcL (1.6-8.9); Red Blood Count 2.79 M/mcL (4.19-5.50); Red Cell Distribution Width 13.6 % (11.5-14.5); White Blood Count 3.6 K/mcL (4.3-11.1)
[2021-12-31 02:13] LABS: Platelet Count 61 K/mcL (140-400)
[2021-12-31 02:25] LABS: Magnesium 1.8 mg/dL (1.6-2.6); Phosphorous 4.6 mg/dL (2.7-4.5); Potassium 4.4 mEq/L (3.5-5.1)
[2021-12-31 07:51] LABS: ANCA IFA Pattern NONE DETECTED (None Detected); Serine Protease-3 Antibody 0 AU/mL (0-19)
[2021-12-31] MEDS: Magnesium Oxide 400 MG TABLET PO SCH (08:53)
[2021-12-31] MEDS: Lactulose Oral Soln 20 GM/30 ML UDC PO SCH ×2 (08:54→19:52)
[2021-12-31] MEDS: Pramoxine 15 GM FOAM Package TP SCH ×3 (08:59→19:52)
[2021-12-31] MEDS: *HR* HYDROcodone/Acet 5/325 mg TABLET PO PRN (09:02)
[2021-12-31] MEDS: Melatonin 3 MG TABLET PO SCH (19:53)
[2022-01-01 06:30] LABS: Basophils % 0.8 %; Eosinophils # 0.1 K/mcL (0.0-0.6); Hematocrit 26.1 % (37.5-50.1); Hemoglobin 8.4 g/dL (12.9-16.9); Immature Granulocytes % 0.3 % (0-4); Immature Platelets 3.7 % (1.1-6.1); Lymphocytes # 0.9 K/mcL (0.6-4.6); Lymphocytes % 22.5 %; Mean Corpuscular HGB Conc 32.2 g/dL (31.6-35.5); Mean Corpuscular Hemoglobin 32.2 pg (28.0-33.3); Mean Platelet Volume 10.6 fL (9.4-12.4); Monocytes # 0.4 K/mcL (0.0-1.3); Neutrophils # 2.5 K/mcL (1.6-8.9); Red Blood Count 2.61 M/mcL (4.19-5.50); Segmented Neutrophils % 63.4 %
[2022-01-01 06:34] LABS: Platelet Count 58 K/mcL (140-400)
[2022-01-01 06:48] LABS: Albumin 3.5 g/dL (3.5-5.7); Albumin/Globulin Ratio 1.5 (1.1-2.2); Bilirubin,Direct 0.5 mg/dL (0.0-0.2); Bilirubin,Indirect 0.9 mg/dL (0.0-1.0); Bilirubin,Total 1.4 mg/dL (0.3-1.0); Globulin 2.3 g/dL (2.4-3.5); Magnesium 1.7 mg/dL (1.6-2.6); Total Protein 5.8 g/dL (6.4-8.9)
[2022-01-01 06:57] LABS: Calcium 9.3 mg/dL (8.6-10.3); Potassium 4.8 mEq/L (3.5-5.1)
[2022-01-01] MEDS: Magnesium Oxide 400 MG TABLET PO SCH (08:27)
[2022-01-01] MEDS: Lactulose Oral Soln 20 GM/30 ML UDC PO SCH (08:27)
[2022-01-01] MEDS: Pramoxine 15 GM FOAM Package TP SCH ×2 (08:40→15:53)
[2022-01-01] MEDS: *HR* HYDROcodone/Acet 5/325 mg TABLET PO PRN (08:40)
[2022-01-01 10:59] LABS: Serine Protease-3 Antibody 6 AU/mL (0-19)
[2022-01-01 16:13] VITALS: BP 162/80; PULSE 84; TEMP 99.5; O2SAT 96
== END 2022-01-01 16:54 | disposition home or self-care (01) | DRG 871 ==
LOC: 2ANU → SUATTDRO 12:03
PROVIDERS: ADMIT Internal Medicine; ATTEND Pharmacist